=== PATIENT | male | born 1935 | race Caucasian/White ===

== ENCOUNTER → 2019-02-08 12:12 | Outpatient (CLI) | payer MEDICARE, OTHER, SELFPAY ==
--- NOTE | 2019-02-08 | DI.RAD.S_ITS ---
PROCEDURE: XR CHEST 2V INDICATIONS: SOB,COUGH TECHNIQUE: 2 views of the chest were acquired. COMPARISON: [facility], CHEST 2 VIEW, 09/11/2015, 15:47. [facility], CHEST 2 VIEW, 02/19/2018, 15:30. FINDINGS: Surgical changes and devices: Cardiac AICD as before Lungs and pleura: Diffuse ill-defined hazy and ground glass opacities throughout both lungs. There is elevation of right hemidiaphragm as before. No pleural effusions or pneumothorax. Mediastinum: Mediastinal contours are normal. Heart size is stable. Bones and chest wall: No suspicious bony abnormalities. Soft tissues appear unremarkable. IMPRESSION: Redemonstration of diffuse hazy ill-defined bilateral opacities, again suggesting pulmonary edema although given the lack of interim radiographs since 02/19/18, cannot exclude chronic severe interstitial disease. No definite focal consolidation. Please correlate clinically. If there is persistent clinical diagnostic uncertainty, continued surveillance with short interval chest radiographs after treatment is recommended. Dictated by: Jensen Cisneros M.D. on 02/08/2019 at 13:25 Approved by: Jensen Cisneros M.D. on 02/08/2019 at 13:27
== END ==
PROVIDERS: PCP Family Medicine; Visit Provider Family Medicine
DX: R05 Cough (principal); R06.02 Shortness of breath
CPT/HCPCS: 71046

== ENCOUNTER 2019-02-11 16:47 | Emergency (ER) | payer MEDICARE, OTHER, SELFPAY ==
[2019-02-11] VITALS (7 sets, daily range): BP systolic 107–141; BP diastolic 72–101; PULSE 73–75; RESP 13–24; TEMP 36.6; O2SAT 90–100
--- NOTE | 2019-02-11 17:29 | PC.NURSE ---
Patient c/o shaking that started APPX 5 days ago. Seen at PCP on Friday for same. Pt and family state that shaking is worse today. Tremors noted to increase with activity however shaking is constantly present
--- NOTE | 2019-02-11 17:49 | ED.EXTPRO ---
HPI - Extremity Problem <MERLY Javier - Last Filed: 02/11/19 22:05> General Chief complaint: Extremity Problem,Nontraumatic Stated complaint: UNCONTROLLED TREMORS Time Seen by Provider: 02/11/19 17:19 Source: patient and family Mode of arrival: wheelchair Limitations: no limitations History of Present Illness HPI Narrative: 83-year-old male with history of COPD, CHF and AFib that has a pacer here for complaint of having tremors to bilateral upper extremities into his torso over the past 3-4 days. reports that these tremors have worsened over the past couple of days. He is an everyday smoker. He smokes approximately half a pack a day. He lives at home he is normally ambulatory with the extent that he sees able to get up out of his recliner chair and go to the restroom and back to the recliner chair states that he spends most of his time in the recliner chair. No she chest pain no shortness of breath at this timeframe. No known fevers. He is tolerating p.o. intake he is drinking fluids. No abdominal pain. He has decreased and ability to ambulate due to these tremors over the past couple of days Related Data Home Medications Medication Instructions Recorded Confirmed carvedilol [Coreg] 37.5 mg PO BID #0 06/24/13 02/11/19 clopidogrel [Plavix] 75 mg PO QAM #0 06/24/13 02/11/19 albuterol sulfate [ProAir HFA] 2 puff INHALATION Q4H PRN 02/11/19 02/11/19 alfuzosin 10 mg PO DAILY 02/11/19 02/11/19 cefuroxime axetil 500 mg PO BID 02/11/19 02/11/19 cetirizine 10 mg PO DAILY PRN 02/11/19 02/11/19 furosemide 40 mg PO DAILY 02/11/19 02/11/19 prednisone See Rx Instructions .ROUTE .COMPLEX 02/11/19 02/11/19 pregabalin [Lyrica] 75 mg PO BID 02/11/19 02/11/19 warfarin 2.5 mg PO 2XW 02/11/19 02/11/19 warfarin 5 mg PO 5XW 02/11/19 02/11/19 Allergies Allergy/AdvReac Type Severity Reaction Status Date / Time aspirin Allergy Verified 02/11/19 17:13 Review of Systems <MERLY Javier - Last Filed: 02/11/19 22:05> Constitutional Denies chills, Denies fever(s), Denies lethargy and Denies weakness Eyes Denies change in vision, Denies eye discharge, Denies irritation and Denies loss of vision ENT Ears, Nose, Mouth, and Throat: Denies change in voice, Denies neck pain and Denies sore throat Cardiovascular Denies chest pain, Denies irregular heart rhythm, Denies lightheadedness, Denies palpitations, Denies dyspnea, Denies dyspnea on exertion and Denies orthopnea Respiratory Denies cough, Denies dyspnea, Denies dyspnea on exertion and Denies wheezing Gastrointestinal Gastrointestinal: Denies abdominal pain, Denies change in bowel habits, Denies diarrhea, Denies nausea and Denies vomiting Genitourinary Denies hematuria, Denies flank pain, Denies urinary incontinence and Denies urinary urgency Musculoskeletal Denies neck pain Comments: Tremors Integumentary/Breasts Denies pruritus, Denies erythema, Denies rash and Denies wounds Neurologic Denies confusion, Denies loss of vision and Denies weakness Psychiatric Denies anxiety, Denies confusion, Denies depression, Denies homicidal ideation and Denies suicidal ideation Endocrine Denies palpitations Hematologic/Lymphatic Denies easy bruising Allergic/Immunologic Denies wheezing PFSH <MERLY Javier - Last Filed: 02/11/19 22:05> Social History Smoking Status: Unknown if ever smoked Social History Smoking Status: Unknown if ever smoked Exam <MERLY Javier - Last Filed: 02/11/19 22:05> Initial Vital Signs Initial Vital Signs: Vital Signs Temperature 97.9 F 02/11/19 17:03 Pulse Rate 75 02/11/19 17:03 Respiratory Rate 13 02/11/19 17:03 Pulse Oximetry 90 L 02/11/19 17:03 Const General: cooperative Orientation: alert, awake and oriented x3 HENMT Mouth: oral mucosae normal and moist mucous membranes Eyes Conjunctivae: conjunctivae normal Sclera: sclerae normal Pupils: PERRL EOM: EOM intact bilaterally Resp Effort & Inspection: normal respiratory effort, able to speak in complete sentences, no respiratory distress and no use of accessory muscles Auscultation: rales, rhonchi and wheezes Cardio Rate: regular rate Rhythm: regular rhythm Heart Sounds: no click, no gallops, no murmurs and no rubs Pulses: normal peripheral pulses Skin General: no rashes or lesions noted, No jaundice and No petechiae Neuro General: alert, oriented x3, moves all extremities and other (Tremors to upper extremities and to torso that) Speech: speech normal Extrem General: full ROM, no clubbing, cyanosis or edema, no pedal edema and no calf tenderness <Maricarmen Dejesus MD - Last Filed: 02/12/19 05:34> Initial Vital Signs Initial Vital Signs: Vital Signs Temperature 97.9 F 02/11/19 17:03 Pulse Rate 75 02/11/19 17:03 Respiratory Rate 13 02/11/19 17:03 Pulse Oximetry 90 L 02/11/19 17:03 Course <MERLY Javier - Last Filed: 02/11/19 22:05> Orders Ordered: ED Orders 02/11/19 21:26 Arterial Blood Gas Stat 02/11/19 22:24 BiPAP Ventilatory Support RT PROTOCOL Vital Signs - 8 hr 02/11/19 22:50 Pulse Rate 75 Respiratory Rate 20 Blood Pressure [Right Arm] 140/72 Pulse Oximetry 100 <Maricarmen Dejesus MD - Last Filed: 02/12/19 05:34> Orders Ordered: ED Orders 02/11/19 21:26 Arterial Blood Gas Stat 02/11/19 22:24 BiPAP Ventilatory Support RT PROTOCOL Vital Signs - 8 hr 02/11/19 22:50 Pulse Rate 75 Respiratory Rate 20 Blood Pressure [Right Arm] 140/72 Pulse Oximetry 100 MDM - Extremity (Nontraumatic) <MERLY Javier - Last Filed: 02/11/19 22:05> Lab Data Result diagrams: 02/11/19 17:00 02/11/19 18:39 Lab Results 02/11/19 02/11/19 02/11/19 Range/Units 17:00 17:45 18:39 WBC 9.8 (4.5-11.0) X10^3/uL RBC 5.10 (4.5-5.9) X10^6/uL Hgb 14.1 (13.5-17.5) g/dL Hct 45.1 (41-53) % MCV 88.4 (80-100) fL MCH 27.5 (26-34) PG MCHC 31.2 (30-36) % RDW 17.3 H (11.6-14.8) % Plt Count 134 L (150-400) X10^3/uL Neut % (Auto) 88.1 H (50-75) % Lymph % (Auto) 6.2 L (25-40) % [place] % (Auto) 5.4 (3-14) % Eos % (Auto) 0.0 L (2-4) % Baso % (Auto) 0.3 (0-2) % Neut # (Auto) 8700 H (3581-3027) /uL Lymph # (Auto) 600 L (7794-9365) /uL [place] # (Auto) 500 (0-900) /uL Eos # (Auto) 0 (0-450) /uL Baso # (Auto) 0 (0-100) /uL PT 56.8 H (10.1-12.7) SECONDS INR 4.7 H* (0.9-1.3) ABG pH (7.35-7.45) ABG pCO2 (35-45) mmHg ABG pO2 (80-100) mmHg ABG HCO3 (22-26) mmol/L ABG Total CO2 (21-31) mmol/L ABG O2 Saturation (95-100) % ABG Base Excess (-2-2) mmol/L FiO2 Sodium (137-145) mmol/L Potassium (3.4-5.1) mmol/L Chloride (98-107) mmol/L Carbon Dioxide (22-32) mmol/L BUN (9-20) mg/dL Creatinine (0.66-1.25) mg/dL Estimated GFR (>60) mL/min BUN/Creatinine Ratio (6-22) Glucose (80-110) mg/dL Lactate (0.7-2.1) mmol/L Calcium (8.4-10.2) mg/dL Magnesium (1.6-2.3) mg/dL Total Bilirubin (0.2-1.3) mg/dL AST (17-59) IU/L ALT (21-72) IU/L Alkaline Phosphatase (38-126) U/L Total Creatine Kinase (55-170) U/L CK-MB (CK-2) CK-MB (CK-2) Rel Index Troponin I (0.01-0.034) ng/mL B-Natriuretic Peptide 325 H (<100) Total Protein (6.3-8.2) g/dL Albumin (3.5-5.0) g/dL Globulin (1.7-4.1) g/dL Albumin/Globulin Ratio (1.0-2.8) Procalcitonin (<0.5) ng/mL Urine RBC (0-5/HPF) Urine WBC (0-5/HPF) Ur Squamous Epith Cells Urine Bacteria (None) Ur Culture Indicated? 02/11/19 02/11/19 02/11/19 Range/Units 18:39 18:39 18:39 WBC (4.5-11.0) X10^3/uL RBC (4.5-5.9) X10^6/uL Hgb (13.5-17.5) g/dL Hct (41-53) % MCV (80-100) fL MCH (26-34) PG MCHC (30-36) % RDW (11.6-14.8) % Plt Count (150-400) X10^3/uL Neut % (Auto) (50-75) % Lymph % (Auto) (25-40) % [place] % (Auto) (3-14) % Eos % (Auto) (2-4) % Baso % (Auto) (0-2) % Neut # (Auto) (1708-4940) /uL Lymph # (Auto) (3171-6043) /uL [place] # (Auto) (0-900) /uL Eos # (Auto) (0-450) /uL Baso # (Auto) (0-100) /uL PT (10.1-12.7) SECONDS INR (0.9-1.3) ABG pH (7.35-7.45) ABG pCO2 (35-45) mmHg ABG pO2 (80-100) mmHg ABG HCO3 (22-26) mmol/L ABG Total CO2 (21-31) mmol/L ABG O2 Saturation (95-100) % ABG Base Excess (-2-2) mmol/L FiO2 Sodium 142 (137-145) mmol/L Potassium 5.2 H (3.4-5.1) mmol/L Chloride 104 (98-107) mmol/L Carbon Dioxide 29 (22-32) mmol/L BUN 89 H (9-20) mg/dL Creatinine 3.10 H (0.66-1.25) mg/dL Estimated GFR 19.4 L (>60) mL/min BUN/Creatinine Ratio 28.7 H (6-22) Glucose 125 H (80-110) mg/dL Lactate 1.3 (0.7-2.1) mmol/L Calcium 8.2 L (8.4-10.2) mg/dL Magnesium (1.6-2.3) mg/dL Total Bilirubin 0.7 (0.2-1.3) mg/dL AST 18 (17-59) IU/L ALT 24 (21-72) IU/L Alkaline Phosphatase 47 (38-126) U/L Total Creatine Kinase 25 L (55-170) U/L CK-MB (CK-2) TNP CK-MB (CK-2) Rel Index TNP Troponin I < 0.012 (0.01-0.034) ng/mL B-Natriuretic Peptide (<100) Total Protein 6.5 (6.3-8.2) g/dL Albumin 3.8 (3.5-5.0) g/dL Globulin 2.7 (1.7-4.1) g/dL Albumin/Globulin Ratio 1.4 (1.0-2.8) Procalcitonin < 0.05 (<0.5) ng/mL Urine RBC (0-5/HPF) Urine WBC (0-5/HPF) Ur Squamous Epith Cells Urine Bacteria (None) Ur Culture Indicated? 02/11/19 02/11/19 02/11/19 Range/Units 18:39 19:42 21:26 WBC (4.5-11.0) X10^3/uL RBC (4.5-5.9) X10^6/uL Hgb (13.5-17.5) g/dL Hct (41-53) % MCV (80-100) fL MCH (26-34) PG MCHC (30-36) % RDW (11.6-14.8) % Plt Count (150-400) X10^3/uL Neut % (Auto) (50-75) % Lymph % (Auto) (25-40) % [place] % (Auto) (3-14) % Eos % (Auto) (2-4) % Baso % (Auto) (0-2) % Neut # (Auto) (6511-6432) /uL Lymph # (Auto) (0274-0016) /uL [place] # (Auto) (0-900) /uL Eos # (Auto) (0-450) /uL Baso # (Auto) (0-100) /uL PT (10.1-12.7) SECONDS INR (0.9-1.3) ABG pH 7.18 L* (7.35-7.45) ABG pCO2 80.0 H* (35-45) mmHg ABG pO2 49 L* (80-100) mmHg ABG HCO3 30 H (22-26) mmol/L ABG Total CO2 33 H (21-31) mmol/L ABG O2 Saturation 72 L* (95-100) % ABG Base Excess 2.0 (-2-2) mmol/L FiO2 21 Sodium (137-145) mmol/L Potassium (3.4-5.1) mmol/L Chloride (98-107) mmol/L Carbon Dioxide (22-32) mmol/L BUN (9-20) mg/dL Creatinine (0.66-1.25) mg/dL Estimated GFR (>60) mL/min BUN/Creatinine Ratio (6-22) Glucose (80-110) mg/dL Lactate (0.7-2.1) mmol/L Calcium (8.4-10.2) mg/dL Magnesium 2.5 H (1.6-2.3) mg/dL Total Bilirubin (0.2-1.3) mg/dL AST (17-59) IU/L ALT (21-72) IU/L Alkaline Phosphatase (38-126) U/L Total Creatine Kinase (55-170) U/L CK-MB (CK-2) CK-MB (CK-2) Rel Index Troponin I (0.01-0.034) ng/mL B-Natriuretic Peptide (<100) Total Protein (6.3-8.2) g/dL Albumin (3.5-5.0) g/dL Globulin (1.7-4.1) g/dL Albumin/Globulin Ratio (1.0-2.8) Procalcitonin (<0.5) ng/mL Urine RBC None seen (0-5/HPF) Urine WBC 0-1/hpf (0-5/HPF) Ur Squamous Epith Cells 0-1 /hpf Urine Bacteria None seen (None) Ur Culture Indicated? Cult not indicated Urine Dip Bedside Urine Glucose Negative Bedside Urine Bilirubin - Negative Bedside Urine Ketone - Negative Urine Specific Mena 1.020 Bedside Urine Occult Blood - Negative Bedside Urine pH 6.0 Bedside Urine Protein ++ 100 Bedside Urine Urobilinogen - Negative Bedside Urine Nitrite - Negative Bedside Urine Leukocytes - Negative Esterase Imaging Data Chest x-ray: Radiologist's impression: [address] [address] XRay Report Signed Patient: Neal Caal TMR#: [id number] : 6Acct:[id number] Age/Sex: 83 / MDate of Service: 02/11/19 Loc: ED Accession Number: [id number] Procedure: XR chest 1V Ordering Provider: Clarence Kearney PROCEDURE: XR CHEST 1V INDICATIONS: Tremors and weakness TECHNIQUE: One view of the chest was acquired. [facility] 12[facility]10. FINDINGS: Surgical changes and devices: Right-sided cardiac pacer device is unchanged in position. Lungs and pleura: Stable appearance of diffuse, ill-defined hazy and ground glass opacities of the bilateral hemithoraces. No new focal consolidations. No substantial pleural effusion. No pneumothorax. Mediastinum: Cardiomediastinal contours are stable with prominence of the cardiac silhouette.. Bones and chest wall: No suspicious bony lesions. Overlying soft tissues appear unremarkable. IMPRESSION: Stable cardiopulmonary examination with persistent diffuse, ill-defined hazy groundglass opacities of the bilateral hemithoraces. Dictated by: John Walker M.D. on 02/11/2019 at 20:12 Approved by: John Walker M.D. on 02/11/2019 at 20:15 CT scan - head: Radiologist's impression: [address] [address] [address] Scan Report Signed Patient: Neal Caal TMR#: [id number] : 6Acct:[id number] Age/Sex: 83 / MDate of Service: 02/11/19 Loc: ED Accession Number: [id number] Procedure: CT head/brain wo con Ordering Provider: Clarence Kearney PROCEDURE: CT HEAD/BRAIN WO CON INDICATIONS: Tremors over the last few days TECHNIQUE: Noncontrast 4.5 mm thick angled axial sections acquired from the foramen magnum to the vertex, with coronal and sagittal reformats. For radiation dose reduction, the following was used: automated exposure control, adjustment of mA and/or kV according to patient size. COMPARISON: None. FINDINGS: Image quality: While beam hardening artifact. CSF spaces: Basal cisterns are patent. No extra-axial fluid collections. The ventricles are symmetric in size and shape. Brain: No intracranial bleeds or masses. There is cerebral volume loss for age, with resultant ventricular and sulcal prominence. There are periventricular and deep white matter chronic small vessel ischemic changes. There is intracranial internal carotid artery atherosclerosis. Skull and face: Calvarium and visualized facial bones appear intact, without suspicious lesions. Chronic appearing nasal bone fractures. Sinuses: There is complete opacification of the right maxillary sinus and scattered ethmoid sinuses. The mastoids are clear. IMPRESSION: CT head without acute intracranial abnormalities. Age-related senescent changes and sequela of chronic small vessel ischemic disease. Right maxillary and scattered ethmoid sinus disease. Dictated by: John Walker M.D. on 02/11/2019 at 18:49 Approved by: John Walker M.D. on 02/11/2019 at 18:51 ECG Data Interpretation: EKG shows paced rhythm no ST elevation or depression. No ectopy. Ventricular rate is 75. QRS duration was 66. QTC 426. MDM Narrative Medical decision making narrative: CT scan of the head was obtained was negative for any acute findings. Chest x-ray was obtained and shows stable cardiopulmonary presentation with ground-glass opacities to bilateral rigo thoracis no focal consolidation. CBC was obtained and will white count was unremarkable. H&H was unremarkable. Chem panel shows decreased GFR of 19.4 with elevated creatinine at 3.1 and BUN of 89. Potassium was 5.2 magnesium was 2.5 calcium was 8.2. Cardiac enzymes were obtained were unremarkable. BNP was elevated at 325. Family does not believe that he has a history of having kidney issues so probable acute kidney failure. A bg shows respiratory acidosis with a pH of 7.18 for pCO2 of 80. PO2 of 49 and H CO3 of 30. He is placed on BiPAP. Discussed case with Neurology at [facility] who states that most likely is the renal function and his uremia that is causing the myoclonus. He believes that once the kidney function is improved the myoclonus will be remedied. Due to possibility of a fluctuations in his renal function wanted patient to be transferred to a facility that has dialysis. [facility] was full so patient is sent to [place]. Discussed case with Dr. Correa sales exhibitor who accepted patient patient is sent to [place] via [facility]. <Maricarmen Dejesus MD - Last Filed: 02/12/19 05:34> Lab Data Lab Results 02/11/19 02/11/19 02/11/19 Range/Units 17:00 17:45 18:39 WBC 9.8 (4.5-11.0) X10^3/uL RBC 5.10 (4.5-5.9) X10^6/uL Hgb 14.1 (13.5-17.5) g/dL Hct 45.1 (41-53) % MCV 88.4 (80-100) fL MCH 27.5 (26-34) PG MCHC 31.2 (30-36) % RDW 17.3 H (11.6-14.8) % Plt Count 134 L (150-400) X10^3/uL Neut % (Auto) 88.1 H (50-75) % Lymph % (Auto) 6.2 L (25-40) % [place] % (Auto) 5.4 (3-14) % Eos % (Auto) 0.0 L (2-4) % Baso % (Auto) 0.3 (0-2) % Neut # (Auto) 8700 H (4970-6493) /uL Lymph # (Auto) 600 L (4576-2715) /uL [place] # (Auto) 500 (0-900) /uL Eos # (Auto) 0 (0-450) /uL Baso # (Auto) 0 (0-100) /uL PT 56.8 H (10.1-12.7) SECONDS INR 4.7 H* (0.9-1.3) ABG pH (7.35-7.45) ABG pCO2 (35-45) mmHg ABG pO2 (80-100) mmHg ABG HCO3 (22-26) mmol/L ABG Total CO2 (21-31) mmol/L ABG O2 Saturation (95-100) % ABG Base Excess (-2-2) mmol/L FiO2 Sodium (137-145) mmol/L Potassium (3.4-5.1) mmol/L Chloride (98-107) mmol/L Carbon Dioxide (22-32) mmol/L BUN (9-20) mg/dL Creatinine (0.66-1.25) mg/dL Estimated GFR (>60) mL/min BUN/Creatinine Ratio (6-22) Glucose (80-110) mg/dL Lactate (0.7-2.1) mmol/L Calcium (8.4-10.2) mg/dL Magnesium (1.6-2.3) mg/dL Total Bilirubin (0.2-1.3) mg/dL AST (17-59) IU/L ALT (21-72) IU/L Alkaline Phosphatase (38-126) U/L Total Creatine Kinase (55-170) U/L CK-MB (CK-2) CK-MB (CK-2) Rel Index Troponin I (0.01-0.034) ng/mL B-Natriuretic Peptide 325 H (<100) Total Protein (6.3-8.2) g/dL Albumin (3.5-5.0) g/dL Globulin (1.7-4.1) g/dL Albumin/Globulin Ratio (1.0-2.8) Procalcitonin (<0.5) ng/mL Urine RBC (0-5/HPF) Urine WBC (0-5/HPF) Ur Squamous Epith Cells Urine Bacteria (None) Ur Culture Indicated? 02/11/19 02/11/19 02/11/19 Range/Units 18:39 18:39 18:39 WBC (4.5-11.0) X10^3/uL RBC (4.5-5.9) X10^6/uL Hgb (13.5-17.5) g/dL Hct (41-53) % MCV (80-100) fL MCH (26-34) PG MCHC (30-36) % RDW (11.6-14.8) % Plt Count (150-400) X10^3/uL Neut % (Auto) (50-75) % Lymph % (Auto) (25-40) % [place] % (Auto) (3-14) % Eos % (Auto) (2-4) % Baso % (Auto) (0-2) % Neut # (Auto) (6557-6662) /uL Lymph # (Auto) (2772-2735) /uL [place] # (Auto) (0-900) /uL Eos # (Auto) (0-450) /uL Baso # (Auto) (0-100) /uL PT (10.1-12.7) SECONDS INR (0.9-1.3) ABG pH (7.35-7.45) ABG pCO2 (35-45) mmHg ABG pO2 (80-100) mmHg ABG HCO3 (22-26) mmol/L ABG Total CO2 (21-31) mmol/L ABG O2 Saturation (95-100) % ABG Base Excess (-2-2) mmol/L FiO2 Sodium 142 (137-145) mmol/L Potassium 5.2 H (3.4-5.1) mmol/L Chloride 104 (98-107) mmol/L Carbon Dioxide 29 (22-32) mmol/L BUN 89 H (9-20) mg/dL Creatinine 3.10 H (0.66-1.25) mg/dL Estimated GFR 19.4 L (>60) mL/min BUN/Creatinine Ratio 28.7 H (6-22) Glucose 125 H (80-110) mg/dL Lactate 1.3 (0.7-2.1) mmol/L Calcium 8.2 L (8.4-10.2) mg/dL Magnesium (1.6-2.3) mg/dL Total Bilirubin 0.7 (0.2-1.3) mg/dL AST 18 (17-59) IU/L ALT 24 (21-72) IU/L Alkaline Phosphatase 47 (38-126) U/L Total Creatine Kinase 25 L (55-170) U/L CK-MB (CK-2) TNP CK-MB (CK-2) Rel Index TNP Troponin I < 0.012 (0.01-0.034) ng/mL B-Natriuretic Peptide (<100) Total Protein 6.5 (6.3-8.2) g/dL Albumin 3.8 (3.5-5.0) g/dL Globulin 2.7 (1.7-4.1) g/dL Albumin/Globulin Ratio 1.4 (1.0-2.8) Procalcitonin < 0.05 (<0.5) ng/mL Urine RBC (0-5/HPF) Urine WBC (0-5/HPF) Ur Squamous Epith Cells Urine Bacteria (None) Ur Culture Indicated? 02/11/19 02/11/19 02/11/19 Range/Units 18:39 19:42 21:26 WBC (4.5-11.0) X10^3/uL RBC (4.5-5.9) X10^6/uL Hgb (13.5-17.5) g/dL Hct (41-53) % MCV (80-100) fL MCH (26-34) PG MCHC (30-36) % RDW (11.6-14.8) % Plt Count (150-400) X10^3/uL Neut % (Auto) (50-75) % Lymph % (Auto) (25-40) % [place] % (Auto) (3-14) % Eos % (Auto) (2-4) % Baso % (Auto) (0-2) % Neut # (Auto) (0465-7731) /uL Lymph # (Auto) (7345-3435) /uL [place] # (Auto) (0-900) /uL Eos # (Auto) (0-450) /uL Baso # (Auto) (0-100) /uL PT (10.1-12.7) SECONDS INR (0.9-1.3) ABG pH 7.18 L* (7.35-7.45) ABG pCO2 80.0 H* (35-45) mmHg ABG pO2 49 L* (80-100) mmHg ABG HCO3 30 H (22-26) mmol/L ABG Total CO2 33 H (21-31) mmol/L ABG O2 Saturation 72 L* (95-100) % ABG Base Excess 2.0 (-2-2) mmol/L FiO2 21 Sodium (137-145) mmol/L Potassium (3.4-5.1) mmol/L Chloride (98-107) mmol/L Carbon Dioxide (22-32) mmol/L BUN (9-20) mg/dL Creatinine (0.66-1.25) mg/dL Estimated GFR (>60) mL/min BUN/Creatinine Ratio (6-22) Glucose (80-110) mg/dL Lactate (0.7-2.1) mmol/L Calcium (8.4-10.2) mg/dL Magnesium 2.5 H (1.6-2.3) mg/dL Total Bilirubin (0.2-1.3) mg/dL AST (17-59) IU/L ALT (21-72) IU/L Alkaline Phosphatase (38-126) U/L Total Creatine Kinase (55-170) U/L CK-MB (CK-2) CK-MB (CK-2) Rel Index Troponin I (0.01-0.034) ng/mL B-Natriuretic Peptide (<100) Total Protein (6.3-8.2) g/dL Albumin (3.5-5.0) g/dL Globulin (1.7-4.1) g/dL Albumin/Globulin Ratio (1.0-2.8) Procalcitonin (<0.5) ng/mL Urine RBC None seen (0-5/HPF) Urine WBC 0-1/hpf (0-5/HPF) Ur Squamous Epith Cells 0-1 /hpf Urine Bacteria None seen (None) Ur Culture Indicated? 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, Myoclonus Acute renal failure Qualifiers: Acute renal failure type: unspecified Qualified Code(s): N17.9 - Acute kidney failure, unspecified Discharge Date/Time: 02/11/19 23:23 Interventions: ED Discharge Assessment Last Done: 03/21/19 23:23 Prescriptions: No Action carvedilol [Coreg] 25 MG tablet 37.5 mg PO BID Qty: 0 RF: 0 clopidogrel [Plavix] 75 MG tablet 75 mg PO QAM Qty: 0 RF: 0 prednisone 20 mg tablet See Rx Instructions .ROUTE .COMPLEX RF: 0 warfarin 5 mg tablet 5 mg PO 5XW RF: 0 furosemide 20 mg tablet 40 mg PO DAILY RF: 0 cefuroxime axetil 500 mg tablet 500 mg PO BID RF: 0 albuterol sulfate [ProAir HFA] 90 mcg/actuation HFA aerosol inhaler 2 puff Inhalation Q4H PRN (Reason: Shortness Of Breath) RF: 0 alfuzosin 10 mg tablet extended release 24 hr 10 mg PO DAILY RF: 0 Lyrica 75 mg capsule 75 mg PO BID RF: 0 cetirizine 10 mg Tablet 10 mg PO DAILY PRN (Reason: Allergy Symptoms) RF: 0 warfarin 5 mg tablet 2.5 mg PO 2XW RF: 0 Referrals: Mat Rodriguez MD [Primary Care Provider] -
--- NOTE | 2019-02-11 17:56 | DI.CT.S_ITS ---
PROCEDURE: CT HEAD/BRAIN WO CON INDICATIONS: Tremors over the last few days TECHNIQUE: Noncontrast 4.5 mm thick angled axial sections acquired from the foramen magnum to the vertex, with coronal and sagittal reformats. For radiation dose reduction, the following was used: automated exposure control, adjustment of mA and/or kV according to patient size. COMPARISON: None. FINDINGS: Image quality: While beam hardening artifact. CSF spaces: Basal cisterns are patent. No extra-axial fluid collections. The ventricles are symmetric in size and shape. Brain: No intracranial bleeds or masses. There is cerebral volume loss for age, with resultant ventricular and sulcal prominence. There are periventricular and deep white matter chronic small vessel ischemic changes. There is intracranial internal carotid artery atherosclerosis. Skull and face: Calvarium and visualized facial bones appear intact, without suspicious lesions. Chronic appearing nasal bone fractures. Sinuses: There is complete opacification of the right maxillary sinus and scattered ethmoid sinuses. The mastoids are clear. IMPRESSION: CT head without acute intracranial abnormalities. Age-related senescent changes and sequela of chronic small vessel ischemic disease. Right maxillary and scattered ethmoid sinus disease. Dictated by: John Walker M.D. on 02/11/2019 at 18:49 Approved by: John Walker M.D. on 02/11/2019 at 18:51
--- NOTE | 2019-02-11 17:56 | DI.RAD.S_ITS ---
PROCEDURE: XR CHEST 1V INDICATIONS: Tremors and weakness TECHNIQUE: One view of the chest was acquired. COMPARISON: [facility], CR, XR CHEST 2V, 02/08/2019, 12:10. FINDINGS: Surgical changes and devices: Right-sided cardiac pacer device is unchanged in position. Lungs and pleura: Stable appearance of diffuse, ill-defined hazy and ground glass opacities of the bilateral hemithoraces. No new focal consolidations. No substantial pleural effusion. No pneumothorax. Mediastinum: Cardiomediastinal contours are stable with prominence of the cardiac silhouette.. Bones and chest wall: No suspicious bony lesions. Overlying soft tissues appear unremarkable. IMPRESSION: Stable cardiopulmonary examination with persistent diffuse, ill-defined hazy groundglass opacities of the bilateral hemithoraces. Dictated by: John Walker M.D. on 02/11/2019 at 20:12 Approved by: John Walker M.D. on 02/11/2019 at 20:15
[2019-02-11 18:24] LABS: Add Manual Diff / Slide Review NO; Basophils Absolute Auto 0 /uL (0-100); Basophils Percent Auto 0.3 % (0-2); Eosinophils Absolute Auto 0 /uL (0-450); Hematocrit 45.1 % (41-53); Hemoglobin 14.1 g/dL (13.5-17.5); Lymphocytes Absolute Auto 600 /uL (1100-4500); Lymphocytes Percent Auto 6.2 % (25-40); Mean Corpuscular HGB Conc 31.2 % (30-36); Mean Corpuscular Hemoglobin 27.5 PG (26-34); Mean Corpuscular Volume 88.4 fL (80-100); Monocytes Absolute Auto 500 /uL (0-900); Monocytes Percent Auto 5.4 % (3-14); Neutrophils Absolute Auto 8700 /uL (1500-7000); Neutrophils Percent Auto 88.1 % (50-75); Platelet Count 134 X10^3/uL (150-400); Red Cell Distribution Width 17.3 % (11.6-14.8); White Blood Cell Count 9.8 X10^3/uL (4.5-11.0)
[2019-02-11 18:58] LABS: Prothrombin Time 56.8 SECONDS (10.1-12.7)
[2019-02-11 19:02] LABS: Lactate (Lactic Acid) 1.3 mmol/L (0.7-2.1)
[2019-02-11 19:03] LABS: INR 4.7 (0.9-1.3)
[2019-02-11 19:06] LABS: Alanine Aminotransferase 24 IU/L (21-72); Albumin 3.8 g/dL (3.5-5.0); Albumin Globulin Ratio 1.4 (1.0-2.8); Alkaline Phosphatase 47 U/L (38-126); Aspartate Aminotransferase 18 IU/L (17-59); BUN Creatinine Ratio 28.7 (6-22); Bilirubin Total 0.7 mg/dL (0.2-1.3); Blood Urea Nitrogen 89 mg/dL (9-20); Calcium 8.2 mg/dL (8.4-10.2); Carbon Dioxide 29 mmol/L (22-32); Chloride 104 mmol/L (98-107); Creatine Kinase 25 U/L (55-170); Estimated Glomerular Filt Rate 19.4 mL/min (>60); Globulin 2.7 g/dL (1.7-4.1); Glucose 125 mg/dL (80-110); HEMOLYSIS < 15 (0-50); Potassium 5.2 mmol/L (3.4-5.1); Sodium 142 mmol/L (137-145); Total Protein 6.5 g/dL (6.3-8.2)
[2019-02-11 19:18] LABS: Troponin I < 0.012 ng/mL (0.01-0.034)
[2019-02-11 19:27] LABS: Magnesium 2.5 mg/dL (1.6-2.3)
[2019-02-11 19:30] LABS: Procalcitonin < 0.05 ng/mL (<0.5)
[2019-02-11 19:38] LABS: B Type Natriuretic Peptide 325 (<100)
[2019-02-11 19:45] LABS: Bacteria Urine None Seen; RBC Urine None Seen (0-5/HPF)
[2019-02-11 20:07] LABS: Culture Indicated Urine Cult Not Indicated; Squamous Epithelial Cell Urine 0-1 /HPF; WBC Urine 0-1/HPF (0-5/HPF)
[2019-02-11 21:40] LABS: HCO3 ABG 30 mmol/L (22-26); PO2 ABG 49 mmHg (80-100); pH ABG 7.18 (7.35-7.45)
[2019-02-11 21:41] LABS: Fractionated Inspired Oxygen 21; Oxygen Saturation ABG 72 % (95-100); TCO2 ABG 33 mmol/L (21-31)
--- NOTE | 2019-02-11 22:05 | ED_ITS ---
HPI - Extremity Problem <MERLY Javier - Last Filed: 02/11/19 22:05> General Chief complaint: Extremity Problem,Nontraumatic Stated complaint: UNCONTROLLED TREMORS Time Seen by Provider: 02/11/19 17:19 Source: patient and family Mode of arrival: wheelchair Limitations: no limitations History of Present Illness HPI Narrative: 83-year-old male with history of COPD, CHF and AFib that has a pacer here for complaint of having tremors to bilateral upper extremities into his torso over the past 3-4 days. reports that these tremors have worsened over the past couple of days. He is an everyday smoker. He smokes approximately half a pack a day. He lives at home he is normally ambulatory with the extent that he sees able to get up out of his recliner chair and go to the restroom and back to the recliner chair states that he spends most of his time in the recliner chair. No she chest pain no shortness of breath at this timeframe. No known fevers. He is tolerating p.o. intake he is drinking fluids. No abdominal pain. He has decreased and ability to ambulate due to th leti tremors over the past couple of days Related Data Home Medications Medication Instructions Recorded Confirmed carvedilol [Coreg] 37.5 mg PO BID #0 06/24/13 02/11/19 clopidogrel [Plavix] 75 mg PO QAM #0 06/24/13 02/11/19 albuterol sulfate [ProAir HFA] 2 puff INHALATION Q4H PRN 02/11/19 02/11/19 alfuzosin 10 mg PO DAILY 02/11/19 02/11/19 cefuroxime axetil 500 mg PO BID 02/11/19 02/11/19 cetirizine 10 mg PO DAILY PRN 02/11/19 02/11/19 furosemide 40 mg PO DAILY 02/11/19 02/11/19 prednisone See Rx Instructions .ROUTE .COMPLEX 02/11/19 02/11/19 pregabalin [Lyrica] 75 mg PO BID 02/11/19 02/11/19 warfarin 2.5 mg PO 2XW 02/11/19 02/11/19 warfarin 5 mg PO 5XW 02/11/19 02/11/19 Allergies Allergy/AdvReac Type Severity Reaction Status Date / Time aspirin Allergy Verified 02/11/19 17:13 Review of Systems <MERLY Javier - Last Filed: 02/11/19 22:05> Constitutional Denies chills, Denies fever(s), Denies lethargy and Denies weakness Eyes Denies change in vision, Denies eye discharge, Denies irritation and Denies loss of vision ENT Ears, Nose, Mouth, and Throat: Denies change in voice, Denies neck pain and Denies sore throat Cardiovascular Denies chest pain, Denies irregular heart rhythm, Denies lightheadedness, Denies palpitations, Denies dyspnea, Denies dyspnea on exertion and Denies orthopnea Respiratory Denies cough, Denies dyspnea, Denies dyspnea on exertion and Denies wheezing Gastrointestinal Gastrointestinal: Denies abdominal pain, Denies change in bowel habits, Denies diarrhea, Denies nausea and Denies vomiting Genitourinary Denies hematuria, Denies flank pain, Denies urinary incontinence and Denies urinary urgency Musculoskeletal Denies neck pain Comments: Tremors Integumentary/Breasts Denies pruritus, Denies erythema, Denies rash and Denies wounds Neurologic Denies confusion, Denies loss of vision and Denies weakness Psychiatric Denies anxiety, Denies confusion, Denies depression, Denies homicidal ideation and Denies suicidal ideation Endocrine Denies palpitations Hematologic/Lymphatic Denies easy bruising Allergic/Immunologic Denies wheezing PFSH <MERLY Javier - Last Filed: 02/11/19 22:05> Social History Smoking Status: Unknown if ever smoked Social History Smoking Status: Unknown if ever smoked Exam <MERLY Javier - Last Filed: 02/11/19 22:05> Initial Vital Signs Initial Vital Signs: Vital Signs Temperature 97.9 F 02/11/19 17:03 Pulse Rate 75 02/11/19 17:03 Respiratory Rate 13 02/11/19 17:03 Pulse Oximetry 90 L 02/11/19 17:03 Const General: cooperative Orientation: alert, awake and oriented x3 HENMT Mouth: oral mucosae normal and moist mucous membranes Eyes Conjunctivae: conjunctivae normal Sclera: sclerae normal Pupils: PERRL EOM: EOM intact bilaterally Resp Effort & Inspection: normal respiratory effort, able to speak in complete sentences, no respiratory distress and no use of accessory muscles Auscultation: rales, rhonchi and wheezes Cardio Rate: regular rate Rhythm: regular rhythm Heart Sounds: no click, no gallops, no murmurs and no rubs Pulses: normal peripheral pulses Skin General: no rashes or lesions noted, No jaundice and No petechiae Neuro General: alert, oriented x3, moves all extremities and other (Tremors to upper extremities and to torso that) Speech: speech normal Extrem General: full ROM, no clubbing, cyanosis or edema, no pedal edema and no calf tenderness <Maricarmen Dejesus MD - Last Filed: 02/12/19 05:34> Initial Vital Signs Initial Vital Signs: Vital Signs Temperature 97.9 F 02/11/19 17:03 Pulse Rate 75 02/11/19 17:03 Respiratory Rate 13 02/11/19 17:03 Pulse Oximetry 90 L 02/11/19 17:03 Course <MERLY Javier - Last Filed: 02/11/19 22:05> Orders Ordered: ED Orders 02/11/19 21:26 Arterial Blood Gas Stat 02/11/19 22:24 BiPAP Ventilatory Support RT PROTOCOL Vital Signs - 8 hr 02/11/19 22:50 Pulse Rate 75 Respiratory Rate 20 Blood Pressure [Right Arm] 140/72 Pulse Oximetry 100 <Maricarmen Dejesus MD - Last Filed: 02/12/19 05:34> Orders Ordered: ED Orders 02/11/19 21:26 Arterial Blood Gas Stat 02/11/19 22:24 BiPAP Ventilatory Support RT PROTOCOL Vital Signs - 8 hr 02/11/19 22:50 Pulse Rate 75 Respiratory Rate 20 Blood Pressure [Right Arm] 140/72 Pulse Oximetry 100 MDM - Extremity (Nontraumatic) <MERLY Javier - Last Filed: 02/11/19 22:05> Lab Data Result diagrams: 02/11/19 17:00 02/11/19 18:39 Lab Results 02/11/19 02/11/19 02/11/19 Range/Units 17:00 17:45 18:39 WBC 9.8 (4.5-11.0) X10^3/uL RBC 5.10 (4.5-5.9) X10^6/uL Hgb 14.1 (13.5-17.5) g/dL Hct 45.1 (41-53) % MCV 88.4 (80-100) fL MCH 27.5 (26-34) PG MCHC 31.2 (30-36) % RDW 17.3 H (11.6-14.8) % Plt Count 134 L (150-400) X10^3/uL Neut % (Auto) 88.1 H (50-75) % Lymph % (Auto) 6.2 L (25-40) % [place] % (Auto) 5.4 (3-14) % Eos % (Auto) 0.0 L (2-4) % Baso % (Auto) 0.3 (0-2) % Neut # (Auto) 8700 H (7167-7879) /uL Lymph # (Auto) 600 L (9902-4999) /uL [place] # (Auto) 500 (0-900) /uL Eos # (Auto) 0 (0-450) /uL Baso # (Auto) 0 (0-100) /uL PT 56.8 H (10.1-12.7) SECONDS INR 4.7 H* (0.9-1.3) ABG pH (7.35-7.45) ABG pCO2 (35-45) mmHg ABG pO2 (80-100) mmHg ABG HCO3 (22-26) mmol/L ABG Total CO2 (21-31) mmol/L ABG O2 Saturation (95-100) % ABG Base Excess (-2-2) mmol/L FiO2 Sodium (137-145) mmol/L Potassium (3.4-5.1) mmol/L Chloride (98-107) mmol/L Carbon Dioxide (22-32) mmol/L BUN (9-20) mg/dL Creatinine (0.66-1.25) mg/dL Estimated GFR (>60) mL/min BUN/Creatinine Ratio (6-22) Glucose (80-110) mg/dL Lactate (0.7-2.1) mmol/L Calcium (8.4-10.2) mg/dL Magnesium (1.6-2.3) mg/dL Total Bilirubin (0.2-1.3) mg/dL AST (17-59) IU/L ALT (21-72) IU/L Alkaline Phosphatase (38-126) U/L Total Creatine Kinase (55-170) U/L CK-MB (CK-2) CK-MB (CK-2) Rel Index Troponin I (0.01-0.034) ng/mL B-Natriuretic Peptide 325 H (<100) Total Protein (6.3-8.2) g/dL Albumin (3.5-5.0) g/dL Globulin (1.7-4.1) g/dL Albumin/Globulin Ratio (1.0-2.8) Procalcitonin (<0.5) ng/mL Urine RBC (0-5/HPF) Urine WBC (0-5/HPF) Ur Squamous Epith Cells Urine Bacteria (None) Ur Culture Indicated? 02/11/19 02/11/19 02/11/19 Range/Units 18:39 18:39 18:39 WBC (4.5-11.0) X10^3/uL RBC (4.5-5.9) X10^6/uL Hgb (13.5-17.5) g/dL Hct (41-53) % MCV (80-100) fL MCH (26-34) PG MCHC (30-36) % RDW (11.6-14.8) % Plt Count (150-400) X10^3/uL Neut % (Auto) (50-75) % Lymph % (Auto) (25-40) % [place] % (Auto) (3-14) % Eos % (Auto) (2-4) % Baso % (Auto) (0-2) % Neut # (Auto) (0007-9806) /uL Lymph # (Auto) (5021-7053) /uL [place] # (Auto) (0-900) /uL Eos # (Auto) (0-450) /uL Baso # (Auto) (0-100) /uL PT (10.1-12.7) SECONDS INR (0.9-1.3) ABG pH (7.35-7.45) ABG pCO2 (35-45) mmHg ABG pO2 (80-100) mmHg ABG HCO3 (22-26) mmol/L ABG Total CO2 (21-31) mmol/L ABG O2 Saturation (95-100) % ABG Base Excess (-2-2) mmol/L FiO2 Sodium 142 (137-145) mmol/L Potassium 5.2 H (3.4-5.1) mmol/L Chloride 104 (98-107) mmol/L Carbon Dioxide 29 (22-32) mmol/L BUN 89 H (9-20) mg/dL Creatinine 3.10 H (0.66-1.25) mg/dL Estimated GFR 19.4 L (>60) mL/min BUN/Creatinine Ratio 28.7 H (6-22) Glucose 125 H (80-110) mg/dL Lactate 1.3 (0.7-2.1) mmol/L Calcium 8.2 L (8.4-10.2) mg/dL Magnesium (1.6-2.3) mg/dL Total Bilirubin 0.7 (0.2-1.3) mg/dL AST 18 (17-59) IU/L ALT 24 (21-72) IU/L Alkaline Phosphatase 47 (38-126) U/L Total Creatine Kinase 25 L (55-170) U/L CK-MB (CK-2) TNP CK-MB (CK-2) Rel Index TNP Troponin I < 0.012 (0.01-0.034) ng/mL B-Natriuretic Peptide (<100) Total Protein 6.5 (6.3-8.2) g/dL Albumin 3.8 (3.5-5.0) g/dL Globulin 2.7 (1.7-4.1) g/dL Albumin/Globulin Ratio 1.4 (1.0-2.8) Procalcitonin < 0.05 (<0.5) ng/mL Urine RBC (0-5/HPF) Urine WBC (0-5/HPF) Ur Squamous Epith Cells Urine Bacteria (None) Ur Culture Indicated? 02/11/19 02/11/19 02/11/19 Range/Units 18:39 19:42 21:26 WBC (4.5-11.0) X10^3/uL RBC (4.5-5.9) X10^6/uL Hgb (13.5-17.5) g/dL Hct (41-53) % MCV (80-100) fL MCH (26-34) PG MCHC (30-36) % RDW (11.6-14.8) % Plt Count (150-400) X10^3/uL Neut % (Auto) (50-75) % Lymph % (Auto) (25-40) % [place] % (Auto) (3-14) % Eos % (Auto) (2-4) % Baso % (Auto) (0-2) % Neut # (Auto) (8173-3362) /uL Lymph # (Auto) (2311-5606) /uL [place] # (Auto) (0-900) /uL Eos # (Auto) (0-450) /uL Baso # (Auto) (0-100) /uL PT (10.1-12.7) SECONDS INR (0.9-1.3) ABG pH 7.18 L* (7.35-7.45) ABG pCO2 80.0 H* (35-45) mmHg ABG pO2 49 L* (80-100) mmHg ABG HCO3 30 H (22-26) mmol/L ABG Total CO2 33 H (21-31) mmol/L ABG O2 Saturation 72 L* (95-100) % ABG Base Excess 2.0 (-2-2) mmol/L FiO2 21 Sodium (137-145) mmol/L Potassium (3.4-5.1) mmol/L Chloride (98-107) mmol/L Carbon Dioxide (22-32) mmol/L BUN (9-20) mg/dL Creatinine (0.66-1.25) mg/dL Estimated GFR (>60) mL/min BUN/Creatinine Ratio (6-22) Glucose (80-110) mg/dL Lactate (0.7-2.1) mmol/L Calcium (8.4-10.2) mg/dL Magnesium 2.5 H (1.6-2.3) mg/dL Total Bilirubin (0.2-1.3) mg/dL AST (17-59) IU/L ALT (21-72) IU/L Alkaline Phosphatase (38-126) U/L Total Creatine Kinase (55-170) U/L CK-MB (CK-2) CK-MB (CK-2) Rel Index Troponin I (0.01-0.034) ng/mL B-Natriuretic Peptide (<100) Total Protein (6.3-8.2) g/dL Albumin (3.5-5.0) g/dL Globulin (1.7-4.1) g/dL Albumin/Globulin Ratio (1.0-2.8) Procalcitonin (<0.5) ng/mL Urine RBC None seen (0-5/HPF) Urine WBC 0-1/hpf (0-5/HPF) Ur Squamous Epith Cells 0-1 /hpf Urine Bacteria None seen (None) Ur Culture Indicated? Cult not indicated Urine Dip Bedside Urine Glucose Negative Bedside Urine Bilirubin - Negative Bedside Urine Ketone - Negative Urine Specific [place] 1.020 Bedside Urine Occult Blood - Negative Bedside Urine pH 6.0 Bedside Urine Protein ++ 100 Bedside Urine Urobilinogen - Negative Bedside Urine Nitrite - Negative Bedside Urine Leukocytes - Negative Esterase Imaging Data Chest x-ray: Radiologist's impression: [address] [address] XRay Report Signed Patient: Neal Caal TMR#: [id number] : 6Acct:[id number] Age/Sex: 83 / MDate of Service: 02/11/19 Loc: ED Accession Number: [id number] Procedure: XR chest 1V Ordering Provider: Clarence Kearney PROCEDURE: XR CHEST 1V INDICATIONS: Tremors and weakness TECHNIQUE: One view of the chest was acquired. [facility]. FINDINGS: Surgical changes and devices: Right-sided cardiac pacer device is unchanged in position. Lungs and pleura: Stable appearance of diffuse, ill-defined hazy and ground glass opacities of the bilateral hemithoraces. No new focal consolidations. No substantial pleural effusion. No pneumothorax. Mediastinum: Cardiomediastinal contours are stable with prominence of the cardiac silhouette.. Bones and chest wall: No suspicious bony lesions. Overlying soft tissues appear unremarkable. IMPRESSION: Stable cardiopulmonary examination with persistent diffuse, ill- defined hazy groundglass opacities of the bilateral hemithoraces. Dictated by: John Walker M.D. on 02/11/2019 at 20:12 Approved by: John Walker M.D. on 02/11/2019 at 20:15 CT scan - head: Radiologist's impression: [address] [address] [address] Scan Report Signed Patient: Neal Caal TMR#: [id number] : 6Acct:[id number] Age/Sex: 83 / MDate of Service: 02/11/19 Loc: ED Accession Number: [id number] Procedure: CT head/brain wo con Ordering Provider: Clarence Kearney PROCEDURE: CT HEAD/BRAIN WO CON INDICATIONS: Tremors over the last few days TECHNIQUE: Noncontrast 4.5 mm thick angled axial sections acquired from the foramen magnum to the vertex, with coronal and sagittal reformats. For radiation dose reduction, the following was used: automated exposure control, adjustment of mA and/or kV according to patient size. COMPARISON: None. FINDINGS: Image quality: While beam hardening artifact. CSF spaces: Basal cisterns are patent. No extra-axial fluid collections. The ventricles are symmetric in size and shape. Brain: No intracranial bleeds or masses. There is cerebral volume loss for age, with resultant ventricular and sulcal prominence. There are periventricular and deep white matter chronic small vessel ischemic changes. There is intracranial internal carotid artery atherosclerosis. Skull and face: Calvarium and visualized facial bones appear intact, without suspicious lesions. Chronic appearing nasal bone fractures. Sinuses: There is complete opacification of the right maxillary sinus and scattered ethmoid sinuses. The mastoids are clear. IMPRESSION: CT head without acute intracranial abnormalities. Age-related senescent changes and sequela of chronic small vessel ischemic disease. Right maxillary and scattered ethmoid sinus disease. Dictated by: John Walker M.D. on 02/11/2019 at 18:49 Approved by: John Walker M.D. on 02/11/2019 at 18:51 ECG Data Interpretation: EKG shows paced rhythm no ST elevation or depression. No ectopy. Ventricular rate is 75. QRS duration was 66. QTC 426. MDM Narrative Medical decision making narrative: CT scan of the head was obtained was negative for any acute findings. Chest x-ray was obtained and shows stable cardiopulmonary presentation with ground-glass opacities to bilateral rigo thoracis no focal consolidation. CBC was obtained and will white count was unremarkable. H&H was unremarkable. Chem panel shows decreased GFR of 19.4 with elevated creatinine at 3.1 and BUN of 89. Potassium was 5.2 magnesium was 2.5 calcium was 8.2. Cardiac enzymes were obtained were unremarkable. BNP was elevated at 325. Family does not believe that he has a history of having kidney issues so probable acute kidney failure. A bg shows respiratory acidosis with a pH of 7.18 for pCO2 of 80. PO2 of 49 and H CO3 of 30. He is placed on BiPAP. Discussed case with Neurology at [facility] who states that most likely is the renal function and his uremia that is causing the myoclonus. He believes that once the kidney function is improved the myoclonus will be remedied. Due to possibility of a fluctuations in his renal function wanted patient to be transferred to a facility that has dialysis. [facility] was full so patient is sent to [facility]. Discussed case with Dr. Correa salt machine operator who accepted patie nt patient is sent to [facility] via [facility]. <Maricarmen Dejesus MD - Last Filed: 02/12/19 05:34> Lab Data Lab Results 02/11/19 02/11/19 02/11/19 Range/Units 17:00 17:45 18:39 WBC 9.8 (4.5-11.0) X10^3/uL RBC 5.10 (4.5-5.9) X10^6/uL Hgb 14.1 (13.5-17.5) g/dL Hct 45.1 (41-53) % MCV 88.4 (80-100) fL MCH 27.5 (26-34) PG MCHC 31.2 (30-36) % RDW 17.3 H (11.6-14.8) % Plt Count 134 L (150-400) X10^3/uL Neut % (Auto) 88.1 H (50-75) % Lymph % (Auto) 6.2 L (25-40) % [place] % (Auto) 5.4 (3-14) % Eos % (Auto) 0.0 L (2-4) % Baso % (Auto) 0.3 (0-2) % Neut # (Auto) 8700 H (6872-7056) /uL Lymph # (Auto) 600 L (0463-0238) /uL [place] # (Auto) 500 (0-900) /uL Eos # (Auto) 0 (0-450) /uL Baso # (Auto) 0 (0-100) /uL PT 56.8 H (10.1-12.7) SECONDS INR 4.7 H* (0.9-1.3) ABG pH (7.35-7.45) ABG pCO2 (35-45) mmHg ABG pO2 (80-100) mmHg ABG HCO3 (22-26) mmol/L ABG Total CO2 (21-31) mmol/L ABG O2 Saturation (95-100) % ABG Base Excess (-2-2) mmol/L FiO2 Sodium (137-145) mmol/L Potassium (3.4-5.1) mmol/L Chloride (98-107) mmol/L Carbon Dioxide (22-32) mmol/L BUN (9-20) mg/dL Creatinine (0.66-1.25) mg/dL Estimated GFR (>60) mL/min BUN/Creatinine Ratio (6-22) Glucose (80-110) mg/dL Lactate (0.7-2.1) mmol/L Calcium (8.4-10.2) mg/dL Magnesium (1.6-2.3) mg/dL Total Bilirubin (0.2-1.3) mg/dL AST (17-59) IU/L ALT (21-72) IU/L Alkaline Phosphatase (38-126) U/L Total Creatine Kinase (55-170) U/L CK-MB (CK-2) CK-MB (CK-2) Rel Index Troponin I (0.01-0.034) ng/mL B-Natriuretic Peptide 325 H (<100) Total Protein (6.3-8.2) g/dL Albumin (3.5-5.0) g/dL Globulin (1.7-4.1) g/dL Albumin/Globulin Ratio (1.0-2.8) Procalcitonin (<0.5) ng/mL Urine RBC (0-5/HPF) Urine WBC (0-5/HPF) Ur Squamous Epith Cells Urine Bacteria (None) Ur Culture Indicated? 02/11/19 02/11/19 02/11/19 Range/Units 18:39 18:39 18:39 WBC (4.5-11.0) X10^3/uL RBC (4.5-5.9) X10^6/uL Hgb (13.5-17.5) g/dL Hct (41-53) % MCV (80-100) fL MCH (26-34) PG MCHC (30-36) % RDW (11.6-14.8) % Plt Count (150-400) X10^3/uL Neut % (Auto) (50-75) % Lymph % (Auto) (25-40) % [place] % (Auto) (3-14) % Eos % (Auto) (2-4) % Baso % (Auto) (0-2) % Neut # (Auto) (2226-0057) /uL Lymph # (Auto) (5806-5898) /uL [place] # (Auto) (0-900) /uL Eos # (Auto) (0-450) /uL Baso # (Auto) (0-100) /uL PT (10.1-12.7) SECONDS INR (0.9-1.3) ABG pH (7.35-7.45) ABG pCO2 (35-45) mmHg ABG pO2 (80-100) mmHg ABG HCO3 (22-26) mmol/L ABG Total CO2 (21-31) mmol/L ABG O2 Saturation (95-100) % ABG Base Excess (-2-2) mmol/L FiO2 Sodium 142 (137-145) mmol/L Potassium 5.2 H (3.4-5.1) mmol/L Chloride 104 (98-107) mmol/L Carbon Dioxide 29 (22-32) mmol/L BUN 89 H (9-20) mg/dL Creatinine 3.10 H (0.66-1.25) mg/dL Estimated GFR 19.4 L (>60) mL/min BUN/Creatinine Ratio 28.7 H (6-22) Glucose 125 H (80-110) mg/dL Lactate 1.3 (0.7-2.1) mmol/L Calcium 8.2 L (8.4-10.2) mg/dL Magnesium (1.6-2.3) mg/dL Total Bilirubin 0.7 (0.2-1.3) mg/dL AST 18 (17-59) IU/L ALT 24 (21-72) IU/L Alkaline Phosphatase 47 (38-126) U/L Total Creatine Kinase 25 L (55-170) U/L CK-MB (CK-2) TNP CK-MB (CK-2) Rel Index TNP Troponin I < 0.012 (0.01-0.034) ng/mL B-Natriuretic Peptide (<100) Total Protein 6.5 (6.3-8.2) g/dL Albumin 3.8 (3.5-5.0) g/dL Globulin 2.7 (1.7-4.1) g/dL Albumin/Globulin Ratio 1.4 (1.0-2.8) Procalcitonin < 0.05 (<0.5) ng/mL Urine RBC (0-5/HPF) Urine WBC (0-5/HPF) Ur Squamous Epith Cells Urine Bacteria (None) Ur Culture Indicated? 02/11/19 02/11/19 02/11/19 Range/Units 18:39 19:42 21:26 WBC (4.5-11.0) X10^3/uL RBC (4.5-5.9) X10^6/uL Hgb (13.5-17.5) g/dL Hct (41-53) % MCV (80-100) fL MCH (26-34) PG MCHC (30-36) % RDW (11.6-14.8) % Plt Count (150-400) X10^3/uL Neut % (Auto) (50-75) % Lymph % (Auto) (25-40) % [place] % (Auto) (3-14) % Eos % (Auto) (2-4) % Baso % (Auto) (0-2) % Neut # (Auto) (7971-4729) /uL Lymph # (Auto) (8203-0543) /uL [place] # (Auto) (0-900) /uL Eos # (Auto) (0-450) /uL Baso # (Auto) (0-100) /uL PT (10.1-12.7) SECONDS INR (0.9-1.3) ABG pH 7.18 L* (7.35-7.45) ABG pCO2 80.0 H* (35-45) mmHg ABG pO2 49 L* (80-100) mmHg ABG HCO3 30 H (22-26) mmol/L ABG Total CO2 33 H (21-31) mmol/L ABG O2 Saturation 72 L* (95-100) % ABG Base Excess 2.0 (-2-2) mmol/L FiO2 21 Sodium (137-145) mmol/L Potassium (3.4-5.1) mmol/L Chloride (98-107) mmol/L Carbon Dioxide (22-32) mmol/L BUN (9-20) mg/dL Creatinine (0.66-1.25) mg/dL Estimated GFR (>60) mL/min BUN/Creatinine Ratio (6-22) Glucose (80-110) mg/dL Lactate (0.7-2.1) mmol/L Calcium (8.4-10.2) mg/dL Magnesium 2.5 H (1.6-2.3) mg/dL Total Bilirubin (0.2-1.3) mg/dL AST (17-59) IU/L ALT (21-72) IU/L Alkaline Phosphatase (38-126) U/L Total Creatine Kinase (55-170) U/L CK-MB (CK-2) CK-MB (CK-2) Rel Index Troponin I (0.01-0.034) ng/mL B-Natriuretic Peptide (<100) Total Protein (6.3-8.2) g/dL Albumin (3.5-5.0) g/dL Globulin (1.7-4.1) g/dL Albumin/Globulin Ratio (1.0-2.8) Procalcitonin (<0.5) ng/mL Urine RBC None seen (0-5/HPF) Urine WBC 0-1/hpf (0-5/HPF) Ur Squamous Epith Cells 0-1 /hpf Urine Bacteria None seen (None) Ur Culture Indicated? Cult not indicated Urine Dip Bedside Urine Glucose Negative Bedside Urine Bilirubin - Negative Bedside Urine Ketone - Negative Urine Specific [place] 1.020 Bedside Urine Occult Blood - Negative Bedside Urine pH 6.0 Bedside Urine Protein ++ 100 Bedside Urine Urobilinogen - Negative Bedside Urine Nitrite - Negative Bedside Urine Leukocytes - Negative Esterase Discharge Plan Departure Patient Disposition: [facility] Clinical Impression: Acute on chronic respiratory acidosis, Myoclonus Acute renal failure Qualifiers: Acute renal failure type: unspecified Qualified Code(s): N17.9 - Acute kidney failure, unspecified Discharge Date/Time: 02/11/19 23:23 Interventions: ED Discharge Assessment Last Done: 02/11/19 23:23 Prescriptions: No Action carvedilol [Coreg] 25 MG tablet 37.5 mg PO BID Qty: 0 RF: 0 clopidogrel [Plavix] 75 MG tablet 75 mg PO QAM Qty: 0 RF: 0 prednisone 20 mg tablet See Rx Instructions .ROUTE .COMPLEX RF: 0 warfarin 5 mg tablet 5 mg PO 5XW RF: 0 furosemide 20 mg tablet 40 mg PO DAILY RF: 0 cefuroxime axetil 500 mg tablet 500 mg PO BID RF: 0 albuterol sulfate [ProAir HFA] 90 mcg/actuation HFA aerosol inhaler 2 puff Inhalation Q4H PRN (Reason: Shortness Of Breath) RF: 0 alfuzosin 10 mg tablet extended release 24 hr 10 mg PO DAILY RF: 0 [place] 75 mg capsule 75 mg PO BID RF: 0 cetirizine 10 mg Tablet 10 mg PO DAILY PRN (Reason: Allergy Symptoms) RF: 0 warfarin 5 mg tablet 2.5 mg PO 2XW RF: 0 Referrals: Mat Rodriguez MD [Primary Care Provider] -
== END 2019-02-11 23:23 | disposition short-term general hospital (02) ==
PROVIDERS: Emergency Provider Nurse Practitioner Family; Family Provider Family Medicine; PCP Family Medicine
DX: E87.2 Acidosis (principal); N17.9 Acute kidney failure, unspecified; G25.3 Myoclonus
CPT/HCPCS: 36591; 36600; 70450; 71045; 80053; 81003; 81015; 82550; 82805; 83605; 83735; 83880; 84145; 84484; 85025; 85610; 93005; 94660; 99283; 99285

== ENCOUNTER 2019-02-21 06:42 | Inpatient (IN) | payer MEDICARE, OTHER, SELFPAY ==
[2019-02-11 22:24] VITALS: RESP 24; O2SAT 95
[2019-02-21] VITALS (15 sets, daily range): BP systolic 100–125; BP diastolic 57–104; PULSE 55–113; RESP 14–22; TEMP 36.4–37.7; O2SAT 86–100; BMI 27.6
--- NOTE | 2019-02-21 07:02 | DI.CT.S_ITS ---
PROCEDURE: CT HEAD/BRAIN WO CON INDICATIONS: fall on coumdin TECHNIQUE: Noncontrast 4.5 mm thick angled axial sections acquired from the foramen magnum to the vertex, with coronal and sagittal reformats. For radiation dose reduction, the following was used: automated exposure control, adjustment of mA and/or kV according to patient size. COMPARISON: [facility], CT, CT HEAD/BRAIN WO CON, 02/11/2019, 18:19. FINDINGS: Image quality: Excellent. CSF spaces: Basal cisterns are patent. No extra-axial fluid collections. The ventricles are symmetric in size and shape. Brain: No intracranial bleeds or masses. There is cerebral volume loss for age, with resultant ventricular and sulcal prominence. There are periventricular and deep white matter chronic small vessel ischemic changes. There is intracranial internal carotid artery atherosclerosis. Skull and face: Calvarium and visualized facial bones appear intact, without suspicious lesions. 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 IMPRESSION: #1. No CT evidence of acute pathology. #2. Atrophy and moderate periventricular white matter microangiopathic changes not significantly changed from previous study. #3. Chronic appearing right-sided sinusitis not significant changed from prior study. No significant discrepancies. Dictated by: Humberto Johnson M.D. on 02/21/2019 at 8:18 Approved by: Humberto Johnson M.D. on 02/21/2019 at 8:22
--- NOTE | 2019-02-21 07:06 | ED.WEAKNESS ---
HPI - Weakness General Chief complaint: Weakness Stated complaint: GLF Time Seen by Provider: 02/21/19 06:51 Source: EMS and old records reviewed Mode of arrival: EMS Limitations: no limitations History of Present Illness HPI Narrative: The patient is an 83-year-old male who presents after a ground level fall. He says he is supposed to use a walker as but he slipped and fell hitting his head no loss of consciousness he does have some bruising and contusion over his left eye. He has no neck pain. he was actually seen and evaluated here on 02/11/2019 and transferred to [facility]. At that time he was found have respiratory acidosis from COPD and CHF. He also has a pacemaker for atrial fibrillation and is currently on Coumadin. states that he slept most of the day yesterday. She heard him fall did not lose consciousness. She was able to changes sure and brief before is able help with both of. She is also an extremely poor historian unclear what happened at [facility]. Related Data Home Medications Medication Instructions Recorded Confirmed carvedilol [Coreg] 37.5 mg PO BID #0 06/24/13 02/21/19 clopidogrel [Plavix] 75 mg PO QAM #0 06/24/13 02/21/19 albuterol sulfate [ProAir HFA] 2 puff INHALATION Q4H PRN 02/11/19 02/21/19 alfuzosin 10 mg PO DAILY 02/11/19 02/21/19 cetirizine 10 mg PO DAILY PRN 02/11/19 02/21/19 furosemide 40 mg PO DAILY 02/11/19 02/21/19 pregabalin [Lyrica] 75 mg PO BID 02/11/19 02/21/19 warfarin 2.5 mg PO 2XW 02/11/19 02/21/19 warfarin 5 mg PO 5XW 02/11/19 02/21/19 Allergies Allergy/AdvReac Type Severity Reaction Status Date / Time aspirin Allergy Verified 02/21/19 07:06 Review of Systems Review of Systems ROS Unobtainable: All systems reviewed & are unremarkable except as noted in HPI and below Constitutional Denies chills, Denies fever(s), Reports frequent falls, Denies lethargy and Denies weakness Eyes Reports as per HPI ENT Ears, Nose, Mouth, and Throat: Denies change in voice, Denies neck pain and Denies sore throat Cardiovascular Denies chest pain, Reports irregular heart rhythm (Atrial fibrillation with pacemaker), Denies lightheadedness, Denies palpitations, Denies dyspnea, Denies dyspnea on exertion and Denies orthopnea Respiratory Denies cough, Denies dyspnea, Denies dyspnea on exertion and Denies wheezing Gastrointestinal Gastrointestinal: Denies abdominal pain, Denies change in bowel habits, Denies diarrhea, Denies nausea and Denies vomiting Musculoskeletal Denies neck pain Integumentary/Breasts Denies pruritus, Denies erythema, Denies rash and Denies wounds Neurologic Reports frequent falls and Denies weakness Endocrine Denies palpitations Allergic/Immunologic Denies wheezing [facility] Medical History Atrial fibrillation (Acute) CHF (congestive heart failure) (Acute) COPD (chronic obstructive pulmonary disease) (Acute) Social History Smoking Status: Unknown if ever smoked Social History Smoking Status: Unknown if ever smoked Exam Initial Vital Signs Initial Vital Signs: Vital Signs Temperature 99.8 F H 02/21/19 06:57 Pulse Rate 84 02/21/19 06:57 Respiratory Rate 22 02/21/19 06:57 Blood Pressure 125/71 02/21/19 06:57 Pulse Oximetry 90 L 02/21/19 06:57 GENERAL: Alert elderly male no acute distress awake alert oriented HEENT: Head atraumatic,EOMI, pupils reactive, left eye contusion able to open eye completely he has left conjunctiva hematoma face symmetric, neck is full range of motion nontender no vertebral tenderness CARDIOVASCULAR: Regular rate and rhythm without murmurs, rubs or gallops. RESPIRATORY: coarse breath sounds bilateral ABDOMEN: Soft, nontender. Normoactive bowel sounds all 4 quadrants. No guarding or rebound. EXTREMITIES: Normal range of motion, no clubbing. +2 pitting edema Neurovascularly intact NEUROLOGICAL: Alert and oriented x4.Normal gait and speech. Cranial nerves II through XII grossly intact. 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 Course Orders Ordered: ED Orders 02/21/19 07:02 CT head/brain wo con Stat 02/21/19 07:03 Consult to Respiratory Therapy Evaluate & Treat EKG-12 Lead Stat 02/21/19 07:05 XR chest 1V Stat 02/21/19 07:30 B Type Natriuretic Peptide Stat Complete Blood Count AUTO DIFF Stat Comprehensive Metabolic Panel Stat Magnesium Stat Partial Thromboplastin Time Stat Prothrombin Time INR Stat Troponin & CK Cardiac Panel Stat 02/21/19 09:41 Arterial Blood Gas Stat 02/21/19 10:26 Influenza A and B by PCR Rapid Stat 02/21/19 11:00 Urine Microscopic Stat 02/21/19 11:51 Education, smoking cessation ONGOING 02/21/19 11:55 Consult to Discharge Planning Routine 02/22/19 B Type Natriuretic Peptide Urgent Basic Metabolic Panel Urgent Complete Blood Count AUTO DIFF Urgent Prothrombin Time INR Urgent Albuterol (Ventolin Hfa) 2 puff INH Q4H PRN PRN Reason: Shortness Of Breath Carvedilol (Coreg) 37.5 mg PO BID ANDRES Clopidogrel Bisulfate (Plavix) 75 mg PO DAILY ANDRES Furosemide (Lasix) 40 mg IV Q12H ANDRES Warfarin Sodium (Coumadin) 5 mg PO 5XW ANDRES Discontinued Medications Albuterol/Ipratropium (Duoneb) 3 ml INH NOW ONE Stop: 02/21/19 07:03 Last Admin: 02/21/19 07:22 Dose: 3 ml Furosemide (Lasix) 40 mg IV NOW ONE Stop: 02/21/19 07:52 Last Admin: 02/21/19 08:03 Dose: 40 mg Vital Signs - 8 hr 02/21/19 06:57 02/21/19 07:35 02/21/19 09:30 Temperature 99.8 F H Pulse Rate 84 55 L 63 Respiratory Rate 22 20 22 Blood Pressure 125/71 Blood Pressure [Right Arm] 119/59 L 113/65 Pulse Oximetry 90 L 96 96 02/21/19 11:00 02/21/19 11:30 Temperature Pulse Rate 83 113 H Respiratory Rate 21 20 Blood Pressure Blood Pressure [Right Arm] 104/60 125/104 H Pulse Oximetry 100 100 MDM - Weakness Lab Data Attestation: I reviewed the patient's lab results. Result diagrams: 02/21/19 07:30 02/21/19 07:30 Lab Results 02/21/19 02/21/19 02/21/19 Range/Units 07:30 07:30 07:30 WBC 11.9 H (4.5-11.0) X10^3/uL RBC 4.68 (4.5-5.9) X10^6/uL Hgb 13.1 L (13.5-17.5) g/dL Hct 40.4 L (41-53) % MCV 86.2 (80-100) fL MCH 27.9 (26-34) PG MCHC 32.4 (30-36) % RDW 16.6 H (11.6-14.8) % Plt Count 101 L (150-400) X10^3/uL Neut % (Auto) 82.0 H (50-75) % Lymph % (Auto) 4.1 L (25-40) % [place] % (Auto) 12.2 (3-14) % Eos % (Auto) 1.4 L (2-4) % Baso % (Auto) 0.3 (0-2) % Neut # (Auto) 9700 H (8626-3550) /uL Lymph # (Auto) 500 L (2338-2592) /uL [place] # (Auto) 1400 H (0-900) /uL Eos # (Auto) 200 (0-450) /uL Baso # (Auto) 0 (0-100) /uL PT 28.4 H D (10.1-12.7) SECONDS INR 2.4 H (0.9-1.3) APTT 34 (26.4-36.2) SECONDS ABG pH (7.35-7.45) ABG pCO2 (35-45) mmHg ABG pO2 (80-100) mmHg ABG HCO3 (22-26) mmol/L ABG Total CO2 (21-31) mmol/L ABG O2 Saturation (95-100) % ABG Base Excess (-2-2) mmol/L FiO2 Sodium (137-145) mmol/L Potassium (3.4-5.1) mmol/L Chloride (98-107) mmol/L Carbon Dioxide (22-32) mmol/L BUN (9-20) mg/dL Creatinine (0.66-1.25) mg/dL Estimated GFR (>60) mL/min BUN/Creatinine Ratio (6-22) Glucose (80-110) mg/dL Calcium (8.4-10.2) mg/dL Magnesium 2.0 (1.6-2.3) mg/dL Total Bilirubin (0.2-1.3) mg/dL AST (17-59) IU/L ALT (21-72) IU/L Alkaline Phosphatase (38-126) U/L Total Creatine Kinase 91 (55-170) U/L CK-MB (CK-2) TNP CK-MB (CK-2) Rel Index TNP Troponin I 0.050 H (0.01-0.034) ng/mL B-Natriuretic Peptide 535 H (<100) Total Protein (6.3-8.2) g/dL Albumin (3.5-5.0) g/dL Globulin (1.7-4.1) g/dL Albumin/Globulin Ratio (1.0-2.8) Urine RBC (0-5/HPF) Urine WBC (0-5/HPF) Urine Bacteria (None) Ur Culture Indicated? Influenza A & B (PCR) (Negative) 02/21/19 02/21/19 02/21/19 Range/Units 07:30 09:41 10:26 WBC (4.5-11.0) X10^3/uL RBC (4.5-5.9) X10^6/uL Hgb (13.5-17.5) g/dL Hct (41-53) % MCV (80-100) fL MCH (26-34) PG MCHC (30-36) % RDW (11.6-14.8) % Plt Count (150-400) X10^3/uL Neut % (Auto) (50-75) % Lymph % (Auto) (25-40) % [place] % (Auto) (3-14) % Eos % (Auto) (2-4) % Baso % (Auto) (0-2) % Neut # (Auto) (5968-0651) /uL Lymph # (Auto) (9488-9566) /uL [place] # (Auto) (0-900) /uL Eos # (Auto) (0-450) /uL Baso # (Auto) (0-100) /uL PT (10.1-12.7) SECONDS INR (0.9-1.3) APTT (26.4-36.2) SECONDS ABG pH 7.35 (7.35-7.45) ABG pCO2 57.5 H (35-45) mmHg ABG pO2 57 L (80-100) mmHg ABG HCO3 7 L (22-26) mmol/L ABG Total CO2 32 H (21-31) mmol/L ABG O2 Saturation 87 L (95-100) % ABG Base Excess 34.0 H (-2-2) mmol/L FiO2 24 Sodium 140 (137-145) mmol/L Potassium 4.1 (3.4-5.1) mmol/L Chloride 99 (98-107) mmol/L Carbon Dioxide 33 H (22-32) mmol/L BUN 74 H (9-20) mg/dL Creatinine 2.60 H (0.66-1.25) mg/dL Estimated GFR 23.7 L (>60) mL/min BUN/Creatinine Ratio 28.5 H (6-22) Glucose 112 H (80-110) mg/dL Calcium 7.8 L (8.4-10.2) mg/dL Magnesium (1.6-2.3) mg/dL Total Bilirubin 2.5 H (0.2-1.3) mg/dL AST 20 (17-59) IU/L ALT 31 (21-72) IU/L Alkaline Phosphatase 57 (38-126) U/L Total Creatine Kinase (55-170) U/L CK-MB (CK-2) CK-MB (CK-2) Rel Index Troponin I (0.01-0.034) ng/mL B-Natriuretic Peptide (<100) Total Protein 5.9 L (6.3-8.2) g/dL Albumin 3.2 L (3.5-5.0) g/dL Globulin 2.7 (1.7-4.1) g/dL Albumin/Globulin Ratio 1.2 (1.0-2.8) Urine RBC (0-5/HPF) Urine WBC (0-5/HPF) Urine Bacteria (None) Ur Culture Indicated? Influenza A & B (PCR) Negative (Negative) 02/21/19 Range/Units 11:00 WBC (4.5-11.0) X10^3/uL RBC (4.5-5.9) X10^6/uL Hgb (13.5-17.5) g/dL Hct (41-53) % MCV (80-100) fL MCH (26-34) PG MCHC (30-36) % RDW (11.6-14.8) % Plt Count (150-400) X10^3/uL Neut % (Auto) (50-75) % Lymph % (Auto) (25-40) % [place] % (Auto) (3-14) % Eos % (Auto) (2-4) % Baso % (Auto) (0-2) % Neut # (Auto) (9524-7327) /uL Lymph # (Auto) (7841-2860) /uL [place] # (Auto) (0-900) /uL Eos # (Auto) (0-450) /uL Baso # (Auto) (0-100) /uL PT (10.1-12.7) SECONDS INR (0.9-1.3) APTT (26.4-36.2) SECONDS ABG pH (7.35-7.45) ABG pCO2 (35-45) mmHg ABG pO2 (80-100) mmHg ABG HCO3 (22-26) mmol/L ABG Total CO2 (21-31) mmol/L ABG O2 Saturation (95-100) % ABG Base Excess (-2-2) mmol/L FiO2 Sodium (137-145) mmol/L Potassium (3.4-5.1) mmol/L Chloride (98-107) mmol/L Carbon Dioxide (22-32) mmol/L BUN (9-20) mg/dL Creatinine (0.66-1.25) mg/dL Estimated GFR (>60) mL/min BUN/Creatinine Ratio (6-22) Glucose (80-110) mg/dL Calcium (8.4-10.2) mg/dL Magnesium (1.6-2.3) mg/dL Total Bilirubin (0.2-1.3) mg/dL AST (17-59) IU/L ALT (21-72) IU/L Alkaline Phosphatase (38-126) U/L Total Creatine Kinase (55-170) U/L CK-MB (CK-2) CK-MB (CK-2) Rel Index Troponin I (0.01-0.034) ng/mL B-Natriuretic Peptide (<100) Total Protein (6.3-8.2) g/dL Albumin (3.5-5.0) g/dL Globulin (1.7-4.1) g/dL Albumin/Globulin Ratio (1.0-2.8) Urine RBC 0-1/hpf (0-5/HPF) Urine WBC 0-1/hpf (0-5/HPF) Urine Bacteria None seen (None) Ur Culture Indicated? Cult not indicated Influenza A & B (PCR) (Negative) Urine Dip Bedside Urine Glucose Negative Bedside Urine Bilirubin - Negative Bedside Urine Ketone - Negative Urine Specific [place] 1.015 Bedside Urine Occult Blood +/- Bedside Urine pH 7.0 Bedside Urine Protein +/- 15 Bedside Urine Urobilinogen +/- 1mg Bedside Urine Nitrite - Negative Bedside Urine Leukocytes - Negative Esterase Imaging Data CT scan - head: Radiologist's impression: PROCEDURE: CT HEAD/BRAIN WO CON INDICATIONS: fall on coumdin TECHNIQUE: Noncontrast 4.5 mm thick angled axial sections acquired from the foramen magnum to the vertex, with coronal and sagittal reformats. For radiation dose reduction, the following was used: automated exposure control, adjustment of mA and/or kV according to patient size. COMPARISON: [facility], CT, CT HEAD/BRAIN WO CON, 02/11/2019, 18:19. FINDINGS: Image quality: Excellent. CSF spaces: Basal cisterns are patent. No extra-axial fluid collections. The ventricles are symmetric in size and shape. Brain: No intracranial bleeds or masses. There is cerebral volume loss for age, with resultant ventricular and sulcal prominence. There are periventricular and deep white matter chronic small vessel ischemic changes. There is intracranial internal carotid artery atherosclerosis. Skull and face: Calvarium and visualized facial bones appear intact, without suspicious lesions. 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 IMPRESSION: #1. No CT evidence of acute pathology. #2. Atrophy and moderate periventricular white matter microangiopathic changes not significantly changed from previous study. #3. Chronic appearing right-sided sinusitis not significant changed from prior study. No significant discrepancies. Dictated by: Humberto Johnson M.D. on 02/21/2019 at 8:18 Approved by: Humberto Johnson M.D. on 02/21/2019 at 8:22 Chest x-ray: Radiologist's impression: PROCEDURE: XR CHEST 1V INDICATIONS: fall sob TECHNIQUE: One view of the chest was acquired. COMPARISON: [facility], , XR CHEST 1V, 02/11/2019, 18:03. FINDINGS: Surgical changes and devices: Right chest wall cardiac device position is unchanged. Lungs and pleura: Mild pulmonary vascular congestion and mild pulmonary edema is seen. No pleural effusions or pneumothorax. Mediastinum: Mediastinal contours appear normal. Heart size is enlarged. Bones and chest wall: No suspicious bony lesions. Overlying soft tissues appear unremarkable. IMPRESSION: Cardiomegaly and congestion. No definite focal infiltrate. No gross pneumothorax. Dictated by: Humberto Johnson M.D. on 02/21/2019 at 10:19 ECG Data Attestation: I personally reviewed and interpreted this ECG as follows: Prior ECG tracings: available for review Interpretation: Paced rhythm 75 similar previous EKG no ST changes MDM Narrative Medical decision making narrative: Patient is sleeping. He is requiring oxygen x-ray looks significantly worsen lung sounds are quite course he has peripheral edema BNP is elevated from last time up to 535. This appears to be acute CHF. Still waiting for records from [facility]. Patient urinated with 40 of Lasix. ABG looks better than previous ABG at this time I do not think he needs BiPAP Dr. Mckenzie accepts patient. in ED to see patient. Discharge Plan Departure Patient Disposition: Admitted As Inpatient Clinical Impression: CHF (congestive heart failure) Qualifiers: Heart failure type: systolic Heart failure chronicity: acute on chronic Qualified Code(s): I50.23 - Acute on chronic systolic (congestive) heart failure Admit Date/Time: 02/21/19 11:07 Admit Provider: Landon Mckenzie
--- NOTE | 2019-02-21 07:10 | ED_ITS ---
HPI - Weakness General Chief complaint: Weakness Stated complaint: GLF Time Seen by Provider: 02/21/19 06:51 Source: EMS and old records reviewed Mode of arrival: EMS Limitations: no limitations History of Present Illness HPI Narrative: The patient is an 83-year-old male who presents after a ground level fall. He says he is supposed to use a walker as but he slipped and fell hitting his head no loss of consciousness he does have some bruising and contusion over his left eye. He has no neck pain. he was actually seen and evaluated here on 02/11/2019 and transferred to [facility]. At that time he was found have respiratory acidosis from COPD and CHF. He also has a pacemaker for atrial fibrillation and is currently on Coumadin. states that he slept most of the day yesterday. She heard him fall did not lose consciousness. She was able to changes sure and brief before is able help with both of. She is also an extremely poor historian unclear what happened at [facility]. Related Data Home Medications Medication Instructions Recorded Confirmed carvedilol [Coreg] 37.5 mg PO BID #0 06/24/13 02/21/19 clopidogrel [Plavix] 75 mg PO QAM #0 06/24/13 02/21/19 albuterol sulfate [ProAir HFA] 2 puff INHALATION Q4H PRN 02/11/19 02/21/19 alfuzosin 10 mg PO DAILY 02/11/19 02/21/19 cetirizine 10 mg PO DAILY PRN 02/11/19 02/21/19 furosemide 40 mg PO DAILY 02/11/19 02/21/19 pregabalin [Lyrica] 75 mg PO BID 02/11/19 02/21/19 warfarin 2.5 mg PO 2XW 02/11/19 02/21/19 warfarin 5 mg PO 5XW 02/11/19 02/21/19 Allergies Allergy/AdvReac Type Severity Reaction Status Date / Time aspirin Allergy Verified 02/21/19 07:06 Review of Systems Review of Systems ROS Unobtainable: All systems reviewed & are unremarkable except as noted in HPI and below Constitutional Denies chills, Denies fever(s), Reports frequent falls, Denies lethargy and Denies weakness Eyes Reports as per HPI ENT Ears, Nose, Mouth, and Throat: Denies change in voice, Denies neck pain and Denies sore throat Cardiovascular Denies chest pain, Reports irregular heart rhythm (Atrial fibrillation with pacemaker), Denies lightheadedness, Denies palpitations, Denies dyspnea, Denies dyspnea on exertion and Denies orthopnea Respiratory Denies cough, Denies dyspnea, Denies dyspnea on exertion and Denies wheezing Gastrointestinal Gastrointestinal: Denies abdominal pain, Denies change in bowel habits, Denies diarrhea, Denies nausea and Denies vomiting Musculoskeletal Denies neck pain Integumentary/Breasts Denies pruritus, Denies erythema, Denies rash and Denies wounds Neurologic Reports frequent falls and Denies weakness Endocrine Denies palpitations Allergic/Immunologic Denies wheezing [facility] Medical History Atrial fibrillation (Acute) CHF (congestive heart failure) (Acute) COPD (chronic obstructive pulmonary disease) (Acute) Social History Smoking Status: Unknown if ever smoked Social History Smoking Status: Unknown if ever smoked Exam Initial Vital Signs Initial Vital Signs: Vital Signs Temperature 99.8 F H 02/21/19 06:57 Pulse Rate 84 02/21/19 06:57 Respiratory Rate 22 02/21/19 06:57 Blood Pressure 125/71 02/21/19 06:57 Pulse Oximetry 90 L 02/21/19 06:57 GENERAL: Alert elderly male no acute distress awake alert oriented HEENT: Head atraumatic,EOMI, pupils reactive, left eye contusion able to open eye completely he has left conjunctiva hematoma face symmetric, neck is full ra nge of motion nontender no vertebral tenderness CARDIOVASCULAR: Regular rate and rhythm without murmurs, rubs or gallops. RESPIRATORY: coarse breath sounds bilateral ABDOMEN: Soft, nontender. Normoactive bowel sounds all 4 quadrants. No guarding or rebound. EXTREMITIES: Normal range of motion, no clubbing. +2 pitting edema Neurovascularly intact NEUROLOGICAL: Alert and oriented x4.Normal gait and speech. Cranial nerves II through XII grossly intact. 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 Course Orders Ordered: ED Orders 02/21/19 07:02 CT head/brain wo con Stat 02/21/19 07:03 Consult to Respiratory Therapy Evaluate & Treat EKG-12 Lead Stat 02/21/19 07:05 XR chest 1V Stat 02/21/19 07:30 B Type Natriuretic Peptide Stat Complete Blood Count AUTO DIFF Stat Comprehensive Metabolic Panel Stat Magnesium Stat Partial Thromboplastin Time Stat Prothrombin Time INR Stat Troponin & CK Cardiac Panel Stat 02/21/19 09:41 Arterial Blood Gas Stat 02/21/19 10:26 Influenza A and B by PCR Rapid Stat 02/21/19 11:00 Urine Microscopic Stat 02/21/19 11:51 Education, smoking cessation ONGOING 02/21/19 11:55 Consult to Discharge Planning Routine 02/22/19 B Type Natriuretic Peptide Urgent Basic Metabolic Panel Urgent Complete Blood Count AUTO DIFF Urgent Prothrombin Time INR Urgent Albuterol (Ventolin Hfa) 2 puff INH Q4H PRN PRN Reason: Shortness Of Breath Carvedilol (Coreg) 37.5 mg PO BID ANDRES Clopidogrel Bisulfate (Plavix) 75 mg PO DAILY ANDRES Furosemide (Lasix) 40 mg IV Q12H ANDRES Warfarin Sodium (Coumadin) 5 mg PO 5XW ANDRES Discontinued Medications Albuterol/Ipratropium (Duoneb) 3 ml INH NOW ONE Stop: 02/21/19 07:03 Last Admin: 02/21/19 07:22 Dose: 3 ml Furosemide (Lasix) 40 mg IV NOW ONE Stop: 02/21/19 07:52 Last Admin: 02/21/19 08:03 Dose: 40 mg Vital Signs - 8 hr 02/21/19 06:57 02/21/19 07:35 02/21/19 09:30 Temperature 99.8 F H Pulse Rate 84 55 L 63 Respiratory Rate 22 20 22 Blood Pressure 125/71 Blood Pressure [Right Arm] 119/59 L 113/65 Pulse Oximetry 90 L 96 96 02/21/19 11:00 02/21/19 11:30 Temperature Pulse Rate 83 113 H Respiratory Rate 21 20 Blood Pressure Blood Pressure [Right Arm] 104/60 125/104 H Pulse Oximetry 100 100 MDM - Weakness Lab Data Attestation: I reviewed the patient's lab results. Result diagrams: 02/21/19 07:30 02/21/19 07:30 Lab Results 02/21/19 02/21/19 02/21/19 Range/Units 07:30 07:30 07:30 WBC 11.9 H (4.5-11.0) X10^3/uL RBC 4.68 (4.5-5.9) X10^6/uL Hgb 13.1 L (13.5-17.5) g/dL Hct 40.4 L (41-53) % MCV 86.2 (80-100) fL MCH 27.9 (26-34) PG MCHC 32.4 (30-36) % RDW 16.6 H (11.6-14.8) % Plt Count 101 L (150-400) X10^3/uL Neut % (Auto) 82.0 H (50-75) % Lymph % (Auto) 4.1 L (25-40) % [place] % (Auto) 12.2 (3-14) % Eos % (Auto) 1.4 L (2-4) % Baso % (Auto) 0.3 (0-2) % Neut # (Auto) 9700 H (9864-8898) /uL Lymph # (Auto) 500 L (0345-4298) /uL [place] # (Auto) 1400 H (0-900) /uL Eos # (Auto) 200 (0-450) /uL Baso # (Auto) 0 (0-100) /uL PT 28.4 H D (10.1-12.7) SECONDS INR 2.4 H (0.9-1.3) APTT 34 (26.4-36.2) SECONDS ABG pH (7.35-7.45) ABG pCO2 (35-45) mmHg ABG pO2 (80-100) mmHg ABG HCO3 (22-26) mmol/L ABG Total CO2 (21-31) mmol/L ABG O2 Saturation (95-100) % ABG Base Excess (-2-2) mmol/L FiO2 Sodium (137-145) mmol/L Potassium (3.4-5.1) mmol/L Chloride (98-107) mmol/L Carbon Dioxide (22-32) mmol/L BUN (9-20) mg/dL Creatinine (0.66-1.25) mg/dL Estimated GFR (>60) mL/min BUN/Creatinine Ratio (6-22) Glucose (80-110) mg/dL Calcium (8.4-10.2) mg/dL Magnesium 2.0 (1.6-2.3) mg/dL Total Bilirubin (0.2-1.3) mg/dL AST (17-59) IU/L ALT (21-72) IU/L Alkaline Phosphatase (38-126) U/L Total Creatine Kinase 91 (55-170) U/L CK-MB (CK-2) TNP CK-MB (CK-2) Rel Index TNP Troponin I 0.050 H (0.01-0.034) ng/mL B-Natriuretic Peptide 535 H (<100) Total Protein (6.3-8.2) g/dL Albumin (3.5-5.0) g/dL Globulin (1.7-4.1) g/dL Albumin/Globulin Ratio (1.0-2.8) Urine RBC (0-5/HPF) Urine WBC (0-5/HPF) Urine Bacteria (None) Ur Culture Indicated? Influenza A & B (PCR) (Negative) 02/21/19 02/21/19 02/21/19 Range/Units 07:30 09:41 10:26 WBC (4.5-11.0) X10^3/uL RBC (4.5-5.9) X10^6/uL Hgb (13.5-17.5) g/dL Hct (41-53) % MCV (80-100) fL MCH (26-34) PG MCHC (30-36) % RDW (11.6-14.8) % Plt Count (150-400) X10^3/uL Neut % (Auto) (50-75) % Lymph % (Auto) (25-40) % [place] % (Auto) (3-14) % Eos % (Auto) (2-4) % Baso % (Auto) (0-2) % Neut # (Auto) (5993-8821) /uL Lymph # (Auto) (7174-8383) /uL [place] # (Auto) (0-900) /uL Eos # (Auto) (0-450) /uL Baso # (Auto) (0-100) /uL PT (10.1-12.7) SECONDS INR (0.9-1.3) APTT (26.4-36.2) SECONDS ABG pH 7.35 (7.35-7.45) ABG pCO2 57.5 H (35-45) mmHg ABG pO2 57 L (80-100) mmHg ABG HCO3 7 L (22-26) mmol/L ABG Total CO2 32 H (21-31) mmol/L ABG O2 Saturation 87 L (95-100) % ABG Base Excess 34.0 H (-2-2) mmol/L FiO2 24 Sodium 140 (137-145) mmol/L Potassium 4.1 (3.4-5.1) mmol/L Chloride 99 (98-107) mmol/L Carbon Dioxide 33 H (22-32) mmol/L BUN 74 H (9-20) mg/dL Creatinine 2.60 H (0.66-1.25) mg/dL Estimated GFR 23.7 L (>60) mL/min BUN/Creatinine Ratio 28.5 H (6-22) Glucose 112 H (80-110) mg/dL Calcium 7.8 L (8.4-10.2) mg/dL Magnesium (1.6-2.3) mg/dL Total Bilirubin 2.5 H (0.2-1.3) mg/dL AST 20 (17-59) IU/L ALT 31 (21-72) IU/L Alkaline Phosphatase 57 (38-126) U/L Total Creatine Kinase (55-170) U/L CK-MB (CK-2) CK-MB (CK-2) Rel Index Troponin I (0.01-0.034) ng/mL B-Natriuretic Peptide (<100) Total Protein 5.9 L (6.3-8.2) g/dL Albumin 3.2 L (3.5-5.0) g/dL Globulin 2.7 (1.7-4.1) g/dL Albumin/Globulin Ratio 1.2 (1.0-2.8) Urine RBC (0-5/HPF) Urine WBC (0-5/HPF) Urine Bacteria (None) Ur Culture Indicated? Influenza A & B (PCR) Negative (Negative) 02/21/19 Range/Units 11:00 WBC (4.5-11.0) X10^3/uL RBC (4.5-5.9) X10^6/uL Hgb (13.5-17.5) g/dL Hct (41-53) % MCV (80-100) fL MCH (26-34) PG MCHC (30-36) % RDW (11.6-14.8) % Plt Count (150-400) X10^3/uL Neut % (Auto) (50-75) % Lymph % (Auto) (25-40) % [place] % (Auto) (3-14) % Eos % (Auto) (2-4) % Baso % (Auto) (0-2) % Neut # (Auto) (4490-6664) /uL Lymph # (Auto) (4461-3970) /uL [place] # (Auto) (0-900) /uL Eos # (Auto) (0-450) /uL Baso # (Auto) (0-100) /uL PT (10.1-12.7) SECONDS INR (0.9-1.3) APTT (26.4-36.2) SECONDS ABG pH (7.35-7.45) ABG pCO2 (35-45) mmHg ABG pO2 (80-100) mmHg ABG HCO3 (22-26) mmol/L ABG Total CO2 (21-31) mmol/L ABG O2 Saturation (95-100) % ABG Base Excess (-2-2) mmol/L FiO2 Sodium (137-145) mmol/L Potassium (3.4-5.1) mmol/L Chloride (98-107) mmol/L Carbon Dioxide (22-32) mmol/L BUN (9-20) mg/dL Creatinine (0.66-1.25) mg/dL Estimated GFR (>60) mL/min BUN/Creatinine Ratio (6-22) Glucose (80-110) mg/dL Calcium (8.4-10.2) mg/dL Magnesium (1.6-2.3) mg/dL Total Bilirubin (0.2-1.3) mg/dL AST (17-59) IU/L ALT (21-72) IU/L Alkaline Phosphatase (38-126) U/L Total Creatine Kinase (55-170) U/L CK-MB (CK-2) CK-MB (CK-2) Rel Index Troponin I (0.01-0.034) ng/mL B-Natriuretic Peptide (<100) Total Protein (6.3-8.2) g/dL Albumin (3.5-5.0) g/dL Globulin (1.7-4.1) g/dL Albumin/Globulin Ratio (1.0-2.8) Urine RBC 0-1/hpf (0-5/HPF) Urine WBC 0-1/hpf (0-5/HPF) Urine Bacteria None seen (None) Ur Culture Indicated? Cult not indicated Influenza A & B (PCR) (Negative) Urine Dip Bedside Urine Glucose Negative Bedside Urine Bilirubin - Negative Bedside Urine Ketone - Negative Urine Specific [place] 1.015 Bedside Urine Occult Blood +/- Bedside Urine pH 7.0 Bedside Urine Protein +/- 15 Bedside Urine Urobilinogen +/- 1mg Bedside Urine Nitrite - Negative Bedside Urine Leukocytes - Negative Esterase Imaging Data CT scan - head: Radiologist's impression: PROCEDURE: CT HEAD/BRAIN WO CON INDICATIONS: fall on coumdin TECHNIQUE: Noncontrast 4.5 mm thick angled axial sections acquired from the foramen magnum to the vertex, with coronal and sagittal reformats. For radiation dose reduction, the following was used: automated exposure control, adjustment of mA and/or kV according to patient size. COMPARISON: [facility], CT, CT HEAD/BRAIN WO CON, 02/11/2019, 18:19. FINDINGS: Image quality: Excellent. CSF spaces: Basal cisterns are patent. No extra-axial fluid collections. The ventricles are symmetric in size and shape. Brain: No intracranial bleeds or masses. There is cerebral volume loss for age, with resultant ventricular and sulcal prominence. There are periventricular and deep white matter chronic small vessel ischemic changes. There is intracranial internal carotid artery atherosclerosis. Skull and face: Calvarium and visualized facial bones appear intact, without suspicious lesions. 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 IMPRESSION: #1. No CT evidence of acute pathology. #2. Atrophy and moderate periventricular white matter microangiopathic changes not significantly changed from previous study. #3. Chronic appearing right-sided sinusitis not significant changed from prior study. No significant discrepancies. Dictated by: Humberto Johnson M.D. on 02/21/2019 at 8:18 Approved by: Humberto Johnson M.D. on 02/21/2019 at 8:22 Chest x-ray: Radiologist's impression: PROCEDURE: XR CHEST 1V INDICATIONS: fall sob TECHNIQUE: One view of the chest was acquired. COMPARISON: [facility], CR, XR CHEST 1V, 02/11/2019, 18:03. FINDINGS: Surgical changes and devices: Right chest wall cardiac device position is unchanged. Lungs and pleura: Mild pulmonary vascular congestion and mild pulmonary edema is seen. No pleural effusions or pneumothorax. Mediastinum: Mediastinal contours appear normal. Heart size is enlarged. Bones and chest wall: No suspicious bony lesions. Overlying soft tissues appear unremarkable. IMPRESSION: Cardiomegaly and congestion. No definite focal infiltrate. No gross pneumothorax. Dictated by: Humberto Johnson M.D. on 02/21/2019 at 10:19 ECG Data Attestation: I personally reviewed and interpreted this ECG as follows: Prior ECG tracings: available for review Interpretation: Paced rhythm 75 similar previous EKG no ST changes MDM Narrative Medical decision making narrative: Patient is sleeping. He is requiring oxygen x-ray looks significantly worsen lung sounds are quite course he has peripheral edema BNP is elevated from last time up to 535. This appears to be acute CHF. Still waiting for records from [facility]. Patient urinated with 40 of Lasix. ABG looks better than previous ABG at this time I do not think he needs BiPAP Dr. Mckenzie accepts patient. in ED to see patient. Discharge Plan Departure Patient Disposition: Admitted As Inpatient Clinical Impression: CHF (congestive heart failure) Qualifiers: Heart failure type: systolic Heart failure chronicity: acute on chronic Qualified Code(s): I50.23 - Acute on chronic systolic (congestive) heart failure Admit Date/Time: 02/21/19 11:07 Admit Provider: Landon Mckenzie
[2019-02-21] MEDS: ALBUTEROL/IPRATROPIUM 3 ML AMPUL INH ×2 (07:22→16:31)
--- NOTE | 2019-02-21 07:34 | RT ---
DUONEB GIVEN BY RN RT WAS DETAINED WITH OTHER STAT PROCEDURES
--- NOTE | 2019-02-21 07:35 | PC.NURSE ---
Able to read fingers held in front of his face accurately on L eye.
[2019-02-21 07:37] LABS: Add Manual Diff / Slide Review NO; Basophils Absolute Auto 0 /uL (0-100); Basophils Percent Auto 0.3 % (0-2); Eosinophils Absolute Auto 200 /uL (0-450); Eosinophils Percent Auto 1.4 % (2-4); Hematocrit 40.4 % (41-53); Hemoglobin 13.1 g/dL (13.5-17.5); Lymphocytes Absolute Auto 500 /uL (1100-4500); Lymphocytes Percent Auto 4.1 % (25-40); Mean Corpuscular HGB Conc 32.4 % (30-36); Mean Corpuscular Hemoglobin 27.9 PG (26-34); Mean Corpuscular Volume 86.2 fL (80-100); Monocytes Absolute Auto 1400 /uL (0-900); Monocytes Percent Auto 12.2 % (3-14); Neutrophils Absolute Auto 9700 /uL (1500-7000); Platelet Count 101 X10^3/uL (150-400); Red Blood Cell Count 4.68 X10^6/uL (4.5-5.9); Red Cell Distribution Width 16.6 % (11.6-14.8); White Blood Cell Count 11.9 X10^3/uL (4.5-11.0)
[2019-02-21 07:41] LABS: INR 2.4 (0.9-1.3); Prothrombin Time 28.4 SECONDS (10.1-12.7)
[2019-02-21 07:44] LABS: PTT Partial Thromboplastin Tim 34 SECONDS (26.4-36.2)
[2019-02-21 07:45] LABS: Creatine Kinase 91 U/L (55-170)
[2019-02-21 07:46] LABS: Alanine Aminotransferase 31 IU/L (21-72); Albumin 3.2 g/dL (3.5-5.0); Albumin Globulin Ratio 1.2 (1.0-2.8); Alkaline Phosphatase 57 U/L (38-126); Aspartate Aminotransferase 20 IU/L (17-59); BUN Creatinine Ratio 28.5 (6-22); Bilirubin Total 2.5 mg/dL (0.2-1.3); Blood Urea Nitrogen 74 mg/dL (9-20); Calcium 7.8 mg/dL (8.4-10.2); Carbon Dioxide 33 mmol/L (22-32); Chloride 99 mmol/L (98-107); Estimated Glomerular Filt Rate 23.7 mL/min (>60); Globulin 2.7 g/dL (1.7-4.1); Glucose 112 mg/dL (80-110); HEMOLYSIS < 15 (0-50); Potassium 4.1 mmol/L (3.4-5.1); Sodium 140 mmol/L (137-145); Total Protein 5.9 g/dL (6.3-8.2)
[2019-02-21 07:54] LABS: B Type Natriuretic Peptide 535 (<100)
[2019-02-21] MEDS: FUROSEMIDE 40 MG/4 ML VIAL IV ×2 (08:03→21:14)
[2019-02-21 10:11] LABS: Fractionated Inspired Oxygen 24; HCO3 ABG 7 mmol/L (22-26); Oxygen Saturation ABG 87 % (95-100); PCO2 ABG 57.5 mmHg (35-45); PO2 ABG 57 mmHg (80-100); TCO2 ABG 32 mmol/L (21-31); pH ABG 7.35 (7.35-7.45)
[2019-02-21 10:50] LABS: Influenza A and B by PCR Rapid Negative (Negative)
[2019-02-21 11:56] LABS: Bacteria Urine None Seen
[2019-02-21 12:07] LABS: RBC Urine 0-1/HPF (0-5/HPF); WBC Urine 0-1/HPF (0-5/HPF)
[2019-02-21 12:08] LABS: Culture Indicated Urine Cult Not Indicated
--- NOTE | 2019-02-21 12:08 | P.HP_ITS ---
History of Present Illness Date Patient Seen: 02/21/19 Time Patient Seen: 12:03 Chief complaint: GLF Narrative: Patient is an 83-year-old male patient of Dr. Rodriguez who I am cross covering for. History is primarily from son and emergency room doctor. Patient not a great historian right now. Recently admitted to [facility] 02/12/2019 discharge 02/15/2019. Patient apparently has not been doing well over the last 4-5 weeks. Has been a slow decline. Spending most of his time sleeping in his chair. Has been increasing difficulty with care at home. They have been looking at different options. Really has not been complaining of much. Apparently was admitted with increased CO2 and decreased oxygen and acute renal failure. Was given BiPAP and diuresed and basically sent home. Apparently had recovered quite well. Patient come home and really family did feel was that much different period was back to his baseline prior to going into the hospital. They have been working on possible home care or hospice. Apparently patient has been come increasingly unable to get out of bed for the last 24 hours. Fell out of bed today. Complaining of no real pain. patient not really awake and alert. No other significant changes. Apparently there was some question about dialysis and patient was not interested in that at the time although family is not sure if it would have been some he would have turned to over time. Family has been looking at possible hospice and possible care outside the home. Apparently has not been doing well and is not able to care. Patient is desire for no code. Has no other significant new changes. Past medical history renal failure Hypercapnic respiratory failure COPD History of CHF Defibrillator Coronary artery disease Past surgical history defibrillator will fill in from chart at office. Social history. Smoker. Lives at home with . Has family support in the area. Retired. Patient History Medical History Atrial fibrillation (Acute) CHF (congestive heart failure) (Acute) COPD (chronic obstructive pulmonary disease) (Acute) Social History Smoking Status: Unknown if ever smoked Family & Social History Safety & Behavioral: Feels Safe in Current Yes Environment Been Physically Hurt or No Threatened By a Person Tobacco & Substance use: Smoking Status Unknown if ever smoked alcohol intake frequency holiday/special occasion Substance Use Type does not use Meds Home Medications Medication Instructions Recorded Confirmed Type carvedilol [Coreg] 37.5 mg PO BID #0 06/24/13 02/21/19 History clopidogrel [Plavix] 75 mg PO QAM #0 06/24/13 02/21/19 History albuterol sulfate [ProAir HFA] 2 puff INHALATION Q4H PRN 02/11/19 02/21/19 History alfuzosin 10 mg PO DAILY 02/11/19 02/21/19 History cetirizine 10 mg PO DAILY PRN 02/11/19 02/21/19 History furosemide 40 mg PO DAILY 02/11/19 02/21/19 History pregabalin [Lyrica] 75 mg PO BID 02/11/19 02/21/19 History warfarin 2.5 mg PO 2XW 02/11/19 02/21/19 History warfarin 5 mg PO 5XW 02/11/19 02/21/19 History Allergies Allergy/AdvReac Type Severity Reaction Status Date / Time aspirin Allergy Verified 02/21/19 07:06 Review of Systems Review of Systems Unobtainable Exam Vital Signs (past 8 hours): - 02/21/19 06:57 02/21/19 07:35 02/21/19 09:30 Temperature 99.8 F H Pulse Rate 84 55 L 63 Respiratory Rate 22 20 22 Blood Pressure 125/71 Blood Pressure [Right Arm] 119/59 L 113/65 Pulse Oximetry 90 L 96 96 02/21/19 11:00 02/21/19 11:30 Temperature Pulse Rate 83 113 H Respiratory Rate 21 20 Blood Pressure Blood Pressure [Right Arm] 104/60 125/104 H Pulse Oximetry 100 100 Oxygen Delivery Method Room Air Oxygen Flow Rate 0.5 Narrative Exam Narrative: Alert elderly male lying in bed arousable but not conversant. Eyes unremarkable. Small amount ecchymosis around left eye nontender Mucous membranes moist. Neck supple without adenopathy JVD up to jaw. No mass is nontender no thyromegaly. no supraclavicular adenopathy. Lungs are diffuse expiratory crackles. No wheeze or rhonchi. No retractions. Heart's distant. Abdomen is soft positive bowel sounds nontender. Extremities with 2+ edema to knee. No evidence of erythema swelling or lesions. neurologic exam moving all extremities but somnolent. Pupils are equal response to light. Psychologically unable to evaluate. Objective Labs Result Diagrams: 02/21/19 07:30 02/21/19 07:30 Labs: Laboratory Results - last 24 hr 02/21/19 02/21/19 02/21/19 07:30 07:30 07:30 WBC 11.9 H RBC 4.68 Hgb 13.1 L Hct 40.4 L MCV 86.2 MCH 27.9 MCHC 32.4 RDW 16.6 H Plt Count 101 L Neut % (Auto) 82.0 H Lymph % (Auto) 4.1 L [place] % (Auto) 12.2 Eos % (Auto) 1.4 L Baso % (Auto) 0.3 Neut # (Auto) 9700 H Lymph # (Auto) 500 L [place] # (Auto) 1400 H Eos # (Auto) 200 Baso # (Auto) 0 PT 28.4 H D INR 2.4 H APTT 34 ABG pH ABG pCO2 ABG pO2 ABG HCO3 ABG Total CO2 ABG O2 Saturation ABG Base Excess FiO2 Sodium Potassium Chloride Carbon Dioxide BUN Creatinine Estimated GFR BUN/Creatinine Ratio Glucose Calcium Magnesium 2.0 Total Bilirubin AST ALT Alkaline Phosphatase Total Creatine Kinase 91 CK-MB (CK-2) TNP CK-MB (CK-2) Rel Index TNP Troponin I 0.050 H B-Natriuretic Peptide 535 H Total Protein Albumin Globulin Albumin/Globulin Ratio Influenza A & B (PCR) 02/21/19 02/21/19 02/21/19 07:30 09:41 10:26 WBC RBC Hgb Hct MCV MCH MCHC RDW Plt Count Neut % (Auto) Lymph % (Auto) [place] % (Auto) Eos % (Auto) Baso % (Auto) Neut # (Auto) Lymph # (Auto) [place] # (Auto) Eos # (Auto) Baso # (Auto) PT INR APTT ABG pH 7.35 ABG pCO2 57.5 H ABG pO2 57 L ABG HCO3 7 L ABG Total CO2 32 H ABG O2 Saturation 87 L ABG Base Excess 34.0 H FiO2 24 Sodium 140 Potassium 4.1 Chloride 99 Carbon Dioxide 33 H BUN 74 H Creatinine 2.60 H Estimated GFR 23.7 L BUN/Creatinine Ratio 28.5 H Glucose 112 H Calcium 7.8 L Magnesium Total Bilirubin 2.5 H AST 20 ALT 31 Alkaline Phosphatase 57 Total Creatine Kinase CK-MB (CK-2) CK-MB (CK-2) Rel Index Troponin I B-Natriuretic Peptide Total Protein 5.9 L Albumin 3.2 L Globulin 2.7 Albumin/Globulin Ratio 1.2 Influenza A & B (PCR) Negative Assessment & Plan Assessment & Plan narrative: 83-year-old male with multi system failure. Family has been discussing hospice. Son believes he is a no code. Son believes he does not want aggressive management. Has been thinking about comfort care but has not made full decision. Unable to make that decision at that time. We discussed that this is very serious and potentially life ending. Son understands. He would like to do some simple care and see how we do. Not aggressive. Hypercapnic respiratory failure probably secondary to CHF. Respiratory therapy. Will need to be very careful. In too much oxygen we could decrease his response. Will continue O2 aggressive his Lasix and re-evaluate. Congestive heart failure acute on chronic systolic left heart. Although probably has some right heart failure also from echo. Chest x-ray pretty significantly showing fluid overload Recent echo showed 32% with no definitive cause of what brought him into the hospital the 1st time. Did not appear to be ischemic. Probably progression of disease. With kidney failure will make this very difficult which we discussed. Will continue IV Lasix and follow. Renal failure chronic. Patient with chronic renal failure appears to be close to baseline. We will see what happens when he responds to Lasix. We discussed his renal function and any worsening may require dialysis son is not sure that he would want to do that. Certainly did not seem to want to do it before. Will follow. Certainly would have to be transferred if that is the case. Coronary artery disease. Appears to be stable. EKG shows paced rhythm with no evidence of abnormality will follow. Ground level fall. No evidence of significant trauma to head other than some mild bruising CT scan was negative will follow. COPD. See above treatment patterns. History of tobacco abuse. Will hold on patches for now. Follow. Atrial fibrillation. Seems to be doing okay mostly paced monitor. Will continue usual medicines. Code status. No code by sons expectation of what his father wants. GI prophylaxis will hold treatment at this time. Disposition. Will be a potential leonardo course. If not doing well by tomorrow we will consider discussing comfort care which we began that discussion today. They understand questions answered
--- NOTE | 2019-02-21 12:31 | PC.NURSE ---
pt arrived to ER with Stage I breakdown on his buttocks, perineal folds/groin area. Areas are chapped, peeling, warm to touch, erythema present. unisalve/ barrier cream applied. Edema present on b/l lower extremities. pitting+2,dry.
--- NOTE | 2019-02-21 12:37 | PC.NURSE ---
after abg, RT / MD suggested oxygen increase to 3L NC
--- NOTE | 2019-02-21 15:24 | PC.NURSE ---
Patient very lethargic, but arousable and woke up to talk with his sons and drink apple juice. Sharma placed per MD order and secured, patient tolerating well. Remains on 3L NC at this time. Call light within reach with bed alarm on for safety.
--- NOTE | 2019-02-21 19:42 | PC.NURSE ---
Addendum entered by Yaneli Colon R.N. 02/21/19 22:23: Pt arouses to voice. pt sleepy. pt answers all questions. pt helped reposition himself. pt has been on room air for the majority of the shift. RT ok with him being 88-92%. he did need 1L nc while eating/talking with friend. Pt sleeping and anywhere from 88 - 94% on room air. Original Note: karen shift assumed care of pt from outgoing shift at 1500 this day. pt asleep. arouses to voice. keeps eyes closed mostly. denies pain. does open eyes when having conversation. pt cooperative with staff. repositioned in bed q2H. pt had visitor and spoke with him for quite some time. granddaughter called and pt spoke with her as well for quite some time. pt perked up while talking to her. Pt carlene patent. bed alarm on. side rails upx3. pt ate all of his clear liquids for dinner. tolerated well. will continue to monitor.
[2019-02-21] MEDS: WARFARIN 5 MG TABLET PO (21:15)
[2019-02-22] VITALS (20 sets, daily range): BP systolic 102–125; BP diastolic 51–68; PULSE 73–78; RESP 14–20; TEMP 36.5–36.9; O2SAT 87–98
--- NOTE | 2019-02-22 01:40 | PC.NURSE ---
Patient is alert and oriented except to year and thought he was in [place]. Breath sounds with late expiratory wheezing throughout. At start of shift patient was on RA with sat fluctuating 89-92% and then dropped down to 86% so placed on oxygen at 1L/min per NC with sat now at 95%; oxygen now decreased to 0.5L/min. Denies feeling SOB. HRR and was v-paced on 0000 telemetry reading. Denies nausea. BT present and states he is passing flatus. Indwelling catheter patent with clear yellow urine; catheter care provided by IMAGING ENGINEER. Noted red, excoriated skin on scrotum, upper thighs and perineum. Bruising present on left eye and bilateral UE. Has 2+ edema in bilateral LE and 3+ edema in bilateral feet. Denies pain. Wearing bilateral SCD's. Fall risk score is high and bed alarm is activated.
[2019-02-22 05:38] LABS: INR 3.4 (0.9-1.3); Prothrombin Time 40.6 SECONDS (10.1-12.7)
[2019-02-22 05:39] LABS: Add Manual Diff / Slide Review NO; Basophils Absolute Auto 100 /uL (0-100); Basophils Percent Auto 0.9 % (0-2); Eosinophils Absolute Auto 300 /uL (0-450); Eosinophils Percent Auto 2.6 % (2-4); Hematocrit 39.4 % (41-53); Hemoglobin 12.6 g/dL (13.5-17.5); Lymphocytes Absolute Auto 700 /uL (1100-4500); Mean Corpuscular HGB Conc 32.1 % (30-36); Mean Corpuscular Hemoglobin 27.9 PG (26-34); Mean Corpuscular Volume 86.8 fL (80-100); Monocytes Absolute Auto 1100 /uL (0-900); Monocytes Percent Auto 11.5 % (3-14); Neutrophils Absolute Auto 7800 /uL (1500-7000); Platelet Count 91 X10^3/uL (150-400); Red Blood Cell Count 4.54 X10^6/uL (4.5-5.9); Red Cell Distribution Width 16.9 % (11.6-14.8)
[2019-02-22 05:45] LABS: BUN Creatinine Ratio 30.4 (6-22); Blood Urea Nitrogen 73 mg/dL (9-20); Calcium 7.8 mg/dL (8.4-10.2); Carbon Dioxide 33 mmol/L (22-32); Chloride 99 mmol/L (98-107); Glucose 107 mg/dL (80-110); HEMOLYSIS < 15 (0-50); Potassium 3.6 mmol/L (3.4-5.1); Sodium 140 mmol/L (137-145)
[2019-02-22 06:18] LABS: B Type Natriuretic Peptide 467 (<100)
[2019-02-22] MEDS: FUROSEMIDE 40 MG/4 ML VIAL IV ×2 (07:45→20:42)
--- NOTE | 2019-02-22 07:59 | P.PN_ITS ---
Subjective Date Patient Seen: 02/22/19 Time Patient Seen: 07:52 Interval history: Patient seen in follow-up of multiple issues including congestive heart failure respiratory failure and metabolic encephalopathy. Patient is awake and alert. Feeling well. Having no complaints. Realizes that he had a fall yesterday. Not having any shortness of breath or chest pain. no headaches. Visual symptoms or other change. He feels like things are going well at home. Exam Vital Signs (past 8 hours): - 02/22/19 00:06 02/22/19 01:33 02/22/19 01:39 Temperature 97.7 F Pulse Rate 73 Respiratory Rate 20 Blood Pressure 106/51 L Pulse Oximetry 94 95 95 02/22/19 03:33 02/22/19 03:39 02/22/19 04:20 Temperature 98.3 F Pulse Rate 75 Respiratory Rate 20 Blood Pressure 112/66 Pulse Oximetry 94 87 L 94 02/22/19 07:50 Temperature 98.5 F Pulse Rate 75 Respiratory Rate 16 Blood Pressure 113/63 Pulse Oximetry 95 Oxygen Delivery Method Room Air Oxygen Flow Rate 0.5 Narrative Exam Narrative: Alert elderly male lying in bed interactive appropriate smiling. HEENT exam mucous membranes moist neck supple without adenopathy decreased JVD. Lungs showed diffuse mild crackles but much improved. No retractions. Heart is regular rate and rhythm without other change. Abdomen is soft positive bowel sounds nontender. extremities with continued edema 1+ much improved. Neurologic exam patient is awake and alert interactive. Appropriate. Moving all extremities. Psychologically happy smiling Objective Labs Result Diagrams: 02/22/19 05:20 02/22/19 05:20 Labs: Laboratory Results - last 24 hr 02/21/19 02/21/19 02/21/19 07:30 07:30 09:41 WBC RBC Hgb Hct MCV MCH MCHC RDW Plt Count Neut % (Auto) Lymph % (Auto) [place] % (Auto) Eos % (Auto) Baso % (Auto) Neut # (Auto) Lymph # (Auto) [place] # (Auto) Eos # (Auto) Baso # (Auto) PT INR ABG pH 7.35 ABG pCO2 57.5 H ABG pO2 57 L ABG HCO3 7 L ABG Total CO2 32 H ABG O2 Saturation 87 L ABG Base Excess 34.0 H FiO2 24 Sodium Potassium Chloride Carbon Dioxide BUN Creatinine Estimated GFR BUN/Creatinine Ratio Glucose Calcium Troponin I 0.050 H B-Natriuretic Peptide 535 H Urine RBC Urine WBC Urine Bacteria Ur Culture Indicated? Influenza A & B (PCR) 02/21/19 02/21/19 02/22/19 10:26 11:00 05:20 WBC 10.0 RBC 4.54 Hgb 12.6 L Hct 39.4 L MCV 86.8 MCH 27.9 MCHC 32.1 RDW 16.9 H Plt Count 91 L Neut % (Auto) 78.0 H Lymph % (Auto) 7.0 L [place] % (Auto) 11.5 Eos % (Auto) 2.6 Baso % (Auto) 0.9 Neut # (Auto) 7800 H Lymph # (Auto) 700 L [place] # (Auto) 1100 H Eos # (Auto) 300 Baso # (Auto) 100 PT INR ABG pH ABG pCO2 ABG pO2 ABG HCO3 ABG Total CO2 ABG O2 Saturation ABG Base Excess FiO2 Sodium Potassium Chloride Carbon Dioxide BUN Creatinine Estimated GFR BUN/Creatinine Ratio Glucose Calcium Troponin I B-Natriuretic Peptide 467 H Urine RBC 0-1/hpf Urine WBC 0-1/hpf Urine Bacteria None seen Ur Culture Indicated? Cult not indicated Influenza A & B (PCR) Negative 02/22/19 02/22/19 05:20 05:20 WBC RBC Hgb Hct MCV MCH MCHC RDW Plt Count Neut % (Auto) Lymph % (Auto) [place] % (Auto) Eos % (Auto) Baso % (Auto) Neut # (Auto) Lymph # (Auto) [place] # (Auto) Eos # (Auto) Baso # (Auto) PT 40.6 H D INR 3.4 H ABG pH ABG pCO2 ABG pO2 ABG HCO3 ABG Total CO2 ABG O2 Saturation ABG Base Excess FiO2 Sodium 140 Potassium 3.6 Chloride 99 Carbon Dioxide 33 H BUN 73 H Creatinine 2.40 H Estimated GFR 26.0 L BUN/Creatinine Ratio 30.4 H Glucose 107 Calcium 7.8 L Troponin I B-Natriuretic Peptide Urine RBC Urine WBC Urine Bacteria Ur Culture Indicated? Influenza A & B (PCR) Assessment & Plan Assessment & Plan narrative: Metabolic encephalopathy. Markedly improved. Probably secondary to respiratory status. No evidence of significant infection or other abnormality. Will follow but I think we are back to baseline already. Congestive heart failure. Acute on chronic systolic left heart. Patient with good output feeling much better renal failure is actually doing pretty well. Will continue current Lasix for today. Due to the fact that he was recurrently admitted will have Cardiology see him and whether not we need to make some medication changes. Will follow from there. Hypercapnic respiratory failure acute. Doing much better. Tolerated O2. Appears to be responding to IV Lasix. Will follow. No evidence of significant infection no antibiotics at this time. Atrial fibrillation. Certainly rate is controlled. INR is too high today. Will hold today and follow. Recheck in a.m.. I do not think we need to reverse. No evidence of bleeding. Coronary artery disease. Stable. No evidence of symptoms. Will follow. Ground level fall with head trauma. Had already looks better. Minimal bruising. Feeling well no complaints today will follow. COPD discussed need to stop smoking which patient is not going to do will follow from there. No change in treatment. History of tobacco abuse. Seems to be doing well. Will hold patches for now. Code status we discussed with patient. He does not want to be coded. DNR will be in place. GI prophylaxis. No need at this time. DVT prophylaxis on Coumadin. Disposition. Markedly improved. We will see how he does over the next 24 hours. See what career and technology education teacher recommends will follow. Certainly will go home till tomorrow for sure.
[2019-02-22] MEDS: CLOPIDOGREL 75 MG TABLET PO (09:13)
[2019-02-22] MEDS: CARVEDILOL 25 MG TABLET 37.5 MG PO ×2 (09:13→20:46)
[2019-02-22] MEDS: SODIUM CHLORIDE 0.9% FLUSH 10 ML IV ×2 (09:14→20:43)
--- NOTE | 2019-02-22 10:22 | CM.DANOTE ---
Addendum entered by Margaret Collazo LPN 02/22/19 15:44: Ashli has called back this afternoon. She wanted to make sure the referral to [facility] was in place as I thinkk he is going to need this before he comes home. Elda/[facility] is updated: says she expects to have an open male bed by Friday: 02/24/19. She will reserve bed for pt. Confirmed that pt is here under INPT admission status as of 02/21/19. Original Note: Addendum entered by Margaret Collazo LPN 02/22/19 11:26: Met now with pt and his Ashli. Ashli reports that pt's care needs are increasing and especially after he was discharged from [facility]. She reports he fell when getting out of bed to go to the bathroom on Tuesday 02/20. The demurrage worker picked him up off the floor. His bed was saturated with urine. Pt admits he does not recall these details. Discussed home care using caregivers. Ashli said she thought that Medicare covered this. Explained the SNF, HH, HNW coverage under Medicare and that home caregivers were often a needed adjunct to the HH or Hospice care in the home. At this point: Ashli will be here tomorrow at 1030 for the HNW visit. She and pt wish a referral to be into [facility] in case of need and if it looks like pt would benefit from some rehab and medical stability snf care before going home. (pt reluctant but agreeable if need be). This would be a back up plan and with goal to get pt back to his home setting with increased assistance. Agreed to give Ashli the caregiver agency info/will provide 2019 [facility] Senior Resource Guide after more is known tomorrow. Hope to discuss this with Dr. Rodriguez when he rounds tomorrow as expect he will have some clarity re what is the most appropriate pathway for this pt going forward. Original Note: Addendum entered by Margaret Collazo LPN 02/22/19 10:32: Dr. Mckenzie did say he will be consulting with cardiology today. Original Note: Discharge Planning/Care Management DCP: assessment: case received, EMR reviewed and met with pt. Introduced self and role. Pt at this point seems to be a vague historian. He said his would be in later and this DCPlanner agreed to follow up with her. (have left a vm for her now on H: [phone]. PT is an 83 year old male who admitted yesterday to care of Dr. Mckenzie. PCP: Dr. Rodriguez (of same clinic). Dr. Mckenzie reports that Dr. Rodriguez will see pt tomorrow. Payer: Medicare and for Life Admission status: INPT: confirmed by UR RN Harshad. Pt with a recent hospital admission: [facility] 02/12 - 02/15. (unknown if this was an INPT stay) Received a call from Ismael/[facility]: She stated that Dr. Rodriguez had made a referral to them last week for an info visit and this had been set up for tomorrow at 1030. Neyda will plan to see pt and family at the hospital at that time. P: will be following as per above and anticipate speaking with family later today. CM Discharge Assessment Start: 02/22/19 10:21 Freq: Status: Active Protocol: Document 02/22/19 10:21 ITV (Rec: 02/22/19 10:22 [email or web address]) Discharge Planning Assessment History Provided By Patient Medical Record Prior Living Arrangements House Household Members spouse Review Status In Process Next Review Type Continued Stay Review
--- NOTE | 2019-02-22 11:35 | PT.IIE ---
Current Diagnoses Acute on chronic systolic (congestive) heart failure (02/21/19) Medical History (Last Reviewed 02/21/19 @ 07:23 by Yuliet Plasencia DO) Atrial fibrillation (Acute) CHF (congestive heart failure) (Acute) COPD (chronic obstructive pulmonary disease) (Acute) Physical Therapy Inpatient Evaluation/Re-Eval M1 PT/OT-IP Prior Functional Status Start: 02/22/19 11:12 Freq: NEEDED Status: Active Protocol: Document 02/22/19 10:10 (Rec: 02/22/19 11:35 [email or web address]) Medical Review Prior Functional Status Medical History Reviewed Yes Communication Pt at this point seems to be a vague historian. Ax O x 3 does not know current year. Able to make needs known Mobility and Gait Pt stated he was an independent ambulator at home and community without using AD . Pt has a 4ww and FWW. Activities of Daily Living and IADL's Pt stated he was independent with ADLs but assisted for IADLs such as cooking, cleaning and grocery shopping. Pt did say he had difficulty donning diaper on at home. Social History Household Members spouse Living Arrangements House Number of Floors (Floors) One Floor Number of Stairs To Enter/Railing? 5 TERESA with B railings Home Environment Standard Height Toilet Walk in Shower Home Equipment Front Wheel Walker Four Wheel Walker Straight Cane Raised Toilet Seat Without Armrests Grab Bars Near Toilet Grab Bars In Shower Employment Status Retired Additional Social History Comment Per H&P, Patient apparently has not been doing well over the last 4-5 weeks. Has been a slow decline. Spending most of his time sleeping in his chair. Has been increasing difficulty with care at home. Apparently was admitted with increased CO2 and decreased oxygen and acute renal failure . Was given BiPAP and diuresed and basically sent home. Apparently had recovered quite well. Patient come home and really family did feel was that much different period was back to his baseline prior to going into the hospital. They have been working on possible home care or hospice. Apparently patient has been come increasingly unable to get out of bed for the last 2 days. Fell out of bed yesterday. Family has been looking at possible hospice and possible care outside the home. Apparently has not been doing well and is not able to care. Patient is desire for no code. M2 PT-IP Current Condition Start: 02/22/19 11:12 Freq: NEEDED Status: Active Protocol: Document 02/22/19 10:10 HH (Rec: 02/22/19 11:35 [email or web address]) Physical Therapy Current Condition Current Condition Evaluation Date 02/22/19 Treatment Diagnosis GLF, hypercapnia, CHF, impaired gait and activity tolerance Onset Date 02/21/19 Weight Bearing Status Weight Bearing Status Weight Bear as Tolerated M3 PT-IP Subjective Start: 02/22/19 11:12 Freq: NEEDED Status: Active Protocol: Document 02/22/19 10:10 HH (Rec: 02/22/19 11:35 [email or web address]) Subjective Physical Therapy Visit Type Type Initial Evaluation Visit Start Time 10:10 Visit Stop Time 10:35 Total Visit Minutes 25 Notes Per SKIVER OPERATOR, pt had got OOB to [facility] for BW. Pt has been on NC but currently is not on since he is able to maintain >90s O2 Sat. SKIVER OPERATOR also stated he was very confused and lethargic yesterday but today is much better. Number of IT TECHNICAL SPECIALIST Visits 0 Physical Therapy Visit Comments Patient Comments Im feeling a lot better today . But i think im dying also. Patient Goals To return home Pt statesI want to smoke. Therapy Pain Assessment Pain Present Pain Present Denied Pain M4 PT-IP Mobility and Gait Start: 02/22/19 11:12 Freq: NEEDED Status: Active Protocol: Document 02/22/19 10:10 HH (Rec: 02/22/19 11:35 [email or web address]) PT-Bed Mobility Assessment Rolling Type of Rolling Roll to Left Level of Assist Standby Assistance Supine to Sit Supine to Sit Standby Assistance Head of Bed Elevated Bedrails Sit to Supine Sit to Supine Standby Assistance Head of Bed Elevated Bedrails Scooting Scooting to Edge of Bed Standby Assistance PT-Transfer Assessment Sit to and From Stand Sit to and from Stand Contact Guard Assistance Use of Upper Extremities Equipment Transfer Assistive Device Gait Belt Front Wheeled Walker Orthotic/Prosthetic Devices or Brace: No Transfers Transfer Destination Bed Chair Transfer Technique Stand Step Pivot Transfer Ability Level of Assist Contact Guard Assistance Comments Mobility Comments Pt was in bed upon assessment. NC O2 is off. pt able to maintain >90s O2 during session. Pt got up from bed and transferred to chair with FWW CGA. He also did not use FWW towards the end of session but presented poor eccentric control for stand to sit. Need cues for safety such as hand placements and walker management. Gait Assessment Gait Gait Assistance Required: Contact Guard Assist Distance (Feet) 80 Able to Maintain Weight Bearing Status Yes During Gait Assistive Devices Assistive Device Gait Belt Front Wheeled Walker Orthotic/Prosthetic Devices or Brace: No Gait Deviations General Gait Pattern Decreased Stride Length Decreased Feet Clearance Factors Limiting Gait Function Factors Limiting Gait Function Decreased Activity Tolerance Decreased Strength Poor Balance Poor Safety Awareness Respiratory Distress Comments Gait Comments Pt amb from EOB to hallway and returned to bedside chair with FWW. Pt amb first 75 feet with FWW then 5 feet without AD. Pt needed cues for walker management during turns. He tends to place his FWW away from his body during turns and decreased steadiness. Stair Climbing Assessment Evaluation Level of Assist On Stairs Contact Guard Assistance Devices Stair Climbing Assistive Devices Front Wheel Walker Technique/Endurance Stair Climbing Direction Ascend and Descend Stair Climbing Technique Step Over Step Step to Step Number of Steps Climbed 3 Query Text: Stair Climbing Set # Repetitions (reps) 1 Comments Stair Climbing Comments Step over during ascend step to during descend PT-Balance Assessment Sitting Balance and Reactions Static Sitting Balance Ability Normal Dynamic Sitting Balance Ability Normal Standing Balance and Reactions Static Standing Balance Ability Good Dynamic Standing Balance Ability Good M5 PT-IP Objective Assessments Start: 02/22/19 11:12 Freq: NEEDED Status: Active Protocol: Document 02/22/19 10:10 (Rec: 02/22/19 11:35 [email or web address]) Orientation Orientation/Cognition Level of Alertness Alert Orientation Name Age Birthday Month Date Day of Week Place Situation Language Function Ability No Deficits Noted Safety Awareness Understands Safety Issues Decreased Safety Awareness Memory Description No Deficits Noted Comments pt often misplaced his FWW during turns Gross Range of Motion Upper Extremity ROM Assessment Within Functional Limits Lower Extremity ROM Assessment Within Functional Limits Strength Upper Extremity Strength Assessment Within Functional Limits Lower Extremity Strength Assessment Bilaterally Impaired Comments Strength Comments 4-/5 B LE strength Coordination Assessment Gross Coordination Gross Coordination WNL Assessment Finger to Nose Test Normal Performance Pronation/Supination Test Normal Performance Sensation Assessment Sensation Gross Sensation WNL Light Touch Intact Proprioception (Position) Intact Muscle Tone Muscle Tone WNL Yes M6 PT-IP Treatment Start: 02/22/19 11:12 Freq: NEEDED Status: Active Protocol: Document 02/22/19 10:10 (Rec: 02/22/19 11:35 [email or web address]) Physical Therapy Treatment Education Education Provided Safety M7 PT-IP Assessment and Plan Start: 02/22/19 11:12 Freq: NEEDED Status: Active Protocol: Document 02/22/19 10:10 (Rec: 02/22/19 11:35 [email or web address]) PT Summary Assessment and Plan Potential Rehabilitation Potential Good Status of Condition at Evaluation Evolving Summary Impairments Strength Balance Cognition Bed Mobility Transfers Gait Activity Tolerance Assessment Summary Pt showed improved mobility today but he demonstrated slightly impulsive and needed cues for walker management/ safety awareness. He mobilized with overall CGA but did present unsteadiness from time to time especially during turns. Pt also showed improved cognition today with Ax O x 3 except the year. He was able to recall his fall and recent hospitalization at [facility]. However, pt stated he was pretty independent and mobile the whole day even though the past few weeks which is not aligned with EMR. Pt has had increased weakness lately and mostly bed bound. Pt at this point is too much of a burden for his spouse to take care of due to his unsteadiness with or without AD. Pt will benefit from dc to SNF to improve mobility prior to d/c home. Goals Bed Mobility Goal Independent Transfer Goal Independent Cane Front Wheeled Walker Gait Goal Independent Cane Front Wheel Walker Gait Distance 200 Other Goals climb steps 5 with B railings Days to Meet Goals 5 Frequency of Treatment Frequency Of Treatment Once a Day Treatment Plan Physical Therapy Treatment Plan Bed Mobility Training Transfer Training Gait Training Therapeutic Exercise Balance Retraining Discharge Planning Other Recommendations and Next Treatment transfer gait training as samir Focus with LRAD stair climbing x 5 with B railings Recommendations To Nursing Amount of Assist Needed 1 Person Assist Discharge Recommendations PT Discharge Recommendations SNF Rehab Other Discharge Recommendations Family has been looking at possible hospice and possible care outside the home. Apparently has not been doing well and is not able to care.
--- NOTE | 2019-02-22 11:53 | CM.DPC ---
DCP Cont: Faxed referral to [facility] at fax # [phone]. Fax confirmation scanned in. Anny Jameson, Care Upholstery Department Supervisor
--- NOTE | 2019-02-22 12:35 | DIET.PN ---
Per Uche score of 14, high risk for skin breakdown. MNA:9, risk for PCM Ate 100% breakfast Plan: add ONS for additional protein;
--- NOTE | 2019-02-22 16:57 | PC.NURSE ---
Addendum entered by Loree Edmondson R.N. 02/22/19 22:44: Pt had relatively uneventful evening. Denies any discomfort. Tele shows V-paced per ICU staff. Call light w/in reach, bed alarm on for pt safety. Continue w/plan of care. Original Note: Pt resting at intervals. Lungs w/ expiratory wheeze noted SpO2 96% on 0.5L O2. Tele showing V-paced per ICU staff. Bruising around eye, denies discomfort Would like to sleep until dinner. Call light w/in reach, bed alarm on for pt safety.
--- NOTE | 2019-02-22 17:22 | PM.CN ---
History of Present Illness Date Patient Seen: 02/22/19 Time Patient Seen: 17:22 Chief complaint: GLF Reason for consult: For CHF evaluation Narrative: This 83 years old pleasant male who has a history of anterior wall as well as inferior wall myocardial infarction in the past, ischemic heart disease with ischemic cardiomyopathy, chronic systolic congestive heart failure, status post biventricular AICD, LV ejection fraction 35-40% in September 2014, paroxysmal AFib, peripheral vascular disease status post fem-fem bypass surgery in [facility], iliacs PTCA in the past, laser atherectomy and stent placement to the chronic total occlusion of left SFA in September 2011 at [facility], chronic kidney disease, history of renal infarction, chronic smoker, significant COPD who was recently at [facility] for respiratory failure as well as heart failure, details not available at present, again got admitted with history of fall. Today Dr. Mckenzie asked Cardiology to evaluate the patient for optimize CHF management. At present patient is lying on bed. No active chest pain or resting shortness of breath or PND orthopnea or fever or chills. With IV Lasix, urine output has improved. He still has lower extremity swelling. He smokes about 10 cigarettes every day. No hemoptysis. No resting claudication pain. He is not able to walk at home. He feels weak. Not able to take care of himself. [facility] Medical History Atrial fibrillation (Acute) CHF (congestive heart failure) (Acute) COPD (chronic obstructive pulmonary disease) (Acute) Social History household members: spouse Smoking Status: Current every day smoker Social History household members: spouse Smoking Status: Current every day smoker Meds Home Medications Medication Instructions Recorded Confirmed Type carvedilol [Coreg] 37.5 mg PO BID #0 06/24/13 02/21/19 History clopidogrel [Plavix] 75 mg PO QAM #0 06/24/13 02/21/19 History albuterol sulfate [ProAir HFA] 2 puff INHALATION Q4H PRN 02/11/19 02/21/19 History alfuzosin 10 mg PO DAILY 02/11/19 02/21/19 History cetirizine 10 mg PO DAILY PRN 02/11/19 02/21/19 History furosemide 40 mg PO DAILY 02/11/19 02/21/19 History pregabalin [Lyrica] 75 mg PO BID 02/11/19 02/21/19 History warfarin 2.5 mg PO 2XW 02/11/19 02/21/19 History warfarin 5 mg PO 5XW 02/11/19 02/21/19 History Allergies Allergy/AdvReac Type Severity Reaction Status Date / Time aspirin Allergy Verified 02/21/19 07:06 Review of Systems Review of Systems Ten points review of systems were obtained and are negative except as stated above. Exam Vital Signs (past 8 hours): - 02/22/19 10:42 02/22/19 15:40 02/22/19 15:54 Temperature 98.3 F 98.2 F Pulse Rate 75 74 74 Respiratory Rate 18 20 16 Blood Pressure 113/57 L 102/58 L Pulse Oximetry 92 95 98 02/22/19 16:00 Temperature Pulse Rate Respiratory Rate Blood Pressure Pulse Oximetry 93 Oxygen Delivery Method Nasal Cannula Oxygen Flow Rate 0.5 Const General: cooperative and acute distress (Not) HENMT Other: Positive hepatojugular reflux Eyes Other: No significant anemia Neck Other: Positive hepatojugular reflux Chest Other: No chest wall tenderness Resp Other: Bilateral decreased air entry and rhonchi Cardio Other: S1 appears normal, P2 appears prominent, no S3, no S4, grade 2 x 6 ejection systolic murmur at the base GI Other: No obvious pulsatile mass or hepatosplenomegaly Other: No suprapubic tenderness Neuro Other: No obvious focal motor deficit Extrem Other: Moderate bilateral pedal edema Psych Other: At present conscious and alert. Objective Labs Result Diagrams: 02/22/19 05:20 02/22/19 05:20 Labs: Laboratory Results - last 24 hr 02/22/19 02/22/19 02/22/19 05:20 05:20 05:20 WBC 10.0 RBC 4.54 Hgb 12.6 L Hct 39.4 L MCV 86.8 MCH 27.9 MCHC 32.1 RDW 16.9 H Plt Count 91 L Neut % (Auto) 78.0 H Lymph % (Auto) 7.0 L [place] % (Auto) 11.5 Eos % (Auto) 2.6 Baso % (Auto) 0.9 Neut # (Auto) 7800 H Lymph # (Auto) 700 L [place] # (Auto) 1100 H Eos # (Auto) 300 Baso # (Auto) 100 PT 40.6 H D INR 3.4 H Sodium 140 Potassium 3.6 Chloride 99 Carbon Dioxide 33 H BUN 73 H Creatinine 2.40 H Estimated GFR 26.0 L BUN/Creatinine Ratio 30.4 H Glucose 107 Calcium 7.8 L B-Natriuretic Peptide 467 H Assessment & Plan (1) Paroxysmal atrial fibrillation: Current visit: Yes Status: Acute (2) Acute on chronic systolic heart failure: Current visit: Yes Status: Acute (3) Ischemic cardiomyopathy: Current visit: Yes Status: Acute (4) Biventricular automatic implantable cardioverter defibrillator in situ: Current visit: Yes Status: Acute (5) Peripheral arterial disease: Current visit: Yes Status: Acute Assessment & Plan narrative: Patient is responding to IV Lasix. He has acute on chronic renal insufficiency hence at this point of time, will not recommend MIRELA inhibitor. Will try combination of isosorbide mononitrate and hydralazine. Will start with hydralazine 10 mg 3 times a day and isosorbide mononitrate 30 mg daily for afterload reduction. His INR is supratherapeutic. Target INR between 2 and 3. His shortness of breath is multifactorial with underlying ischemic cardiomyopathy on top of significant COPD due to persistent tobacco abuse. Due to acute renal failure, I will not use spironolactone at this point of time. Continue carvedilol. Once he gets euvolemic change IV diuretic to p.o. torsemide and start somewhere 40-80 mg a day. On telemetry patient has predominantly ventricular paced rhythm at present. He is not interested in discontinuation of smoking. Not interested in further cardiac workup. Consider high-intensity statin as well. At this point of time cardiology service will sign off. Follow up with Dr. Banda in the clinic. Feel free to call us if needs further assistance.
[2019-02-22] MEDS: HYDRALAZINE 10 MG TABLET PO (18:57)
[2019-02-22] MEDS: POTASSIUM CHLORIDE 20 MEQ TAB PO (20:45)
[2019-02-23] VITALS (15 sets, daily range): BP systolic 96–133; BP diastolic 56–72; PULSE 74–82; RESP 16–21; TEMP 36.6–37; O2SAT 93–97
--- NOTE | 2019-02-23 03:20 | PC.NURSE ---
Addendum entered by Geni Naik R.N. 02/23/19 05:57: Slept most of the shift. Sat 96%; continues on 0.5L/min oxygen. Denies any pain. Original Note: Patient very pleasant and cooperative. Mostly oriented. Had incorrect day/year and still states he is in [place] but does know he is in the hospital. Breath sounds with inspiratory/expiratory rhonchi and scattered expiratory wheezes. Has moist sounding non productive cough; intermittent. Oxygen at 0.5L/min with sat currently at 94%. HRR and was v-paced on 0000 telemetry reading. Denies nausea. BT hyperactive. Perineal area, groins and inner thighs with redness/rashy appearance; denies pain or itching. Indwelling catheter is patent with clear selvin urine. Able to turn himself in bed. Not out of bed this shift but reportedly up yesterday with walker and 1 assist due to weakness. Edema decreased but still has 2+ in bilateral feet extending to lower calf. Refusing SCD's tonight stating he can't sleep with them on. Denies pain. Fall risk score is high and bed alarm is activated.
[2019-02-23] MEDS: HYDRALAZINE 10 MG TABLET PO ×3 (05:45→21:39)
[2019-02-23] MEDS: ISOSORBIDE MONONITRATE ER 30 MG TABLET PO (05:45)
[2019-02-23 06:22] LABS: Add Manual Diff / Slide Review NO; Basophils Absolute Auto 100 /uL (0-100); Basophils Percent Auto 0.9 % (0-2); Eosinophils Absolute Auto 300 /uL (0-450); Eosinophils Percent Auto 2.7 % (2-4); Hematocrit 38.5 % (41-53); Hemoglobin 12.6 g/dL (13.5-17.5); Lymphocytes Absolute Auto 1000 /uL (1100-4500); Lymphocytes Percent Auto 10.3 % (25-40); Mean Corpuscular HGB Conc 32.7 % (30-36); Mean Corpuscular Volume 85.7 fL (80-100); Monocytes Absolute Auto 1200 /uL (0-900); Monocytes Percent Auto 12.1 % (3-14); Neutrophils Absolute Auto 7100 /uL (1500-7000); Platelet Count 99 X10^3/uL (150-400); Red Cell Distribution Width 16.7 % (11.6-14.8); White Blood Cell Count 9.6 X10^3/uL (4.5-11.0)
[2019-02-23 06:30] LABS: INR 3.3 (0.9-1.3); Prothrombin Time 38.7 SECONDS (10.1-12.7)
[2019-02-23 06:34] LABS: BUN Creatinine Ratio 28.8 (6-22); Blood Urea Nitrogen 72 mg/dL (9-20); Calcium 7.9 mg/dL (8.4-10.2); Carbon Dioxide 32 mmol/L (22-32); Chloride 99 mmol/L (98-107); Estimated Glomerular Filt Rate 24.8 mL/min (>60); Glucose 95 mg/dL (80-110); HEMOLYSIS < 15 (0-50); Potassium 3.7 mmol/L (3.4-5.1); Sodium 139 mmol/L (137-145)
[2019-02-23] MEDS: CARVEDILOL 25 MG TABLET 37.5 MG PO ×2 (08:52→21:42)
[2019-02-23] MEDS: SODIUM CHLORIDE 0.9% FLUSH 10 ML IV ×2 (08:52→21:41)
--- NOTE | 2019-02-23 08:52 | P.PN_ITS ---
Subjective Date Patient Seen: 02/23/19 Time Patient Seen: 08:43 Interval history: Says he is feeling fine. Denies any pain, dyspnea about the same, coughing also. Appetite okay, eager for home. Reviewed status with care management, they have arranged for hospice visit a little later this morning they will discuss long-term planning, hopefully with and family available. Sounds like it would be yin to consider SNF at least at 1st if not longer term given the patient's overall health status. Pain as if he was a bit stronger. Sounds like care management has had some concerns about 's expectations she thought we would be able to provide multimedia developer home care but simply not the case. It should be resolvable. Exam Vital Signs (past 8 hours): - 02/23/19 03:18 02/23/19 05:45 02/23/19 07:45 Temperature 98.3 F 98.4 F Pulse Rate 75 75 Respiratory Rate 16 20 Blood Pressure 133/71 103/63 Pulse Oximetry 94 96 97 02/23/19 07:55 Temperature Pulse Rate Respiratory Rate Blood Pressure Pulse Oximetry 96 Oxygen Delivery Method Room Air,Nasal Cannula Oxygen Flow Rate 0.5 Narrative Exam Narrative: Sitting up eating breakfast no acute distress. HEENT unr emarkable neck is benign without jugular venous distention chest is clear heart has a regular rate and rhythm without murmur abdomen is soft nontender nondistended normoactive bowel tones no organomegaly or mass extremities without significant edema neurologically nonfocal. Dictating Objective Labs Result Diagrams: 02/23/19 05:53 02/23/19 05:53 Labs: Laboratory Results - last 24 hr 02/23/19 02/23/19 02/23/19 05:53 05:53 05:53 WBC 9.6 RBC 4.50 Hgb 12.6 L Hct 38.5 L MCV 85.7 MCH 28.0 MCHC 32.7 RDW 16.7 H Plt Count 99 L Neut % (Auto) 74.0 Lymph % (Auto) 10.3 L [place] % (Auto) 12.1 Eos % (Auto) 2.7 Baso % (Auto) 0.9 Neut # (Auto) 7100 H Lymph # (Auto) 1000 L [place] # (Auto) 1200 H Eos # (Auto) 300 Baso # (Auto) 100 PT 38.7 H INR 3.3 H Sodium 139 Potassium 3.7 Chloride 99 Carbon Dioxide 32 BUN 72 H Creatinine 2.50 H Estimated GFR 24.8 L BUN/Creatinine Ratio 28.8 H Glucose 95 Calcium 7.9 L Assessment & Plan (1) Metabolic encephalopathy: Problem details: largely resolved Current visit: Yes Status: Acute (2) Acute on chronic systolic heart failure: Problem details: improved, will change to orals as per cardiol Current visit: Yes Status: Chronic (3) Paroxysmal atrial fibrillation: Problem details: sinus today Current visit: Yes Status: Chronic (4) Acute on chronic respiratory acidosis: Problem details: improved, still with O2 demand Current visit: No Status: Chronic (5) Ischemic cardiomyopathy: Problem details: stable Current visit: Yes Status: Chronic (6) Peripheral arterial disease: Problem details: stable Current visit: Yes Status: Chronic (7) COPD (chronic obstructive pulmonary disease): Problem details: stable Current visit: Yes Status: Acute (8) Acute renal failure: Problem details: stable Qualifiers: Acute renal failure type: unspecified Qualified Code(s): N17.9 - Acute kidney failure, unspecified Current visit: No Status: Acute (9) Biventricular automatic implantable cardioverter defibrillator in situ: Problem details: stable Current visit: Yes Status: Chronic Assessment & Plan narrative: Largely resolved. But still quite frail at considerable risk. I will switch to oral diuretic today and see how that works overnight he really else the same at this point anticipating transfer to SNF in the morning and possibly home with hospice after that. Those issues will be worked out I think today. Time Spent With Patient Time with patient: 25 - 35 minutes
[2019-02-23] MEDS: TORSEMIDE 10 MG TABLET 40 MG PO (08:57)
[2019-02-23] MEDS: CLOPIDOGREL 75 MG TABLET PO (08:57)
--- NOTE | 2019-02-23 11:56 | CM.DPC ---
Addendum entered by Margaret Collazo LPN 02/23/19 12:11: of note: tomorrow is pt's birthday. Original Note: DCP: continued: discussed case with Dr. Rodriguez this morning as planned. He readily agrees with initial plan of [facility], says probable tomorrow and with home after that with pvt caregivers and prn family support. hospice vs HH to be determined at the snf level. [facility] Neyda did do an info visit this morning and will hold onto this in case of need in future. Cardiology consult and Dr. Rodriguez's progress note for today are faxed to [facility] now to include in their information on this pt. Met at length with pt, his Ashli and Ashli's daughter Zuleyka. Pt initially expressing doubt re the [facility] plan but after much discussion is agreeable to same. He understands that this is Dr. Rodriguez's plan for him before he returns home and he is pleased that he has full insurance coverage for same. Caregiver agency resources are provided to Ashli and Zuleyka and they will look into this. They will also be looking at the [facility] team to help further with this. Ashli will not be able to be here tomorrow morning but will wait at home for a phone call for the DCPlanner on tomorrow to give her details of the d/c. She will then see pt over at [facility]. All are aware that [facility] will send a w/c van to take pt to [facility]. Elda/[facility] did stop by to see pt after Ashli and Zuleyka had gone. He remained agreeable to the plan for [facility] tomorrow. If pt is not ready tomorrow, [facility] will hold the bed. PASRR: completed and faxed to [facility] in prep for the d/c.
--- NOTE | 2019-02-23 12:44 | PC.NURSE ---
Addendum entered by Miley Mcleod R.N. 02/23/19 14:15: hawk area, bilateral groin ans part of scrotum redness, skin intact. Area cleansed, non-tender, barrier cream applied. Catheter care done. Original Note: Day Shift- Pt alert and oriented to self, [facility], February 1999. I fell and hit my head. Did not realize it was his birthday tomorrow. High fall risk precautions in place, bed/chair alarm used. pt refused OOB this AM for breakfast. Pt originally refused and lots of encouragement provided to get pt OOB at 1245 to chair with 1PA using gait belt and walker. Pt's Ashli and daughter spoke with Neyda from [facility] around 1030. O2 sat 96% on 0.5L NC this AM, removed O2 tubing and pt placed on RA, upon reassessment, O2 sat 93-95%. When getting pt OOB sitting on side of bed transferring to recliner chair in room, O2 sat on RA briefly decreased to 87% then increased to 92% once settled into chair.
--- NOTE | 2019-02-23 15:07 | PT.IPTN ---
Current Diagnoses Acidosis (02/21/19) Metabolic encephalopathy (02/21/19) Ischemic cardiomyopathy (02/21/19) Paroxysmal atrial fibrillation (02/21/19) Acute on chronic systolic (congestive) heart failure (02/21/19) Peripheral vascular disease, unspecified (02/21/19) Chronic obstructive pulmonary disease, unspecified (02/21/19) Acute kidney failure, unspecified (02/21/19) Presence of automatic (implantable) cardiac defibrillator (02/21/19) Physical Therapy Treatment Note M2 PT-IP Current Condition Start: 02/22/19 11:12 Freq: NEEDED Status: Active Protocol: Document 02/22/19 10:10 HH (Rec: 02/22/19 11:35 [id number]) Physical Therapy Current Condition Current Condition Evaluation Date 02/22/19 Treatment Diagnosis GLF, hypercapnia, CHF, impaired gait and activity tolerance Onset Date 02/21/19 Weight Bearing Status Weight Bearing Status Weight Bear as Tolerated M3 PT-IP Subjective Start: 02/22/19 11:12 Freq: NEEDED Status: Active Protocol: Document 02/23/19 15:05 GGD (Rec: 02/23/19 15:06 GGD [id number]) Subjective Physical Therapy Visit Type Type Patient Refusal Notes Pt refused states just got back to bed and would like to wait.
[2019-02-24] VITALS (8 sets, daily range): BP systolic 105–117; BP diastolic 64–69; PULSE 74–76; RESP 18–20; TEMP 36.4–36.7; O2SAT 93–98
[2019-02-24] MEDS: ISOSORBIDE MONONITRATE ER 30 MG TABLET PO (06:03)
[2019-02-24] MEDS: HYDRALAZINE 10 MG TABLET PO (06:03)
[2019-02-24 06:05] LABS: Add Manual Diff / Slide Review NO; Basophils Absolute Auto 100 /uL (0-100); Basophils Percent Auto 0.7 % (0-2); Eosinophils Absolute Auto 200 /uL (0-450); Eosinophils Percent Auto 2.3 % (2-4); Hematocrit 37.4 % (41-53); Hemoglobin 12.2 g/dL (13.5-17.5); Lymphocytes Absolute Auto 1100 /uL (1100-4500); Lymphocytes Percent Auto 11.6 % (25-40); Mean Corpuscular HGB Conc 32.7 % (30-36); Mean Corpuscular Hemoglobin 28.1 PG (26-34); Mean Corpuscular Volume 85.9 fL (80-100); Monocytes Absolute Auto 1100 /uL (0-900); Monocytes Percent Auto 11.4 % (3-14); Neutrophils Absolute Auto 7200 /uL (1500-7000); Platelet Count 95 X10^3/uL (150-400); Red Blood Cell Count 4.35 X10^6/uL (4.5-5.9); Red Cell Distribution Width 16.5 % (11.6-14.8); White Blood Cell Count 9.7 X10^3/uL (4.5-11.0)
[2019-02-24 06:06] LABS: INR 2.2 (0.9-1.3); Prothrombin Time 25.8 SECONDS (10.1-12.7)
[2019-02-24 06:12] LABS: BUN Creatinine Ratio 27.6 (6-22); Blood Urea Nitrogen 69 mg/dL (9-20); Calcium 7.9 mg/dL (8.4-10.2); Carbon Dioxide 33 mmol/L (22-32); Chloride 99 mmol/L (98-107); Estimated Glomerular Filt Rate 24.8 mL/min (>60); Glucose 94 mg/dL (80-110); HEMOLYSIS < 15 (0-50); Potassium 3.7 mmol/L (3.4-5.1); Sodium 139 mmol/L (137-145)
[2019-02-24] MEDS: CLOPIDOGREL 75 MG TABLET PO (09:15)
[2019-02-24] MEDS: TORSEMIDE 10 MG TABLET 40 MG PO (09:15)
[2019-02-24] MEDS: CARVEDILOL 25 MG TABLET 37.5 MG PO (09:15)
[2019-02-24] MEDS: SODIUM CHLORIDE 0.9% FLUSH 10 ML IV (09:15)
--- NOTE | 2019-02-24 09:21 | PM.DS.1 ---
History of Present Illness Date Patient Seen: 02/24/19 Time Patient Seen: 09:22 Chief complaint: GLF Narrative: See H&P Discharge Providers Date of admission: 02/21/19 11:07 Discharge Date: 02/24/19 Primary care physician: Mat Rodriguez MD Consults: 02/21/19 07:03 Consult to Respiratory Therapy Evaluate & Treat Comment: Physician Instructions: Evaluate and treat 02/21/19 11:55 Consult to Discharge Planning Routine Comment: 02/21/19 12:20 Consult to Respiratory Therapy Evaluate & Treat Comment: Physician Instructions: Evaluate and treat 02/21/19 13:35 Consult to Dietitian, Adult Routine Comment: Reason For Exam: high risk julian score 02/22/19 07:50 Consult to Physician Routine Comment: Consulting Provider: Narinder Swenson Reason for consultation: chf with recurrent admission Has provider been notified: Yes 02/22/19 07:59 Consult to Physical Therapy Evaluate & Treat Comment: Physician Instructions: Evaluate and Treat Discharge provider: Mat Rodriguez MD Summary Discharge Diagnosis: One. Metabolic encephalopathy suspected due to carbon dioxide excess perhaps other factors. Now resolved. 2. Acute respiratory failure with history of more chronic lung disease 3. Acute on chronic hypercapnic respiratory acidosis, this was present on admission and suspected more chronically otherwise has improved somewhat. 4. Ischemic cardiomyopathy by history 5. Congestive heart failure, systolic, acute on chronic 6. Paroxysmal atrial fibrillation, on rate control and anticoagulation 7. COPD chronic persistent 8. BPH with outlet obstruction 9. Renal failure chronic stage III Hospital Course: Patient was admitted after found acutely severely confused, appeared very ill, transported to ER and evaluated. Evaluation indicated multiple significant factors including a very poor blood gas with marked elevation of carbon dioxide, was not clear that he would survive. Oxygen was placed diuresis and other treatments were instituted and he began to recover. His mental status improved and other factors also were significantly improved, he was evaluated by Cardiology, closely followed by respiratory therapy. Also evaluated by Physical therapy and Occupational therapy and showed improvement in each of these areas. By the time of discharge he is awake and alert appropriately conversant needing a small quantity of oxygen to maintain good O2. Discussion with family along the way indicated he had been increasingly difficult to care for at home. It was felt that a short time in SNF could be helpful, is also fair discussion of need for hospice. Patient has multiple significant medical issues and while they are more stable at this time long-term prognosis does not appear great. Status at Discharge Cognitive/behavioral status at discharge: oriented and at baseline, oriented Functional status at discharge: uses cane/walker Overall status at discharge: patient is not back to baseline Time Spent with Patient Greater than 30 minutes Time spent discussing smoking cessation with patient: 3 to 10 minutes Exam Vital Signs (past 8 hours): - 02/24/19 03:28 02/24/19 07:58 02/24/19 09:08 Temperature 97.8 F 97.5 F L Pulse Rate 75 76 Respiratory Rate 19 18 Blood Pressure 117/69 113/68 Pulse Oximetry 98 94 93 02/24/19 09:13 02/24/19 09:16 Temperature Pulse Rate 74 Respiratory Rate 18 Blood Pressure Pulse Oximetry 93 94 Oxygen Delivery Method Room Air Oxygen Flow Rate 1 Narrative Exam Narrative: No obvious distress sitting up in bed. HEENT unremarkable neck is benign without jugular venous distention chest is clear to auscultation heart has a regular rate and rhythm with a 2/6 systolic murmur. Abdomen soft nontender nondistended normoactive bowel tones extremities show some edema neurologically nonfocal Objective Labs Result Diagrams: 02/24/19 05:47 02/24/19 05:47 Labs: Laboratory Results - last 24 hr 02/24/19 02/24/19 02/24/19 05:47 05:47 05:47 WBC 9.7 RBC 4.35 L Hgb 12.2 L Hct 37.4 L MCV 85.9 MCH 28.1 MCHC 32.7 RDW 16.5 H Plt Count 95 L Neut % (Auto) 74.0 Lymph % (Auto) 11.6 L [place] % (Auto) 11.4 Eos % (Auto) 2.3 Baso % (Auto) 0.7 Neut # (Auto) 7200 H Lymph # (Auto) 1100 [place] # (Auto) 1100 H Eos # (Auto) 200 Baso # (Auto) 100 PT 25.8 H D INR 2.2 H Sodium 139 Potassium 3.7 Chloride 99 Carbon Dioxide 33 H BUN 69 H Creatinine 2.50 H Estimated GFR 24.8 L BUN/Creatinine Ratio 27.6 H Glucose 94 Calcium 7.9 L Discharge Plan Discharge Plan Patient Disposition: SNF Transfer to: [facility] Under care of provider: Jennifer Transportation: Wheelchair Consult as needed: Dental, Hearing, Mental health, Podiatry and Vision Discharge comment: Frail, multiple issues, poss hospice on d/c I certify the postop hospital fdc care is medically necessary on a continuing basis for any conditions for which he/ she received care during this hospitalization.: Yes The receiving facility has agreed to accept transfer and provide medical treatment.: Yes Discharge Med Rec/Prescriptions Prescriptions: New hydralazine 10 mg Tablet 10 mg PO Q8HR Qty: 90 RF: 5 isosorbide mononitrate 30 mg Tablet Extended Release 24 Hr 30 mg PO QACBREAK Qty: 30 RF: 5 torsemide 10 mg Tablet 40 mg PO DAILY Qty: 30 RF: 0 nystatin 100,000 unit/gram powder 1 applictn TOP BID Qty: 30 RF: 0 Continued carvedilol [Coreg] 25 MG tablet 37.5 mg PO BID Qty: 0 RF: 0 clopidogrel [Plavix] 75 MG tablet 75 mg PO QAM Qty: 0 RF: 0 warfarin 5 mg tablet 5 mg PO 5XW RF: 0 albuterol sulfate 90 mcg/actuation HFA aerosol inhaler 2 puff Inhalation Q4H PRN (Reason: Shortness Of Breath) RF: 0 alfuzosin 10 mg tablet extended release 24 hr 10 mg PO DAILY RF: 0 pregabalin 75 mg capsule 75 mg PO BID RF: 0 cetirizine 10 mg Tablet 10 mg PO DAILY PRN (Reason: Allergy Symptoms) RF: 0 warfarin 5 mg tablet 2.5 mg PO 2XW RF: 0 Discontinued furosemide 20 mg tablet 40 mg PO DAILY RF: 0 Follow up/Referrals: Mat Rodriguez MD [Primary Care Provider] - Discharge Health Status Multidrug resistant organism: No MDRO MDRO Verified by culture: Yes Precautions: [place] Provider Discharge Instructions Diet: Diet as Tolerated Liquid consistency: Normal/Thin Food texture: Regular Oxygen: nasal canula to keep O2 > 91% Skin/Wound/Dressing Care Report to your healthcare provider any signs of infection, such as:: chills, fever, night sweats, increased pain, unusual drainage and unusual redness Special Rehabilitation Services Reason for rehabilitation: Recovery r/t decondition Rehab type: Physical therapy and Occupational therapy Visit Report/Discharge Packet Instructions: Kidney Failure, Heart Failure, DI for Kidney Failure, DI for Heart Failure, Torsemide, Isosorbide Mononitrate (By mouth) Discharge Data Primary Care Provider: Mat Rodriguez Attending Provider: Landon Mckenzie Admit Date/Time: 02/21/19 11:07
--- NOTE | 2019-02-24 10:31 | CM.DPC ---
DCP Cont: Patient will be going to [facility] today. Spoke to Dr. Rodriguez this morning, and let him know that patient is accepted today. He has written orders. Faxed discharge summary, PASSR, and med list to [facility]. Updated Anamika at [facility]. He stated that he would call back with a time. Updated patient's , Ashli. Let her know that this correctional case records supervisor would let her know a time of pick-up. It's patient's birthday today, and she is planning on bringing him a cake there. Spoke to patient about [facility]. He stated, I really want to go home, it's my birthday, and I want to celebrate it there. Let him know that his would be by, and going to [facility] would be temporary, and to get him stronger so he is able to go home. Patient stated, he's feeling better today. P: Patient should be going to [facility] today, pending time of picking crew supervisor. Erin Varela RN/Service Restorer Emergency
--- NOTE | 2019-02-24 11:00 | PT.IPTN ---
Current Diagnoses Tinea cruris (02/21/19) Acidosis (02/21/19) Metabolic encephalopathy (02/21/19) Ischemic cardiomyopathy (02/21/19) Paroxysmal atrial fibrillation (02/21/19) Acute on chronic systolic (congestive) heart failure (02/21/19) Peripheral vascular disease, unspecified (02/21/19) Chronic obstructive pulmonary disease, unspecified (02/21/19) Acute kidney failure, unspecified (02/21/19) Presence of automatic (implantable) cardiac defibrillator (02/21/19) Physical Therapy Treatment Note M2 PT-IP Current Condition Start: 02/22/19 11:12 Freq: NEEDED Status: Active Protocol: Document 02/22/19 10:10 HH (Rec: 02/22/19 11:35 [email or web address]) Physical Therapy Current Condition Current Condition Evaluation Date 02/22/19 Treatment Diagnosis GLF, hypercapnia, CHF, impaired gait and activity tolerance Onset Date 02/21/19 Weight Bearing Status Weight Bearing Status Weight Bear as Tolerated M3 PT-IP Subjective Start: 02/22/19 11:12 Freq: NEEDED Status: Active Protocol: Document 02/24/19 11:05 GGD (Rec: 02/24/19 11:26 GGD [email or web address]) Subjective Physical Therapy Visit Type Type Treatment Note Visit Start Time 10:50 Visit Stop Time 11:05 Total Visit Minutes 15 Number of HYDROMETEOROLOGICAL TECHNICIAN Visits 1 Physical Therapy Visit Comments Patient Comments Pt states he needs to use the bathroom. M4 PT-IP Mobility and Gait Start: 02/22/19 11:12 Freq: NEEDED Status: Active Protocol: Document 02/24/19 11:05 GGD (Rec: 02/24/19 11:26 GGD [email or web address]) PT-Transfer Assessment Sit to and From Stand Sit to and from Stand Standby Assistance Use of Upper Extremities Equipment Transfer Assistive Device Gait Belt Front Wheeled Walker Orthotic/Prosthetic Devices or Brace: No Transfers Transfer Destination Toilet Transfer Ability Level of Assist Contact Guard Assistance Gait Assessment Gait Gait Assistance Required: Contact Guard Assist Distance (Feet) 10 Able to Maintain Weight Bearing Status Yes During Gait Assistive Devices Assistive Device Gait Belt Front Wheeled Walker Orthotic/Prosthetic Devices or Brace: No Gait Deviations General Gait Pattern Decreased Stride Length Decreased Feet Clearance Factors Limiting Gait Function Factors Limiting Gait Function Decreased Activity Tolerance Decreased Strength Poor Balance Poor Safety Awareness Respiratory Distress Comments Gait Comments CURING SUPERVISOR informed pt in bathroom with call light in reach. M5 PT-IP Objective Assessments Start: 02/22/19 11:12 Freq: NEEDED Status: Active Protocol: Document 02/22/19 10:10 (Rec: 02/22/19 11:35 [email or web address]) Orientation Orientation/Cognition Level of Alertness Alert Orientation Name Age Birthday Month Date Day of Week Place Situation Language Function Ability No Deficits Noted Safety Awareness Understands Safety Issues Decreased Safety Awareness Memory Description No Deficits Noted Comments pt often misplaced his FWW during turns Gross Range of Motion Upper Extremity ROM Assessment Within Functional Limits Lower Extremity ROM Assessment Within Functional Limits Strength Upper Extremity Strength Assessment Within Functional Limits Lower Extremity Strength Assessment Bilaterally Impaired Comments Strength Comments 4-/5 B LE strength Coordination Assessment Gross Coordination Gross Coordination WNL Assessment Finger to Nose Test Normal Performance Pronation/Supination Test Normal Performance Sensation Assessment Sensation Gross Sensation WNL Light Touch Intact Proprioception (Position) Intact Muscle Tone Muscle Tone WNL Yes M6 PT-IP Treatment Start: 02/22/19 11:12 Freq: NEEDED Status: Active Protocol: Document 02/22/19 10:10 (Rec: 02/22/19 11:35 [email or web address]) Physical Therapy Treatment Education Education Provided Safety M7 PT-IP Assessment and Plan Start: 02/22/19 11:12 Freq: NEEDED Status: Active Protocol: Document 02/24/19 11:05 GGD (Rec: 02/24/19 11:26 GGD [email or web address]) PT Summary Assessment and Plan Summary Assessment Summary Pt was SBA with mobility. He needed cues for safety with FWW. He had no LOB with mobility. He would benefit from SNF rehab. Frequency of Treatment Frequency Of Treatment Once a Day Treatment Plan Physical Therapy Treatment Plan Bed Mobility Training Transfer Training Gait Training Therapeutic Exercise Balance Retraining Discharge Planning Recommendations To Nursing Amount of Assist Needed 1 Person Assist Discharge Recommendations PT Discharge Recommendations SNF Rehab
--- NOTE | 2019-02-24 11:00 | PC.NURSE ---
Addendum entered by Kameron Guardado R.N. 02/24/19 12:52: patient has urinated x2 s/p concepcion removal. report called to Rachel at [facility]. all questions answered to satisfaction. Original Note: DELBERT MENENDEZ'D AT 0900. TOLERATED WELL. URINAL AT BEDSIDE. ASSISTED UP TO RECLINER. NOTIFIED OF GROIN RASH. STATED HE WOULD ORDER NYSTATIN FOR AT SNF. PATIENT WISHED A HAPPY BIRTHDAY. HE IS APPROPRIATE WITH CARE. LOTION APPLIED TO DRY LEGS AND FEET.
== END 2019-02-24 13:30 | DRG 291 ==
LOC: ED 10:21 → AC 11:08
PROVIDERS: Admitting Provider Family Medicine; Emergency Provider Emergency Medicine; PCP Family Medicine; Visit Provider Family Medicine
DX: I50.23 Acute on chronic systolic (congestive) heart failure (principal); J96.02 Acute respiratory failure with hypercapnia; G93.41 Metabolic encephalopathy; N17.9 Acute kidney failure, unspecified; E87.2 Acidosis; N13.8 Other obstructive and reflux uropathy; J44.9 Chronic obstructive pulmonary disease, unspecified; I25.5 Ischemic cardiomyopathy; I48.0 Paroxysmal atrial fibrillation; Z79.01 Long term (current) use of anticoagulants; I25.10 Atherosclerotic heart disease of native coronary artery without angina pectoris; W06.XXXA Fall from bed, initial encounter; Y92.019 Unspecified place in single-family (private) house as the place of occurrence of the external cause; Z87.891 Personal history of nicotine dependence; Z95.810 Presence of automatic (implantable) cardiac defibrillator; I73.9 Peripheral vascular disease, unspecified; N40.1 Benign prostatic hyperplasia with lower urinary tract symptoms
CPT/HCPCS: 36415; 36600; 70450; 71045; 80048; 80053; 81003; 81015; 82550; 82805; 83735; 83880; 84484; 85025; 85610; 85730; 87400; 93005; 94640; 94760; 94762; 96374; 97162; 97530; 99285; J1940

== ENCOUNTER → 2019-03-05 11:56 | Outpatient (REF) | payer MEDICARE, OTHER, SELFPAY ==
[2019-02-11 22:24] VITALS: RESP 24; O2SAT 95
[2019-02-21 13:39] VITALS: BMI 27.6
[2019-03-05 12:40] LABS: INR 2.7 (0.9-1.3); Prothrombin Time 31.8 SECONDS (10.1-12.7)
[2019-03-05 12:50] LABS: BUN Creatinine Ratio 22.3 (6-22); Blood Urea Nitrogen 58 mg/dL (9-20); Calcium 8.3 mg/dL (8.4-10.2); Carbon Dioxide 37 mmol/L (22-32); Chloride 100 mmol/L (98-107); Estimated Glomerular Filt Rate 23.7 mL/min (>60); Glucose 89 mg/dL (80-110); HEMOLYSIS 25 (0-50); Potassium 4.2 mmol/L (3.4-5.1); Sodium 146 mmol/L (137-145)
== END ==
LOC: LAB 11:56
PROVIDERS: PCP Family Medicine
DX: I48.91 Unspecified atrial fibrillation (principal); J96.90 Respiratory failure, unspecified, unspecified whether with hypoxia or hypercapnia; I50.9 Heart failure, unspecified; N18.9 Chronic kidney disease, unspecified
CPT/HCPCS: 36415; 80048; 85610

== ENCOUNTER 2019-03-05 12:35 | Emergency (ER) | payer MEDICARE, OTHER, SELFPAY ==
[2019-02-11 22:24] VITALS: RESP 24; O2SAT 95
[2019-02-21 13:39] VITALS: BMI 27.6
[2019-03-05 12:35] VITALS: BP 112/56; PULSE 74; RESP 14; TEMP 37.2; O2SAT 95
--- NOTE | 2019-03-05 12:49 | DI.RAD.S_ITS ---
PROCEDURE: XR CHEST 1V INDICATIONS: shortness of breath TECHNIQUE: One view of the chest was acquired. COMPARISON: [facility], , XR CHEST 1V, 02/21/2019, 7:08. FINDINGS: Surgical changes and devices: Right-sided dual-lead ICD. Lungs and pleura: Low lung volumes with diffuse reticulation throughout both lung martinez. Retrocardiac atelectatic changes. Probable small bilateral pleural effusions. No pleural effusions or pneumothorax. Mediastinum: The heart is enlarged. Mediastinal contour is stable. Central vasculature is indistinct. Bones and chest wall: No suspicious bony lesions. Overlying soft tissues appear unremarkable. IMPRESSION: 1. Low lung volumes with coarse interstitial markings, fibrosis plus or minus interstitial edema. 2. Enlarged heart with pacemaker present and indistinct central vessels suggests CHF. 3. Probable small bilateral pleural effusions, new since the prior study. Dictated by: Ilda Zavala M.D. on 03/05/2019 at 13:18 Approved by: Ilda Zavala M.D. on 03/05/2019 at 13:22
--- NOTE | 2019-03-05 13:00 | PC.NURSE ---
Spoke w/ [facility]. Pt is going home w/ hospice care. [facility] is to transport pt from ED to home where home equipment of oxygen as well as hospital bed has been delivered. [facility] @ [facility] has already written prescriptions for morphine and ativan. It is unclear whether can care for patient at home. Will discuss with her when she arrives or by phone. Hospice is not available until tomorrow to admit.
--- NOTE | 2019-03-05 13:04 | ED.SOB ---
HPI - SOB/Dyspnea <Sylvie Yusuf PA-C - Last Filed: 03/05/19 16:03> General Chief Complaint: Shortness of Breath/Dyspnea Stated Complaint: Tremors, Hypoxia Time Seen by Provider: 03/05/19 12:47 Source: patient Mode of arrival: ambulatory Limitations: no limitations History of Present Illness This 84-year-old male comes from clinic where he was evaluated for the gradually worsening weakness and shakes described as clonus on evaluation today. The nurse practitioner who saw him noted that this seemed to be a gradual decline. He has multiple comorbidities including O2 dependent CHF, COPD, cardiomyopathy, and chronic renal failure. His he was just discharged from hospital here last week. They discussed palliative care/hospice and arrangements were made for this including prescriptions given and evaluation pending. He was given 0.5 mg of Ativan and the clonus seemed to largely resolved at the clinic and patient appeared comfortable. His decided that he should be evaluated here prior to enrolling in hospice. Patient is resting comfortably when I go to see him. He states that he is not having any pain. He states his breathing is ?good? today. He states that he was shaking earlier but now that has resolved after the medication and he states he is very comfortable. He denies any new symptoms today other than the shaking. Related Data Home Medications Medication Instructions Recorded Confirmed carvedilol [Coreg] 37.5 mg PO BID #0 06/24/13 03/05/19 clopidogrel [Plavix] 75 mg PO QAM #0 06/24/13 03/05/19 albuterol sulfate 2 puff INHALATION Q4H PRN 02/11/19 03/05/19 alfuzosin 10 mg PO DAILY 02/11/19 03/05/19 cetirizine 10 mg PO DAILY PRN 02/11/19 03/05/19 pregabalin 75 mg PO BID 02/11/19 03/05/19 warfarin 5 mg PO DAILY 02/11/19 03/05/19 bisacodyl 5 - 10 mg PO PRN PRN 03/05/19 03/05/19 bisacodyl 10 mg CA PRN PRN 03/05/19 03/05/19 hydralazine 10 mg PO TID 03/05/19 03/05/19 magnesium hydroxide [Milk of 30 ml PO PRN PRN 03/05/19 03/05/19 Magnesia] oseltamivir [Tamiflu] 30 mg PO Q OTHER DAY 03/05/19 03/05/19 sodium phosphates [Fleet Enema] 1 ea CA PRN PRN 03/05/19 03/05/19 torsemide 40 mg PO DAILY 03/05/19 03/05/19 Previous Rx's Medication Instructions Recorded isosorbide mononitrate 30 mg PO QACBREAK #30 tab 02/24/19 nystatin 1 applictn TOP BID #30 gram 02/24/19 lorazepam 0.5 mg SL Q2HR PRN #15 ml 03/05/19 morphine concentrate 5 mg SL Q1-2H PRN #30 ml 03/05/19 Allergies Allergy/AdvReac Type Severity Reaction Status Date / Time aspirin Allergy Verified 03/05/19 12:45 Review of Systems <Sylvie Yusuf PA-C - Last Filed: 03/05/19 16:03> Review of Systems ROS Unobtainable: All systems reviewed & are unremarkable except as noted in HPI and below PFSH <Sylvie Yusuf PA-C - Last Filed: 03/05/19 16:03> Medical History (Updated 03/05/19 @ 16:02 by Sylvie Yusuf PA-C) Chronic renal failure (Acute) Peripheral arterial disease (Chronic) Biventricular automatic implantable cardioverter defibrillator in situ (Chronic) Ischemic cardiomyopathy (Chronic) CRF (chronic renal failure) (Chronic) Cardiomyopathy (Chronic) Atrial fibrillation (Chronic) CHF (congestive heart failure) (Chronic) COPD (chronic obstructive pulmonary disease) (Chronic) Social History household members: spouse Smoking Status: Current every day smoker Social History household members: spouse Smoking Status: Current every day smoker Exam <Sylvie Yusuf PA-C - Last Filed: 03/05/19 16:03> Narrative Exam Narrative: GENERAL APPEARANCE: Patient resting comfortably, in no distress. NECK/THYROID: Neck supple, no JVD. LUNGS: Breath sounds are a bit coarse with generalized expiratory crackles, no wheezes or rhonchi, no cough on exam HEART: Regular rate and rhythm without murmur, normal S1, S2, no S3 or S4. ABDOMEN: Soft, NT, ND, + BS x 4 quadrants EXTREMITIES: No cyanosis or edema. extremities are warm NEUROLOGIC: Sleepy but easily awakened, appropriate responses. No tremulousness or clonus noted Initial Vital Signs Initial Vital Signs: Vital Signs Temperature 99.0 F 03/05/19 12:35 Pulse Rate 74 03/05/19 12:35 Respiratory Rate 14 03/05/19 12:35 Blood Pressure 112/56 L 03/05/19 12:35 Pulse Oximetry 95 03/05/19 12:35 <Patricio Matos DO - Last Filed: 03/05/19 17:20> Initial Vital Signs Initial Vital Signs: Vital Signs Temperature 99.0 F 03/05/19 12:35 Pulse Rate 74 03/05/19 12:35 Respiratory Rate 14 03/05/19 12:35 Blood Pressure 112/56 L 03/05/19 12:35 Pulse Oximetry 95 03/05/19 12:35 Course <Sylvie Yusuf PA-C - Last Filed: 03/05/19 16:03> Additional Information: I spoke with Kar, nurse practitioner from [facility] who has appropriately helped direct patient in obtaining hospice care as he has been in and out of the hospital very frequently recently and both he and his wish to avoid repeated hospitalizations. She had already given a dose of Ativan today with resolution of patient's tremulousness. He reported feeling comfortable and has not been having any pain. chest x-ray does show a small amount of pleural fluid changed from last week which is not unexpected given his chronic conditions, no new pneumonia or other new findings on his lab work. His daughter is here and medication prescriptions have been provided for overnight. Hospice supplies are already at the house and they will be out to evaluate in the morning. Ambulance transport home arranged as patient is too weak to sit on his own. Catheter placed as he has been too weak to get up and to bathroom comfortably. Palliative care health care social worker Elidia has spoken with patient's daughter who is currently here and will be assisting with home care. Orders Ordered: ED Orders 03/05/19 12:49 Chest [XR chest 1V] Stat Vital Signs - 8 hr 03/05/19 12:35 03/05/19 13:24 03/05/19 13:51 Temperature 99.0 F Pulse Rate 74 74 75 Respiratory Rate 14 17 22 Blood Pressure 112/56 L Blood Pressure [Right Arm] 105/57 L 109/78 Pulse Oximetry 95 99 89 L 03/05/19 14:33 03/05/19 15:44 Temperature Pulse Rate 75 74 Respiratory Rate 15 18 Blood Pressure Blood Pressure [Right Arm] 108/59 L 104/70 Pulse Oximetry 99 97 <Patricio Matos DO - Last Filed: 03/05/19 17:20> Orders Ordered: ED Orders 03/05/19 12:49 Chest [XR chest 1V] Stat Vital Signs - 8 hr 03/05/19 12:35 03/05/19 13:24 03/05/19 13:51 Temperature 99.0 F Pulse Rate 74 74 75 Respiratory Rate 14 17 22 Blood Pressure 112/56 L Blood Pressure [Right Arm] 105/57 L 109/78 Pulse Oximetry 95 99 89 L 03/05/19 14:33 03/05/19 15:44 Temperature Pulse Rate 75 74 Respiratory Rate 15 18 Blood Pressure Blood Pressure [Right Arm] 108/59 L 104/70 Pulse Oximetry 99 97 MDM - SOB/Dyspnea <Sylvie Yusuf PA-C - Last Filed: 03/05/19 16:03> Lab Data Attestation: I reviewed the patient's lab results. Labs from today: CBC and chemistries without acute change, INR 2.7 Imaging Data Chest x-ray: Radiologist's impression: Sylvie Yusuf PA-C Find Patient Imaging Neal Caal 84 M 1935 ACTIVITY DATE EXAM STATUS AUTHOR 03/05/19 12:49 Signed Ilda Zavala [address] [address] XRay Report Signed Patient: Neal Caal TMR#: [id number] : [id number]:[id number] Age/Sex: 84 / MDate of Service: 03/05/19 Loc: ED Accession Number: [id number] Procedure: XR chest 1V Ordering Provider: Patricio Matos D.O. PROCEDURE: XR CHEST 1V INDICATIONS: shortness of breath TECHNIQUE: One view of the chest was acquired. [facility] FINDINGS: Surgical changes and devices: Right-sided dual-lead ICD. Lungs and pleura: Low lung volumes with diffuse reticulation throughout both lung martinez. Retrocardiac atelectatic changes. Probable small bilateral pleural effusions. No pleural effusions or pneumothorax. Mediastinum: The heart is enlarged. Mediastinal contour is stable. Central vasculature is indistinct. Bones and chest wall: No suspicious bony lesions. Overlying soft tissues appear unremarkable. IMPRESSION: 1. Low lung volumes with coarse interstitial markings, fibrosis plus or minus interstitial edema. 2. Enlarged heart with pacemaker present and indistinct central vessels suggests CHF. 3. Probable small bilateral pleural effusions, new since the prior study. Dictated by: Ilda Zavala M.D. on 03/05/2019 at 13:18 Approved by: Ilda Zavala M.D. on 03/05/2019 at 13:22 Discharge Plan Departure Patient Disposition: Home Clinical Impression: Acute on chronic systolic heart failure, Ischemic cardiomyopathy COPD (chronic obstructive pulmonary disease) Qualifiers: COPD type: unspecified COPD Qualified Code(s): J44.9 - Chronic obstructive pulmonary disease, unspecified Chronic renal failure Qualifiers: Chronic kidney disease stage: stage 3 (moderate) Qualified Code(s): N18.3 - Chronic kidney disease, stage 3 (moderate) Discharge Date/Time: 03/05/19 15:59 Interventions: ED Discharge Assessment Last Done: 03/05/19 15:58 Instructions: Home-Based Palliative Care May Help Patients With Advanced Illness Stay Del Activity Restrictions/Additional Instructions: Given your chronic medical conditions and frequent hospitalizations recently, it is very reasonable that you have elected home based palliative/hospice care. They have advised us that they will be out to your house to do an evaluation in the morning. In the interim, I have given you new prescriptions the to use as needed including lorazepam, which is what you had at clinic today that helped with the shaking. You can use that as needed for shakiness or nerves. I have also given you a prescription for liquid morphine that you can use if you should start to have any pain. since you have taken your medications today, the hospice professionals will review them with you tomorrow and they may have you stop some of your regular medications and will at others as needed to keep you comfortable at home. Prescriptions: New lorazepam 2 mg/mL concentrate 0.5 mg SL Q2HR PRN (Reason: anxiety/agitation) Qty: 15 RF: 0 morphine concentrate 100 mg/5 mL (20 mg/mL) solution 5 mg SL Q1-2H PRN (Reason: acute pain or respiratory distress) Qty: 30 RF: 0 No Action carvedilol [Coreg] 25 MG tablet 37.5 mg PO BID Qty: 0 RF: 0 clopidogrel [Plavix] 75 MG tablet 75 mg PO QAM Qty: 0 RF: 0 isosorbide mononitrate 30 mg Tablet Extended Release 24 Hr 30 mg PO QACBREAK Qty: 30 RF: 5 nystatin 100,000 unit/gram powder 1 applictn TOP BID Qty: 30 RF: 0 torsemide 20 mg Tablet 40 mg PO DAILY RF: 0 oseltamivir [Tamiflu] 30 mg Capsule 30 mg PO Q OTHER DAY RF: 0 hydralazine 10 mg tablet 10 mg PO TID RF: 0 magnesium hydroxide [Milk of Magnesia] 400 mg/5 mL Suspension 30 ml PO PRN PRN (Reason: Constipation) RF: 0 bisacodyl 10 mg Suppository 10 mg CA PRN PRN (Reason: Constipation) RF: 0 Fleet Enema 19-7 gram/118 mL Enema 1 ea CA PRN PRN (Reason: Constipation) RF: 0 bisacodyl 5 mg Tablet,Delayed Release (Dr/Ec) 5 - 10 mg PO PRN PRN (Reason: mild to severe constipation) RF: 0 warfarin 5 mg tablet 5 mg PO DAILY RF: 0 albuterol sulfate 90 mcg/actuation HFA aerosol inhaler 2 puff Inhalation Q4H PRN (Reason: Shortness Of Breath) RF: 0 alfuzosin 10 mg tablet extended release 24 hr 10 mg PO DAILY RF: 0 pregabalin 75 mg capsule 75 mg PO BID RF: 0 cetirizine 10 mg Tablet 10 mg PO DAILY PRN (Reason: Allergy Symptoms) RF: 0 Referrals: Mat Rodriguez MD [Primary Care Provider] - <Patricio Matos DO - Last Filed: 03/05/19 17:20> [facility] Attending Maríaature Attestation: I was immediately available in the department for consultation. Documentation has been reviewed. I agree with assessment and plan.
--- NOTE | 2019-03-05 13:21 | ED_ITS ---
HPI - SOB/Dyspnea <Sylvie Yusuf PA-C - Last Filed: 03/05/19 16:03> General Chief Complaint: Shortness of Breath/Dyspnea Stated Complaint: Tremors, Hypoxia Time Seen by Provider: 03/05/19 12:47 Source: patient Mode of arrival: ambulatory Limitations: no limitations History of Present Illness This 84-year-old male comes from clinic where he was evaluated for the gradually worsening weakness and shakes described as clonus on evaluation today. The nurse practitioner who saw him noted that this seemed to be a gradual decline. He has multiple comorbidities including O2 dependent CHF, COPD, cardiomyopathy, and chronic renal failure. His he was just discharged from hospital here last week. They discussed palliative care/hospice and arrangements were made for this including prescriptions given and evaluation pending. He was given 0.5 mg of Ativan and the clonus seemed to largely resolved at the clinic and patient appeared comfortable. His decided that he should be evaluated here prior to enrolling in hospice. Patient is resting comfortably when I go to see him. He states that he is not having any pain. He states his breathing is ?good? today. He states that he was shaking earlier but now that has resolved after the medication and he states he is very comfortable. He denies any new symptoms today other than the shaking. Related Data Home Medications Medication Instructions Recorded Confirmed carvedilol [Coreg] 37.5 mg PO BID #0 06/24/13 03/05/19 clopidogrel [Plavix] 75 mg PO QAM #0 06/24/13 03/05/19 albuterol sulfate 2 puff INHALATION Q4H PRN 02/11/19 03/05/19 alfuzosin 10 mg PO DAILY 02/11/19 03/05/19 cetirizine 10 mg PO DAILY PRN 02/11/19 03/05/19 pregabalin 75 mg PO BID 02/11/19 03/05/19 warfarin 5 mg PO DAILY 02/11/19 03/05/19 bisacodyl 5 - 10 mg PO PRN PRN 03/05/19 03/05/19 bisacodyl 10 mg OR PRN PRN 03/05/19 03/05/19 hydralazine 10 mg PO TID 03/05/19 03/05/19 magnesium hydroxide [Milk of 30 ml PO PRN PRN 03/05/19 03/05/19 Magnesia] oseltamivir [Tamiflu] 30 mg PO Q OTHER DAY 03/05/19 03/05/19 sodium phosphates [Fleet Enema] 1 ea OR PRN PRN 03/05/19 03/05/19 torsemide 40 mg PO DAILY 03/05/19 03/05/19 Previous Rx's Medication Instructions Recorded isosorbide mononitrate 30 mg PO QACBREAK #30 tab 02/24/19 nystatin 1 applictn TOP BID #30 gram 02/24/19 lorazepam 0.5 mg SL Q2HR PRN #15 ml 03/05/19 morphine concentrate 5 mg SL Q1-2H PRN #30 ml 03/05/19 Allergies Allergy/AdvReac Type Severity Reaction Status Date / Time aspirin Allergy Verified 03/05/19 12:45 Review of Systems <Sylvie Yusuf PA-C - Last Filed: 03/05/19 16:03> Review of Systems ROS Unobtainable: All systems reviewed & are unremarkable except as noted in HPI and below PFSH <Sylvie Yusuf PA-C - Last Filed: 03/05/19 16:03> Medical History (Updated 03/05/19 @ 16:02 by Sylvie Yusuf PA-C) Chronic renal failure (Acute) Peripheral arterial disease (Chronic) Biventricular automatic implantable cardioverter defibrillator in situ (Chronic) Ischemic cardiomyopathy (Chronic) CRF (chronic renal failure) (Chronic) Cardiomyopathy (Chronic) Atrial fibrillation (Chronic) CHF (congestive heart failure) (Chronic) COPD (chronic obstructive pulmonary disease) (Chronic) Social History household members: spouse Smoking Status: Current every day smoker Social History household members: spouse Smoking Status: Current every day smoker Exam <Sylvie Yusuf PA-C - Last Filed: 03/05/19 16:03> Narrative Exam Narrative: GENERAL APPEARANCE: Patient resting comfortably, in no distress. NECK/THYROID: Neck supple, no JVD. LUNGS: Breath sounds are a bit coarse with generalized expiratory crackles, no wheezes or rhonchi, no cough on exam HEART: Regular rate and rhythm without murmur, normal S1, S2, no S3 or S4. ABDOMEN: Soft, NT, ND, + BS x 4 quadrants EXTREMITIES: No cyanosis or edema. extremities are warm NEUROLOGIC: Sleepy but easily awakened, appropriate responses. No tremulousness or clonus noted Initial Vital Signs Initial Vital Signs: Vital Signs Temperature 99.0 F 03/05/19 12:35 Pulse Rate 74 03/05/19 12:35 Respiratory Rate 14 03/05/19 12:35 Blood Pressure 112/56 L 03/05/19 12:35 Pulse Oximetry 95 03/05/19 12:35 <Patricio Matos DO - Last Filed: 03/05/19 17:20> Initial Vital Signs Initial Vital Signs: Vital Signs Temperature 99.0 F 03/05/19 12:35 Pulse Rate 74 03/05/19 12:35 Respiratory Rate 14 03/05/19 12:35 Blood Pressure 112/56 L 03/05/19 12:35 Pulse Oximetry 95 03/05/19 12:35 Course <Sylvie Yusuf PA-C - Last Filed: 03/05/19 16:03> Additional Information: I spoke with Kar, nurse practitioner from [facility] who has appropriately helped direct patient in obtaining hospice care as he has been in and out of the hospital very frequently recently and both he and his wish to avoid repeated hospitalizations. She had already given a dose of Ativan today with resolution of patient's tremulousness. He reported feeling comfortable and has not been having any pain. chest x-ray does show a small amount of pleural fluid changed from last week which is not unexpected given his chronic conditions, no new pneumonia or other new findings on his lab work. His daughter is here and medication prescriptions have been provided for overnight. Hospice supplies are already at the house and they will be out to evaluate in the morning. Ambulance transport home arranged as patient is too weak to sit on his own. Catheter placed as he has been too weak to get up and to bathroom comfortably. Palliative care social media content manager Elidia has spoken with patient's daughter who is currently here and will be assisting with home care. Orders Ordered: ED Orders 03/05/19 12:49 Chest [XR chest 1V] Stat Vital Signs - 8 hr 03/05/19 12:35 03/05/19 13:24 03/05/19 13:51 Temperature 99.0 F Pulse Rate 74 74 75 Respiratory Rate 14 17 22 Blood Pressure 112/56 L Blood Pressure [Right Arm] 105/57 L 109/78 Pulse Oximetry 95 99 89 L 03/05/19 14:33 03/05/19 15:44 Temperature Pulse Rate 75 74 Respiratory Rate 15 18 Blood Pressure Blood Pressure [Right Arm] 108/59 L 104/70 Pulse Oximetry 99 97 <Patricio Matos DO - Last Filed: 03/05/19 17:20> Orders Ordered: ED Orders 03/05/19 12:49 Chest [XR chest 1V] Stat Vital Signs - 8 hr 03/05/19 12:35 03/05/19 13:24 03/05/19 13:51 Temperature 99.0 F Pulse Rate 74 74 75 Respiratory Rate 14 17 22 Blood Pressure 112/56 L Blood Pressure [Right Arm] 105/57 L 109/78 Pulse Oximetry 95 99 89 L 03/05/19 14:33 03/05/19 15:44 Temperature Pulse Rate 75 74 Respiratory Rate 15 18 Blood Pressure Blood Pressure [Right Arm] 108/59 L 104/70 Pulse Oximetry 99 97 MDM - SOB/Dyspnea <Sylvie Yusuf PA-C - Last Filed: 03/05/19 16:03> Lab Data Attestation: I reviewed the patient's lab results. Labs from today: CBC and chemistries without acute change, INR 2.7 Imaging Data Chest x-ray: Radiologist's impression: Sylvie Yusuf PA-C Find Patient Imaging Neal Caal 84 M 1935 ACTIVITY DATE EXAM STATUS AUTHOR 03/05/19 12:49 Signed Ilda Zavala [address] [address] XRay Report Signed Patient: Neal Caal TMR#: [id number] : [id number]:[id number] Age/Sex: 84 / MDate of Service: 03/05/19 Loc: ED Accession Number: [id number] Procedure: XR chest 1V Ordering Provider: Patricio Matos D.O. PROCEDURE: XR CHEST 1V INDICATIONS: shortness of breath TECHNIQUE: One view of the chest was acquired. [facility], 7:08. FINDINGS: Surgical changes and devices: Right-sided dual-lead ICD. Lungs and pleura: Low lung volumes with diffuse reticulation throughout both lung martinez. Retrocardiac atelectatic changes. Probable small bilateral pleural effusions. No pleural effusions or pneumothorax. Mediastinum: The heart is enlarged. Mediastinal contour is stable. Central vasculature is indistinct. Bones and chest wall: No suspicious bony lesions. Overlying soft tissues appear unremarkable. IMPRESSION: 1. Low lung volumes with coarse interstitial markings, fibrosis plus or minus interstitial edema. 2. Enlarged heart with pacemaker present and indistinct central vessels suggests CHF. 3. Probable small bilateral pleural effusions, new since the prior study. Dictated by: Ilda Zavala M.D. on 03/05/2019 at 13:18 Approved by: Ilda Zavala M.D. on 03/05/2019 at 13:22 Discharge Plan Departure Patient Disposition: Home Clinical Impression: Acute on chronic systolic heart failure, Ischemic cardiomyopathy COPD (chronic obstructive pulmonary disease) Qualifiers: COPD type: unspecified COPD Qualified Code(s): J44.9 - Chronic obstructive pulmonary disease, unspecified Chronic renal failure Qualifiers: Chronic kidney disease stage: stage 3 (moderate) Qualified Code(s): N18.3 - Chronic kidney disease, stage 3 (moderate) Discharge Date/Time: 03/05/19 15:59 Interventions: ED Discharge Assessment Last Done: 03/05/19 15:58 Instructions: Home-Based Palliative Care May Help Patients With Advanced Ill ness Stay Dle Activity Restrictions/Additional Instructions: Given your chronic medical conditions and frequent hospitalizations recently, it is very reasonable that you have elected home based palliative/hospice care. They have advised us that they will be out to your house to do an evaluation in the morning. In the interim, I have given you new prescriptions the to use as needed including lorazepam, which is what you had at clinic today that helped with the shaking. You can use that as needed for shakiness or nerves. I have also given you a prescription for liquid morphine that you can use if you should start to have any pain. since you have taken your medications today, the hospice professionals will review them with you tomorrow and they may have you stop some of your regular medications and will at others as needed to keep you comfortable at home. Prescriptions: New lorazepam 2 mg/mL concentrate 0.5 mg SL Q2HR PRN (Reason: anxiety/agitation) Qty: 15 RF: 0 morphine concentrate 100 mg/5 mL (20 mg/mL) solution 5 mg SL Q1-2H PRN (Reason: acute pain or respiratory distress) Qty: 30 RF: 0 No Action carvedilol [Coreg] 25 MG tablet 37.5 mg PO BID Qty: 0 RF: 0 clopidogrel [Plavix] 75 MG tablet 75 mg PO QAM Qty: 0 RF: 0 isosorbide mononitrate 30 mg Tablet Extended Release 24 Hr 30 mg PO QACBREAK Qty: 30 RF: 5 nystatin 100,000 unit/gram powder 1 applictn TOP BID Qty: 30 RF: 0 torsemide 20 mg Tablet 40 mg PO DAILY RF: 0 oseltamivir [Tamiflu] 30 mg Capsule 30 mg PO Q OTHER DAY RF: 0 hydralazine 10 mg tablet 10 mg PO TID RF: 0 magnesium hydroxide [Milk of Magnesia] 400 mg/5 mL Suspension 30 ml PO PRN PRN (Reason: Constipation) RF: 0 bisacodyl 10 mg Suppository 10 mg OR PRN PRN (Reason: Constipation) RF: 0 Fleet Enema 19-7 gram/118 mL Enema 1 ea OR PRN PRN (Reason: Constipation) RF: 0 bisacodyl 5 mg Tablet,Delayed Release (Dr/Ec) 5 - 10 mg PO PRN PRN (Reason: mild to severe constipation) RF: 0 warfarin 5 mg tablet 5 mg PO DAILY RF: 0 albuterol sulfate 90 mcg/actuation HFA aerosol inhaler 2 puff Inhalation Q4H PRN (Reason: Shortness Of Breath) RF: 0 alfuzosin 10 mg tablet extended release 24 hr 10 mg PO DAILY RF: 0 pregabalin 75 mg capsule 75 mg PO BID RF: 0 cetirizine 10 mg Tablet 10 mg PO DAILY PRN (Reason: Allergy Symptoms) RF: 0 Referrals: Mat Rodriguez MD [Primary Care Provider] - <Patricio Matos DO - Last Filed: 03/05/19 17:20> [facility] ED Attending Maríaature Attestation: I was immediately available in the department for consultation. Documentation has been reviewed. I agree with assessment and plan.
[2019-03-05 13:24] VITALS: BP 105/57; PULSE 74; RESP 17; O2SAT 99
[2019-03-05 13:51] VITALS: BP 109/78; PULSE 75; RESP 22; O2SAT 89
--- NOTE | 2019-03-05 13:53 | PC.NURSE ---
confirmed w/ [facility] that home oxygen was delivered as well as w/c and hospital bed. and dtr want to take him home today. Confirmed w/ Hospice that they will admit tomorrow @ 0900.
[2019-03-05 14:33] VITALS: BP 108/59; PULSE 75; RESP 15; O2SAT 99
[2019-03-05 15:44] VITALS: BP 104/70; PULSE 74; RESP 18; O2SAT 97
--- NOTE | 2019-03-05 15:56 | PC.NURSE ---
Report given to motor coach supervisor transporting home. They will ensure that oxygen concentrator is working and he is safely in bed. Daughter met with social service technician for additional information. Pt denies complaints at this time.
== END 2019-03-05 15:59 | disposition home or self-care (01) ==
PROVIDERS: Emergency Provider Internal Medicine; PCP Family Medicine
DX: I50.23 Acute on chronic systolic (congestive) heart failure (principal); I25.5 Ischemic cardiomyopathy; J44.9 Chronic obstructive pulmonary disease, unspecified
CPT/HCPCS: 51701; 71045; 99283